=== PATIENT | female | born 1975 | race Caucasian/White ===

== ENCOUNTER 2023-02-13 09:32 | Outpatient (OUT) | payer BC, SELFPAY ==
--- NOTE | 2023-02-13 09:35 | MM_ITS ---
Patient: MARTHA INIGUEZ Exam Date: 02/13/2023 : 1975 Gender:F Ordering : DR DARCIE LOWRY Admission #: [id number] Family : Order #: [id number] CLICK HERE TO VIEW EXAM RADIOLOGY REPORT PROCEDURE: MM TOMOSYNTHESIS SCREENING BI COMPARISON: MG MAMM SCREEN 3D EOBNI CAD, 01/11/2022. MG MAMM SCREEN 3D EBONI CAD, 01/07/2021. MG MAMM SCREEN EBONI W CAD, 12/02/2019. MG MAMM SCREEN EBONI W CAD, 10/20/2016. INDICATIONS: Screening mammogram Z12.31 Calculator Name NCI Breast Cancer Risk Assessment Tool 5 Year Breast Cancer Risk 1.70% Lifetime Breast Cancer Risk 18.20% Personal Breast Cancer No Personal Ovarian Cancer No Treatments None Family Cancers Mother with breast cancer at age 68; Grandmother-maternal with uterine cancer at age ~30; Grandmother-maternal with pancreas cancer at age 80; Father with lung cancer at age 68. LOCATION: [facility] BREAST COMPOSITION: Heterogeneously dense,which may obscure small masses. FINDINGS: DIAGNOSTIC CATEGORY 2--BENIGN FINDING: RIGHT BREAST: No significant suspicious finding. Scattered benign-appearing lymph nodes are present. No significant change has occurred. LEFT BREAST: No significant suspicious finding. No significant change has occurred. RECOMMENDATIONS: ROUTINE MAMMOGRAM AND CLINICAL EVALUATION IN 12 MONTHS. PLEASE NOTE: A NORMAL MAMMOGRAM DOES NOT EXCLUDE THE POSSIBILITY OF BREAST CANCER. A CLINICALLY SUSPICIOUS PALPABLE LUMP SHOULD BE BIOPSIED. Dictated by: Sunil Forte M.D. on 02/13/2023 at 16:06 Approved by: Sunil Forte M.D. on 02/13/2023 at 16:12
== END 2023-02-13 09:33 | disposition home or self-care (01) ==
LOC: MAMMO 09:33
PROVIDERS: PCP Family Medicine; Visit Provider Family Medicine
DX: Z12.31 Encounter for screening mammogram for malignant neoplasm of breast (principal); Z80.3 Family history of malignant neoplasm of breast; Z80.1 Family history of malignant neoplasm of trachea, bronchus and lung; Z80.49 Family history of malignant neoplasm of other genital organs; Z80.8 Family history of malignant neoplasm of other organs or systems
CPT/HCPCS: 77063; 77067

== ENCOUNTER 2024-02-20 13:44 | Outpatient (OUT) | payer BC, SELFPAY ==
--- NOTE | 2024-02-20 13:51 | MM_ITS ---
Patient Name: MARTHA INIGUEZ MR#: [id number] : 1975 Exam Date: 02/20/2024 Ordering Doctor: DR DARCIE LOWRY RADIOLOGY REPORT PROCEDURE: MM TOMOSYNTHESIS SCREENING BI COMPARISON: MM TOMOSYNTHESIS SCREENING BI, 02/13/2023. MG MAMM SCREEN 3D EBONI CAD, 01/11/2022. MG MAMM SCREEN 3D EBONI CAD, 01/07/2021. MG MAMM SCREEN EBONI W CAD, 10/20/2016. INDICATIONS: Screening for malignant neoplasm Calculator Name NCI Breast Cancer Risk Assessment Tool 5 Year Breast Cancer Risk 1.80% Lifetime Breast Cancer Risk 18.00% Personal Breast Cancer No Personal Ovarian Cancer No Treatments None Family Cancers Mother with breast cancer at age 68; Grandmother-maternal with uterine cancer at age ~30; Grandmother-maternal with pancreas cancer at age 80; Father with lung cancer at age 68. LOCATION: [facility] BREAST COMPOSITION: The breasts are heterogeneously dense,which may obscure small masses. FINDINGS: DIAGNOSTIC CATEGORY 2--BENIGN FINDING: RIGHT BREAST: No significant suspicious finding. Scattered benign-appearing lymph nodes are present. No significant change has occurred. LEFT BREAST: No significant suspicious finding. No significant change has occurred. RECOMMENDATIONS: ROUTINE MAMMOGRAM AND CLINICAL EVALUATION IN 12 MONTHS. PLEASE NOTE: A NORMAL MAMMOGRAM DOES NOT EXCLUDE THE POSSIBILITY OF BREAST CANCER. A CLINICALLY SUSPICIOUS PALPABLE LUMP SHOULD BE BIOPSIED. Dictated by: Sunil Forte M.D. on 02/22/2024 at 13:46 Approved by: Sunil Forte M.D. on 02/22/2024 at 13:49
== END 2024-02-20 13:45 | disposition home or self-care (01) ==
LOC: MAMMO 13:46
PROVIDERS: PCP Family Medicine; Visit Provider Family Medicine
DX: Z12.31 Encounter for screening mammogram for malignant neoplasm of breast (principal); Z80.3 Family history of malignant neoplasm of breast; Z80.1 Family history of malignant neoplasm of trachea, bronchus and lung; Z80.8 Family history of malignant neoplasm of other organs or systems
CPT/HCPCS: 77063; 77067

== ENCOUNTER 2025-03-09 09:31 | Outpatient (OUT) | payer BC, SELFPAY ==
--- OUTSIDE RECORDS SUMMARY | 2018-08-21 04:30 | XMS_ITS | Continuity of Care Document ---
Author Organization [facility] Address [address] [place] [address] [place] [address] Phone Care Team Providers Care Mill House Supervisor Name Role Phone Unavailable Unavailable Unavailable Medications Medication Instructions Dosage Effective Dates (start - stop) Status Comments Macrobid 100 mg capsule take 1 capsule b y oral route every day - Active oxybutynin chloride ER 10 mg tablet,extended release 24 hr take 1-2 tablets by oral route every day - Active phenazopyridine 200 mg tablet take 1 tablet by oral route 3 times every day after meals 200 MG - Active Procedures Procedure Date PREV VISIT, EST, AGE 40-64 OBTAINING PAP SMEAR BUNDLED SERVICE VOID TICKET POSTOP FOLLOW-UP VISIT OFFICE/OUTPATIENT VISIT, EST CYSTOSCOPY INJECTION FOR BLADDER X-RAY POSTOP FOLLOW-UP VISIT OFFICE CONSULTATION TOTAL HYSTERECTOMY OFFICE CONSULTATION OFFICE/OUTPATIENT VISIT, EST OFFICE/OUTPATIENT VISIT, EST TRANSVAGINAL US, NON-OB PREV VISIT, NEW, AGE 40-64 URINALYSIS, AUTO, W/O SCOPE Advance Directives Directive Yes / No Effective Date File Name No Information Encounters Encounter Description Practice Location Reason(s) For Visit Diagnoses Date Provider Providers Copied on Encounter PREV VISIT, EST, AGE 40-64 [facility], [address], [place], [place], [id number] , [place] tel:[phone] [facility] No Information 9 No Information [facility], [address], [place], [place], [address] , [place] tel: [phone] [facility] No Information 7 No Information [facility], [address], [place], [place], [address] , [place] tel: [phone] [facility] No Information 7 No Information [facility], [address], [place], [place], [address] , [place] tel: [phone] [facility] No Information 7 Emery Clark. [address], [place], [place], [address], [place]. tel:[phone] OFFICE/OUTPAT IENT VISIT, [facility] [place] [employer] [facility], [address], [place], [place], [address] , [place] tel: [phone] [facility] Frequent urination (chief complaint) Urinary frequencyLacerati on of bladder, subsequent encounter 7 Tiffanie Guerra. [address], [place], [place], [address], [place]. tel:[phone] Referring Provider: Charlie Moreno MD, [address], [place], [address] . tel:[phone] [employer] [facility], [address], [place], [place], [address] , [place] [phone] [facility] No Information 7 Tiffanie Guerra. [address], [place], [place], [address], [place]. tel:[phone] Referring Provider: Charlie Moreno MD, [address], [place], [address] . tel:[phone] [facility], [address], [place], [place], [address] , [place] tel: [phone] [facility] No Information No Information OFFICE CONSULTATION [employer] [facility], [address], [place], [place], [address] , [place] tel: [phone] [facility] No Information Tiffanie Guerra. [address], [place], [place], [address], [place]. tel:[phone] Referring Provider: Charlie Moreno MD, [address], [place], [address] . tel:[phone] [facility], [address], [place], [place], [address] , [place] tel: [phone] [facility] IP No Information No Information OFFICE CONSULTATION [employer] [facility], [address] [place] [address] [address], [place], [place], [address] , [place] tel: [phone] [facility] No Information 7 Tiffanie Guerra. [address], [place], [place], [address], [place]. tel:[phone] Referring Provider: Charlie Moreno MD, [address], [place], [address] . tel:[phone] [facility], [address], [place], [place], [address] , [place] tel: [phone] [facility] No Information No Information OFFICE[facility]OUTPAT [facility]ENT VISIT, [facility], [address], [place], [place], [address] , [place] tel:[phone] [facility] No Information No Information [facility], [address], [place], [place], [address] , tel: [phone] [facility] No Information No Information PREV VISIT, NEW, AGE 40-64 [facility], [address], [place], [address] , tel: [phone] [facility] No Information No Information Family History Family Member Type Diagnosis Age At Onset No Information Payers Payer name Insurance type Covered green party ID Tsering kennedy(s) Robbie WINTER [id number] Social History Type Description Quantity Date Captured Comments Sex Female Smoking Status No Information Chief Complaint And Reason For Visit No Information Reason For Referral Reason For Referral No Information Plan Of Treatment Date Type Action Status Goal Depression screening. Due on due Goal URINALYSIS NONAUTO W/O SCOPE . Due on due Goal Glucose. Due on due Goal HPV, high+low-risk. Due on A due Goal Cytology report of Cervical and vaginal smear or scraping Cyto stain. Due on due Goal Pap/HPV testing. Due on due Goal Td vaccine. Due on 17 due Goal Influenza vaccine. Due on Au due Goal CHEMICAL ENGINEERING PROFESSOR/Breast exam. Due on due Goal Digital Mammogram Screening. Due on due Goal SCREENINGMAMMOGRAPHYDIGITAL. Due on due History Of Present Illness Encounter Date Complaint History Of Prese nt Illness Frequent urination (comments) Th is young lady just underwent a cystogram and cystoscopy following repair of a bladder tear. We identified during her VCUG that she has Grade 2 reflux which i explained to the patient. Frequent urination The onset was sudden. The patient reports pain in the back. It occurs constantly. The problem is unchanged. Past surgical treatment was Cystoscopy. Associated symptoms include incomplete emptying and urgency. Pertinent negatives include constipation, dysuria, fecal incontinence, fever, urinary frequency, hematuria, urinary hesitancy, leakage requiring pads, loss of vaginal sensation, nocturia, pain, pelvic pain, slow stream, strain to urinate and recurrent UTI. Additional information: Patient claims that she has frequency mildred 15 mins with incomplete emptying. Patient is s/p cystogram on 01/30/17. Functional Status Date Functional Assessmen t No Information Instructions Date Instruction Additional Infor mation No Information Assessments Type Assessment Date No Information Patient Care Teams Name Effective Dates (start - stop) Status Members No Information
--- OUTSIDE RECORDS SUMMARY | 2025-03-09 09:35 | XMS_ITS | Encounter Summary ---
Author Organization [facility] Address [address] [place] [address] Care Team Providers Care Logging Contractor Name Role Phone Brigette Snell MD Unavailable [phone] Yisel Armenta MD Primary Care Provider [phone] Nichole Dozier ACTIVITIES LEADER Unavailable [phone] Lisa Guallpa ACTIVITIES LEADER Unavailable [phone] Eladia Lazcano [facility] Unavailable Encounter Details Date Type Department Care Team (Late st Contact Info) Description 11/14/2022 Abstract [facility] [address] [place] [phone] Lisa Guallpa ACTIVITIES LEADER [address] [place] [address] [phone] Social History Tobacco Use Types Packs/Day Years Used Date Smoking Tobacco: Never Alcohol Use Standard Drinks/Week Comments Never 0 (1 standard drink = 0.6 oz pure alcohol) Caffeine intake 1-2 cups per day pop AUDIT-C Answer Date Recorded Q1: How often do you have a drink containing alc ohol? Never 11/15/2022 Q2: How many drinks containi ng alcohol do you have on a typical day when you are drinking? 1 or 2 11/15/2022 Q3: How often do you have six or more drinks on one occasion? 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 Never 11/15/2022 10:34 AM EDT Seema Berry LPN Q2: How many drinks containi ng alcohol do you have on a typical day when you are drinking? 1 or 2 11/15/2022 10:34 AM EDT Seema Berry LPN Q3: How often do you have si x or more drinks on one occasion? Never 11/15/2022 10:34 AM EDT Seema Cao LPN documented as of this encounter Plan of Treatment Upcoming Encounters Date Type Department Care Team (Late st Contact Info) Description 05/01/2025 9:00 AM EST Office Visit [facility] [address] [place] [address] [place] [address] Sincere Hinson MD [address] [facility] [address] [place] [address] documented as of this encounter Visit Diagnoses Not on filedocumented in this encounter Care Teams Logging Contractor Relationship Specialty Start Date End Date Brigette Snell MD [address] [place] [address] PCP - [place] [employer] [employer] 04/18/21 Yisel Armenta MD [address] [place] [address] PCP - General Family Medicine 11/15/22 Nichole Dozier NP [address] [place] [address] PCP - [employer] 01/16/2305/17 Lisa Guallpa ACTIVITIES LEADER [address] [facility] [address] [address] PCP - [place] [employer] 05/18/2306/17 Eladia Lazcano, [facility] [address] [facility] [address] [place] [address] Guitar Repair Technician Behavioral Health 07/01/24 documented as of this encounter
--- OUTSIDE RECORDS SUMMARY | 2025-03-09 09:35 | XMS_ITS | Encounter Summary ---
Author Organization [facility] Address [address] [place] [address] Care Team Providers Care Licensed Practical Vocational Nurse Name Role Phone Brigette Snell MD Unavailable [phone] Yisel Armenta MD Primary Care Provider [phone] Nichole Dozier BUSINESS APPLICATIONS DEVELOPER Unavailable [phone] Lisa Guallpa BUSINESS APPLICATIONS DEVELOPER Unavailable [phone] Eladia Lazcano [facility] Unavailable Reason for Visit * Reason Comments Med Refill Encounter Details Date Type Department Care Team (Late Contact Info) Description 11/06/2022 Refill [facility] [place] [facility] [address]SEPH [address] [place] [phone] Sincere Hinson MD [address] Joseph [address] [place] [address] [phone] Migraine without aura and without status migrainosus, not intractable (Primary Dx) Social History Tobacco Use Types Packs/Day Years Used Date Smoking Tobacco: Never Assessed Comments Unknown Sex and Gender Information Value Date Recorded Sex Assigned at Female 11/13/2022 10:45 PM EDT Legal Sex Female 7:06 PM EDT Gender Identity Female 08/30/2022 7:06 PM EDT Sexual Orientation Straight 11/13/2022 10 :45 PM EDT documented as of this encounter Plan of Treatment Upcoming Encounters Date Type Department Care Team (Late Contact Info) Description 05/01/2025 9:00 AM EST Office Visit [facility] [address] [facility] [address] [place] [address] Sincere Hinson MD [address] [facility] [address] [place] [address] [phone] documented as of this encounter Visit Diagnoses Diagnosis Migraine without aura and without status migrainosus, not intractable- Primary documented in this encounter Care Teams Licensed Practical Vocational Nurse Relationship Specialty Start Date End Date Brigette Snell MD [address] [place] [address] PCP - [place] [employer] 04/18/21 Yisel Armenta MD [address] [place] [address] PCP - General Family Medicine 11/15/22 Nichole Dozier NP [address] [place] [address] PCP - [place] [employer] 01/16/2305/17 Lisa Guallpa NP [address] [place] [phone] PCP - [place] [employer] 05/18/2306/17 Eladia Lazcano, [facility] [address] [facility] [address] [place] [address] Ladle Cleaner Behavioral Health 07/01/24 documented as of this encounter
--- OUTSIDE RECORDS SUMMARY | 2025-03-09 09:35 | XMS_ITS | Encounter Summary ---
Author Organization [facility] [facility] Address [id number] [address] [place] [address] Care Team Providers Care Water Rights Specialist Name Role Phone Yisel Armenta MD Primary Care Provider [phone] Encounter Details Date Type Department Care Team (Late st Contact Info) Description 09/01/2024 Telephone [facility] [address] [place] [phone] Giovani Caro PA [address] [facility], [address] [place] [address] Social History Tobacco Use Types Packs/Day Years Used Date Smoking Tobacco: Never Smokeless Tobacco: Never Alcohol Use Standard Drinks/Week Comments Not Currently 0 (1 standard drink = 0.6 oz pur e alcohol) Childcare Answer Date Recorded Childcare Unknown 11/27/2018 Employment Answer Date Recorded Employment Unknown 11/27/2018 Hunger Screening Answer Date Recorded Within the past 12 months we worried whether our food would run out before we got money to buy more. Never True 08/06/2024 Within the past 12 months th e food we bought just didn't last and we didn't have money to get more. Never True 08/06/2024 Purpose - Life Answer Date Recorded Purpose and direction in life Unknown Comments No Sex and Gender Information Value Date Recorded Sex Assigned at Not on file Legal Sex Female 12:04 PM EDT Gender Identity Not on file Sexual Orientation Not on file documented as of this encounter Miscellaneous Notes * Telephone Encounter - Trinity Rodriguez - 09/01/2024 12:24 PM EDT Called pt to see if she would like to move her procedure up to 09/12. Left VM documented in this encounter Plan of Treatment Not on file documented as of this encounter Visit Diagnoses Not on filedocumented in this encounter Care Teams Water Rights Specialist Relationship Specialty Start Date End Date Yisel Armenta MD [address] [place] [address] PCP - General Family Medicine 10/26/16 documented as of this encounter
--- OUTSIDE RECORDS SUMMARY | 2025-03-09 09:35 | XMS_ITS | Encounter Summary ---
Author Organization [facility] Address [address] [place] [address] Care Team Providers Care Paper Plate Machine Tender Name Role Phone Brigette Snell MD Unavailable [phone] Yisel Armenta MD Primary Care Provider [phone] Nichole Dozier BATCH OR CONTINUOUS STILL OPERATOR Unavailable [phone] Lisa Guallpa BATCH OR CONTINUOUS STILL OPERATOR Unavailable [phone] Eladia Lazcano [facility] Unavailable Encounter Details Date Type Department Care Team (Late st Contact Info) Description 11/28/2022 Abstract [facility] [address] [facility] [address] [place] [phone] Eladia Lazcano, [facility] [address] [facility] [address] [place] [address] Social History Tobacco Use Types Packs/Day Years Used Date Smoking Tobacco: Never Passive Smoke Exposure: Never Smokeless Tobacco: Never Alcohol Use Standard Drinks/Week Comments Yes 0 (1 standard drink = 0.6 oz [...] file Not on file Not on file COVID-19 Exposure Response Date Recorded In the last 10 days, have yo u been in contact with someone who was confirmed or suspected to have Coronavirus/COVID-19? No / Unsure 11/28/2022 9:03 AM EDT documented as of this encounter Plan of Treatment Upcoming Encounters Date Type Department Care Team (Late st Contact Info) Description 05/01/2025 9:00 AM EST Office Visit [facility] [address] [place] [address] [place] [address] Sincere Hinson MD [address] [facility] [address] [place] [phone] documented as of this encounter Visit Diagnoses Not on filedocumented in this encounter Care Teams Paper Plate Machine Tender Relationship Specialty Start Date End Date Brigette Snell MD [address] [place] [address] PCP - [place] [employer] 04/18/21 Yisel Armenta MD [address] [place] [address] PCP - General Family Medicine 11/15/22 Nichole Dozier NP [address] [facility] [place] [address] PCP - [place] [employer] 01/16/2305/17 Lisa Guallpa NP [address] [place] [address] PCP - [place] [employer] 05/18/2306/17 Eladia Lazcano, [facility] [address] [facility] [address] [place] [address] Operating Systems Programmer Behavioral Health 07/01/24 documented as of this encounter
--- OUTSIDE RECORDS SUMMARY | 2025-03-09 09:35 | XMS_ITS | Encounter Summary ---
Author Organization [facility] Healthcare Address [address] [place] [address] Care Team Providers Care Business Services Coordinator Name Role Phone Brigette Snell MD Unavailable Yisel Armenta MD Primary Care Provider [phone] Nichole Dozier PSYCHOLOGICAL AIDE Unavailable Lisa Guallpa PSYCHOLOGICAL AIDE Unavailable Eladia Lazcano [facility] Unavailable Encounter Details Date Type Department Care Team (Late st Contact Info) Description 11/08/2022 Abstract [facility] [address] [place] [phone] Marv Allen, PT [address] [place], [place] [phone] Social History Tobacco Use Types Packs/Day Years Used Date Smoking Tobacco: Never Tobacco Cessation:Counseling Given: Not Answered Alcohol Use Standard Drinks/Week Comments Never 0 (1 standard drink = 0.6 oz pure alcohol) Caffeine intake 1-2 cups per day pop Comments Unknown Sex and Gender Information Value [...] on file documented as of this encounter Plan of Treatment Upcoming Encounters Date Type Department Care Team (Late st Contact Info) Description 05/01/2025 9:00 AM EST Office Visit [facility] [address] [email or web address] [address] [place] [address] Sincere Hinson MD [address] [facility] [address] [facility] [place], [place] [phone] documented as of this encounter Visit Diagnoses Not on filedocumented in this encounter Care Teams Business Services Coordinator Relationship Specialty Start Date End Date Brigette Snell MD [address] [place] [address] PCP - [place] [employer] 04/18/21 Yisel Armenta MD [address] [place] [address] PCP - General Family Medicine 11/15/22 Nichole Dozier NP [address] [place] [address] PCP - [place] [employer] 01/16/2305/17 Lisa Guallpa NP [address] [place] [address] PCP - [place] [employer] 05/18/2306/17 Eladia Lazcano, [facility] [address] [facility] [[email or web address] [address] [place] [address] Gas Compressor Operator Behavioral Health 07/01/24 documented as of this encounter
--- OUTSIDE RECORDS SUMMARY | 2025-03-09 09:36 | XMS_ITS | Clinical Summary ---
Author Organization [employer] Address [id number] [address] [place] [address] Care Team Providers Care Heel Pricker Name Role Phone Yisel Armenta MD Primary Care Provider [phone] Allergies Active Allergy Reactions Criticality Noted Date Comments Sulfamethoxazole-Trimethoprim Rash Low 2016 Cephalosporins 06/29/2021 Other reaction(s): nausea/vomiting Penicillins Hives,Rash Low 02/28/2017 Medications DULoxetine (CYMBALTA) 60 mg capsule Take 90 mg by mouth nightly. Active topiramate 200 mg capsule,extende d release 24hr Take 200 mg by mouth nightly. Active atorvastatin (LIPITOR) 20 mg tablet Take 1 tablet (20 mg total) by mouth in the morning. Active nebivolol (BYSTOLIC) 10 mg tablet Take 1 tablet (10 mg total) by mouth in the morning and at bedtime. Active albuterol (PROVENTIL HFA;VENTOLIN HFA) 90 mcg/actuation inhaler Inhale 2 puffs every 6 (six) hours as needed. Active amphetamine-dex troamphetamine XR (ADDERALL XR) 20 mg 24 hr capsule 03/22/2021 Active erenumab-aooe 140 mg/mL auto-injectorIn dications:migra ine prevention Inject 140 mg under the skin every 28 days Indications: migraine prevention. Active gabapentin (NEURONTIN) 300 mg capsule Take 1 capsule (300 mg total) by mouth in the morning and at bedtime. Active traMADoL (ULTRAM) 50 mg tablet Take 1 tablet (50 mg total) by mouth every 6 (six) hours as needed for pain. Active cholecalciferol , vitamin D3, 5,000 units tablet Take 1 tablet (5,000 Units total) by mouth in the morning. Active lidocaine (LIDODERM) 5 % Place 1 patch on the skin daily. Remove & Discard patch within 12 hours or as directed by MD Active Active Problems Problem Noted Date Diagnosed Date Lumbar spondylosis 03/12/2024 Trochanteric bursitis of both hips 03/12/2024 Spinal stenosis of lumbar re gion with neurogenic claudication 03/12/2024 Disorder of sacrum 03/12/2024 Dehydration 08/23/2021 POTS (postural orthostatic tachycardia syndrome) 01/06/2021 Seasonal allergies 01/06/2021 NICOLE (obstructive sleep apnea) 01/06/2021 Dyslipidemia 01/06/2021 Depression 01/06/2021 H/O cardiomyopathy 01/06/2021 Dyspnea on exertion 01/06/2021 Chronic cough 01/06/2021 Mild persistent asthma without complication 12/17 Encounters Date Type Department Care Team Description 01/20/2025 Travel from Last 3 Months Family History Medical History Relation Name Comments Alcohol abuse Father Cancer Father Clotting disorder Father Heart disease Father Hypertension Father Lung cancer Father Lung disease Father Diabetes Maternal Aunt Hearing loss Maternal Aunt Diabetes Maternal Grandfather Heart disease Maternal Grandfather Hypertension Maternal Grandfather Cancer Maternal Grandmother Colon cancer Maternal Grandmother Ovarian cancer Maternal Grandmother Pancreatic cancer Maternal Grandmother Anxiety disorder Mother Arthritis Mother Breast cancer Mother Cancer Mother Hypertension Mother Mental illness Mother Miscarriages / Stillbirths Mother Cancer Niece Heart disease Paternal Grandfather Hypertension Paternal Grandfather Stroke Paternal Grandfather Relation Name Status Comments Father Maternal Aunt Maternal Grandfather Maternal Grandmother Mother Niece Other Paternal Grandfather Social History Tobacco Use Types Packs/Day Years Used Date Smoking Tobacco: Never Smokeless Tobacco: Never Tobacco Cessation:Counseling Given: Not Answered Alcohol Use Standard Drinks/Week Comments Not Currently 0 (1 standard drink = 0.6 oz pur e alcohol) Childcare Answer Date Recorded Childcare Unknown 11/27/2018 Employment Answer Date Recorded Employment Unknown 11/27/2018 Hunger Screening Answer Date Recorded Within the past 12 months we worried whether our food would run out before we got money to buy more. Never True 10/22/2024 Within the past 12 months th e food we bought just didn't last and we didn't have money to get more. Never True 10/22/2024 Purpose - Life Answer Date Recorded Purpose and direction in life Unknown Comments No Sex and Gender Information Value Date Recorded Sex Assigned at Not on file Legal Sex Female 12:04 PM EDT Gender Identity Not on file Sexual Orientation Not on file Last Filed Vital Signs Vital Sign Reading Time Taken Comments Blood Pressure 145/98 10/22/2024 8:26 AM EDT Pulse 80 10/22/2024 8:26 AM EDT Temperature 36.6 C (97.8 F) 09/19/2024 6:45 AM EDT Respiratory Rate 20 10/22/2024 8:26 AM EDT Oxygen Saturation 100% 09/19/2024 7:51 AM EDT Inhaled Oxygen Concentration - - Weight 79.4 kg (175 lb) 07/02/2024 8:22 AM EST Height 157.5 cm (5' 2 ) 07/02/2024 8:22 AM EST Body Mass Index 32.01 07/02/2024 8:22 AM EST Plan of Treatment Health Maintenance Due Date Last Done Comments Depression Screening 1988 Adult BMI Follow Up Plan 1994 DTaP,Tdap and Td Vaccines (2 - Td or Tdap) 11/16/2021 11/17/2011 COVID-19 Vaccine (4 - 2024-2 6 season) 2025 06/25/2021, 10/13/2020, 09/15/2020 Influenza Vaccine 02/16/2025 03/03/2024, , 03/27/2022, Additional history exists Adult BMI Screening 07/02/2025 07/02/2024 Tobacco Screening 10/22/2025 10/22/2024 Medical Devices Not on file Insurance ANTH Care Teams Heel Pricker Relationship Specialty Start Date End Date Yisel Armenta MD [address] [place] [address] PCP - General Family Medicine 10/26/16
--- OUTSIDE RECORDS SUMMARY | 2025-03-09 09:36 | XMS_ITS | Patient Health Record ---
Author Organization [facility] in [place] Address [address] [place] [address] Support Name Relationship Address Phone JosephPaddy hartley Emergency Contact Unknown Unavailabl e Elida Ruiz Guarantor Unknown [phone] Allergies Allergen (clinical drug ingredient) Drug/Non Drug Allergy documented on EMR Reaction Allergy Type Onset Date Status sulfamethoxazole / trimethoprim bactrim (uncoded) Unknown Allergy Active A-Cillin (penicillin) Unknown Drug Allergy Active Reason For Referral No Information Medications Medication SIG (Take, Route, Frequency, Duration) Notes Start Date End Date Status Midodrine HCl 10 MG 1 tablet Orally Thre e times a day Active Cymbalta 30 MG 1 capsule Orally Twice a day 3 daily Active Trokendi XR 200 MG 1 capsule Orally Onc e a day 300 mg daily Active Bystolic 5 MG 1 tablet Orally Once a day Active Ferrous Sulfate 325 (65 Fe) MG 1 tablet Orally Once a day 2 daily Active Atorvastatin Calcium 20 MG 1 tablet Orally Once a day Active Vitamin D (Ergocalciferol) 71046 UNIT 1 capsule Orally weekly Active Social History Tobacco Use: Social History Observation Description Date Details (start date - stop date) Never Smoker NA - NA Tobacco Use/Smoking Question Answer Notes Patient is a nonsmoker Problems Problem Type SNOMED Code ICD Code Onset Dates Problem Status W/U Status Risk Notes Problem Lumbosacral spondylosis with radiculopathy (083965321) Lumbosacral spondylosis with radiculopathy (M47.27) Active confirmed Problem Lumbosacral spondylosis without myelopathy (38194850) Lumbosacral spondylosis without myelopathy (M47.817) Active confirmed Plan Of Treatment No Information Insurance Providers Payer Name Payer Address Payer Phone Subscriber Number Group Number Insured Name Patient Relationship to Insured Coverage Start Date Coverage End Date AN[employer]M ACCESS PPO PLUS LOCAL PLAN [address] [place] [phone] [id number] Elida Ruiz Self - patient is the insured 8 Medical (General) History Medical History History ICD Code cholesterol mcrae syundrome eds hypertension migraines Surgical History Surgery Date(Month/Year) implanted loop recorder b knee scope gallbladder c section sinus x 2 hysterectomy
--- OUTSIDE RECORDS SUMMARY | 2025-03-09 09:36 | XMS_ITS | Encounter Summary ---
Author Organization [employer] Address [id number] [address] [place] [address] Care Team Providers Care Gunner Mate Name Role Phone Yisel Armenta MD Primary Care Provider [phone] Reason for Visit * Reason Comments Med Refill Encounter Details Date Type Department Care Team (Late st Contact Info) Description 04/19/2022 Refill [facility] [address] [place] [address] Joana Oh, DO [address] [phone] Mild persistent asthma without complication Social History Tobacco Use Types Packs/Day Years Used Date Smoking Tobacco: Never Smokeless Tobacco: Never Childcare Answer Date Recorded Childcare Unknown 11/27/2018 Employment Answer Date Recorded Employment Unknown 11/27/2018 Purpose - Life Answer Date Recorded Purpose and direction in life Unknown Comments No Sex and Gender Information Value Date Recorded Sex Assigned at Not on file Legal Sex Female 12:04 PM EDT Gender Identity Not on file Sexual Orientation Not on file COVID-19 Exposure Response Date Recorded In the last month, have you been in contact with someone who was confirmed or suspected to have Coronavirus / COVID-19? No / Unsure 03/31/2022 1:09 PM EDT documented as of this encounter Plan of Treatment Not on file documented as of this encounter Visit Diagnoses Diagnosis Mild persistent asthma without complication documented in this encounter Care Teams Gunner Mate Relationship Specialty Start Date End Date Wonderly, Yisel Forte MD [address] [place] [address] PCP - General Family Medicine 10/26/16 documented as of this encounter
--- OUTSIDE RECORDS SUMMARY | 2025-03-09 09:36 | XMS_ITS | Encounter Summary ---
Author Organization [facility] Address [address] [place] [address] Care Team Providers Care Professor Of Practice Name Role Phone Brigette Snell MD Unavailable [phone] Yisel Armenta MD Primary Care Provider Nichole Dozier ACTIVITIES LEADER Unavailable [phone] Lisa Guallpa ACTIVITIES LEADER Unavailable Eladia Lazcano [facility] Unavailable Encounter Details Date Type Department Care Team (Late st Contact Info) Description 12/15/2022 Abstract [facility] [address] [place] [phone] Sincere Hinson MD [address] [place] [address] [phone] Social History Tobacco Use Types Packs/Day Years [...] [facility] [address] [place] [phone] Sincere Hinson MD [address] [place] [address] documented as of this encounter Visit Diagnoses Not on filedocumented in this encounter Care Teams Professor Of Practice Relationship Specialty Start Date End Date Brigette Snell MD [address] [place] [address] PCP - [employer] 04/18/21 Yisel Armenta MD [address] [place] [address] PCP - General Family Medicine 11/15/22 Nichole Dozier NP [address] [place] [address] PCP - [employer] 01/16/2305/17 Lisa Guallpa NP [address] [place] [id number] PCP - [employer] 05/18/2306/17 Eladia Lazcano, [facility] [address] [place] [address] [facility] 07/01/24 documented as of this encounter
--- OUTSIDE RECORDS SUMMARY | 2025-03-09 09:36 | XMS_ITS | Clinical Summary ---
Author Organization [facility], [facility] Address [address] [place] [address] Care Team Providers Care Admitting Interviewer Name Role Phone Unavailable Primary Care Provider Unavailabl e Social History Tobacco Use Types Packs/Day Years Used Date Smoking Tobacco: Never Assessed Comments Unknown Sex and Gender Information Value Date Recorded Sex Assigned at Not on file Legal Sex Female 8:03 AM EDT Gender Identity Not on file Sexual Orientation Not on file Plan of Treatment Health Maintenance Due Date Last Done Comments Cologuard (average risk only) 1976 Colonoscopy 1976 Colorectal Cancer Screening 1976 FIT (average risk only) 1976 Hepatitis C Screening 1976 Alternating Mammogram/MRI 1988 DTaP,Tdap,and Td Vaccines (1 - Tdap) 1995 Hepatitis B Vaccine ages 19 years and older (1 of 3 - 19+ 3-dose series) 1995 Breast Cancer Screening 1996 Mammogram 1996 Cervical Cancer Screening: Cytology 1997 COVID-19 Vaccine (2023-2 5 season) 2025 Influenza Vaccine (#1) 2025 Respiratory Syncytial Virus (RSV) or ages 60 years and older (1 - 1-dose 75+ series) 2051 Pneumococcal Combined Aged Out No deisi damián eligible based on patient's age to complete this topic Respiratory Syncytial Virus (RSV) ages 0 thru 19 months Aged Out No longer eligible based on patient's age to complete this topic
--- OUTSIDE RECORDS SUMMARY | 2025-03-09 09:36 | XMS_ITS | Encounter Summary ---
Author Organization [employer] Address [id number] [address] [place] [address] Care Team Providers Care Scoop Operator Name Role Phone Yisel Armenta MD Primary Care Provider [phone] Encounter Details Date Type Department Care Team (Late st Contact Info) Description 08/23/2021 Abstract [facility] - Medical Oncology [address] [place] [address] Babita Jeffries Social History Tobacco Use Types Packs/Day Years [...] suspected to have Coronavirus/COVID-19? No / Unsure 08/25/2021 8:18 AM EST documented as of this encounter Plan of Treatment Not on file documented as of this encounter Visit Diagnoses Not on filedocumented in this encounter Care Teams Scoop Operator Relationship Specialty Start Date End Date Yisel Armenta MD [address], [place] [phone] PCP - General Family Medicine 10/26/16 documented as of this encounter
--- OUTSIDE RECORDS SUMMARY | 2025-03-09 09:36 | XMS_ITS | Encounter Summary ---
Author Organization [facility] Address [address] [place] [address] Phone Care Team Providers Care Laboratory Coordinator Name Role Phone Unavailable Primary Care Provider Unavailabl e Encounter Details Date Type Department Care Team (Late st Contact Info) Description 09/10/[address] [facility] [address] [place] [address] Conversion, Onbase Social History Tobacco Use Types Packs/Day Years Used Date Smoking Tobacco: Never Assessed Comments Unknown Sex and Gender Information Value Date Recorded Sex Assigned at Not on file Legal Sex Female 1:08 PM EST Gender Identity Not on file Sexual Orientation Not on file documented as of this encounter Plan of Treatment Scheduled Orders Name Type Priority Associated Diagnoses Orde r Schedule MISCELLANEOUS GENETICS TEST Lab Ordered: 09/10/2017 documented as of this encounter Visit Diagnoses Not on filedocumented in this encounter
--- OUTSIDE RECORDS SUMMARY | 2025-03-09 09:36 | XMS_ITS | Encounter Summary ---
Author Organization [facility] Address [address] [facility] [place] [place] [address] Care Team Providers Care Radio Installer Automobile Name Role Phone Yisel Armenta MD Primary Care Provider Nichole Dozier SENIOR LEAD SOFTWARE ENGINEER Unavailable [phone] Lisa Guallpa SENIOR LEAD SOFTWARE ENGINEER Unavailable Eladia Lazcano [facility] Unavailable Encounter Details Date Type Department Care Team (Late st Contact Info) Description 04/01/2023 Abstract [facility] [address] [facility] [address] [place] [phone] Eladia Lazcano, [facility] [address] [facility] [address] [place] [address] Social History Tobacco Use Types Packs/Day Years [...] suspected to have Coronavirus/COVID-19? No / Unsure 03/27/2023 11:45 PM EDT documented as of this encounter Plan of Treatment Upcoming Encounters Date Type Department Care Team (Late st Contact Info) Description 05/01/2025 9:00 AM EST Office Visit [facility] [address] [place] [address] Sincere Hinson MD [address] [place] [address] documented as of this encounter Visit Diagnoses Not on filedocumented in this encounter Care Teams Radio Installer Automobile Relationship Specialty Start Date End Date Yisel Armenta MD PCP - General Family Medicine 11/15/22 Nichole Dozier NP [address] [place] [address] PCP - [employer] 01/16/2305/17 Lisa Guallpa NP [address] [place] [address] PCP - [employer] 05/18/2306/17 Eladia Lazcano [facility] [address] [place] [address] [facility] 07/01/24 documented as of this encounter
--- OUTSIDE RECORDS SUMMARY | 2025-03-09 09:36 | XMS_ITS | Clinical Summary ---
Author Organization [facility] Healthcare Address [address] [place] [address] Care Team Providers Care Career Guidance Counselor Name Role Phone Yisel Lowry MD Primary Care Provider [phone] Eladia Lazcano [facility] Unavailable [phone] Allergies Active Allergy Reactions Criticality Noted Date Comments Cephalosporins 06/23/2021 Other Reaction(s): nausea/vomiting Other reaction(s): nausea/vomiting Penicillins Hives,Rash Low 09/25/2006 Other Reaction(s): Other vomiting and rash Other Reaction(s): other Sulfamethoxazole-Trimethoprim Rash Low 2013 Other Reaction(s): Other Medications nebivolol (Bystolic) 20 MG tabletIndications :Hypertension Take 20 mg by mouth Daily Active cholecalciferol (Vitamin D-3) 125 MCG (5000 UT) capsuleIndication s:Vitamin D Deficiency Take 20,000 Units by mouth Daily Pt is taking 20,000 IU qd Active naproxen (Naprosyn) 250 MG tablet 500 mg in the morning and 500 mg in the evening. Take with meals. Active erenumab (Aimovig) 140 MG/ML injection Inject 140 mg under the skin every 28 (twenty-eigh t) days. 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 90 tablet 3 5 04/29/20 25 Active gabapentin (Neurontin) 300 MG capsuleIndication s:POTS (postural orthostatic tachycardia syndrome),Lumbar radiculopathy,Sma ll fiber neuropathy Take 1 capsule (300 mg) by mouth in the morning and 1 capsule (300 mg) in the evening and 1 capsule (300 mg) before bedtime. 270 capsule 5 04/29/20 25 Active amphetamine-dextr oamphetamine XR (Adderall XR) 20 MG 24 hr capsuleIndication s:ADHD, predominantly inattentive type Take 1 capsule (20 mg) by mouth in the morning. Do not crush or chew. 30 capsule 5 03/20/20 25 Active amphetamine-dextr oamphetamine XR (Adderall XR) 20 MG 24 hr capsuleIndication s:ADHD, predominantly inattentive type Take 1 capsule (20 mg) by mouth in the morning. Do not crush or chew. 90 capsule 5 02/12/20 25 Discontin ued(Reord er) amphetamine-dextr oamphetamine XR (Adderall XR) 20 MG 24 hr capsuleIndication s:ADHD, predominantly inattentive type Take 1 capsule (20 mg) by mouth in the morning. Do not crush or chew. 90 capsule 5 02/18/20 25 Discontin ued(Reord er) amphetamine-dextr oamphetamine XR (Adderall XR) 20 MG 24 hr capsuleIndication s:ADHD, predominantly inattentive type Take 1 capsule (20 mg) by mouth in the morning. Do not crush or chew. 90 capsule 5 02/19/20 25 Discontin ued(Reord er) Active Problems Problem Noted Date Diagnosed Date Disorder of sacrum 03/12/2024 Trochanteric bursitis of both hips 03/12/2024 Narrowing of intervertebral disc space Paresthesias 04/02/2023 Occipital neuralgia of left side 03/29/2023 Foraminal stenosis of lumbar region 03/14/2023 Lumbar radiculopathy 01/02/2023 Acquired absence of both cervix and uterus 11/15 Decreased hearing of left ear 11/15/2022 Disturbance of skin sensation 11/15/2022 Extrapyramidal disease 11/15/2022 Falls 11/15/2022 History of abdominal hysterectomy 11/15/2022 Lumbago with sciatica, left side 11/15/2022 Facet arthritis of lumbar region 11/15/2022 Other headache syndrome 11/15/2022 Primary osteoarthritis 05/02/2021 Memory loss 02/24/2021 Small fiber neuropathy 02/24/2021 Mild persistent asthma without complication 12/17 POTS (postural orthostatic tachycardia syndrome) 01/06/2021 Seasonal allergies 01/06/2021 H/O cardiomyopathy 01/06/2021 ADHD, predominantly inattentive type 01/04/2021 Dyspnea on exertion 10/26/2020 Generalized anxiety disorder 08/24/2020 Maltracking of right patella 09/24/2019 Chondromalacia of patella, right 06/05/2019 Neuropathy 11/10/2018 Cervical spondylosis without myelopathy 09/18/19 Lumbosacral spondylosis without myelopathy 09/18 Sensitivity to sunlight 09/11/2017 Inflammation of sacroiliac joint 04/24/2017 Patellofemoral syndrome of right knee 10/09/2016 Chronic pain 10/27/2015 Chronic rhinitis 04/20/2015 Cyst of thyroid 04/20/2015 Depressive disorder 04/20/2015 Dyslipidemia 04/20/2015 Extrapyramidal movements present 04/20/2015 History of pre-eclampsia 04/20/2015 Iron deficiency anemia 04/20/2015 Obstructive sleep apnea of adult 04/20/2015 Obesity (BMI 30.0-34.9) 04/20/2015 Pure hyperglyceridemia 04/20/2015 Restless legs 04/20/2015 Vitamin D deficiency 04/20/2015 Chronic fatigue syndrome 04/06/2015 Essential hypertension 05/05/2014 Cutaneous sensory hypersensitivity 04/30/2014 Nausea 01/27/2014 Gastro-esophageal reflux disease with esophagiti s 01/30/2013 Syncope and collapse 05/01/2011 Overview (03/14/2023): POTS Irritable bowel syndrome 07/18/2010 Diarrhea 07/18/2010 Vomiting 07/18/2010 Migraine 07/18/2010 Hyperkinetic heart disease 07/10/2007 Chronic sinusitis 05/31/2007 Disturbance in sleep behavior 05/31/2007 Polyuria 05/31/2007 Resolved Problems Problem Noted Date Diagnosed Date Resolved Date Acute meniscal tear, medial 11/15/2022 05/05/2024 Pain in left knee 11/15/2022 05/05/2024 Dehydration 08/23/2021 10/24/2023 Sequelae of other specified infectious and parasitic diseases 06/21/2021 05/05/2024 Acute pansinusitis 01/20/2021 Otitis media 01/20/2021 10/24/2023 Chronic cough 01/06/2021 05/05/2024 Insomnia 08/11/2020 05/05/2024 History of severe acute resp iratory syndrome coronavirus 2 (SARS-CoV-2) disease 07/24/202010/23 Internal derangement of right knee 07/18/2019 05/05/2024 Muscle strain 09/13/2018 05/05/2024 Pain in right knee 04/05/2016 History of irritable bowel syndrome 04/20/2015 05/05/2024 Epigastric pain 04/25/2012 05/05/2024 Abdominal pain 07/18/2010 05/05/2024 Dizziness and giddiness 05/31/200704/18 Encounters Date Type Department Care Team Description 02/17/2025 Telephone [facility] [address] [place] [address] Sincere Hinson MD 02/11/2025 Refill [facility] [address] [place] [address] Sincere Hinson MD ADHD, predominantly inattentive type 01/29/2025 11:00 AM EDT Office Visit [facility] [address] [place] [address] Sincere Hinson MD POTS (postural orthostatic tachycardia syndrome); ADHD, predominantly inattentive type ; Lumbar radiculopathy; Small fiber neuropathy 01/29/2025 Bamboo flowsheet [facility] [address] [place] [id number] Sincere Hinson MD 01/29/2025 Travel 01/12/2025 12:00 PM EDT Telemedicine [facility] [address] [place] [address] Eladia Lazcano, [facility] Generalized anxiety disorder (CMS/FORMER[facility]) [F41.1]; Depressive disorder 01/12/2025 Bamboo flowsheet [facility] [address] [place] [address] Eladia Lazcano, [facility] 01/12/2025 Travel 01/08/2025 Refill [facility] [address] [place] [address] Yisel Lowry MD Dyslipidemia from Last 3 Months Immunizations Immunization Administration Dates Next Due Influenza Whole 03/19/2012 Influenza, Unspecified 03/18/2018,05/03/2016,06/2013 Influenza, injectable, MDCK, preservative free, quadrivalent 05/20/2021 Influenza, injectable, quadrivalent 03/18/2019 Influenza, injectable, quadr ivalent, preservative free 04/18/2023,03/27/2022,04/12/2020,2018,03/06/2018,03/28/2017,03/28/2016 Influenza, injectable, quadr ivalent, preservative free, pediatric 04/05/2021 Influenza, live, intranasal 03/19/2015 Influenza, seasonal, injecta ble, preservative free 03/03/2024 Tdap 11/17/2011 Family History Medical History Relation Name Comments Alcohol abuse Father Demetrius Cancer Father Demetrius Heart disease Father Demetrius Hypertension Father Demetrius Lung cancer Father Demetrius Cancer Maternal Grandmother Mateo Anxiety disorder Mother Una Arthritis Mother Una Breast cancer Mother Una metastatic Cancer Mother Una Hypertension Mother Una Mental illness Mother Una Miscarriages / Stillbirths Mother Una Diabetes Mother's Sister Jyoti Hearing loss Mother's Sister Jyoti Cervical cancer Niece Stroke Paternal Grandfather Judd Psoriasis Neg Hx Relation Name Status Comments Brother 2 brothers Daughter 2 daughters(twi ns), healthy Father Demetrius (Age 68) Maternal Grandmother Mateo Mother Una Mother's Sister Jyoti Niece Paternal Grandfather Judd Sister 2 sisters Social History Tobacco Use Types Packs/Day Years Used Date Smoking Tobacco: Never Passive Smoke Exposure: Never Smokeless Tobacco: Never Comments:Parents were heavy smokers growing up Alcohol Use Standard Drinks/Week Comments Not Currently 0 (1 standard drink = 0.6 oz pure alcohol) Caffeine intake 1-2 cups per day pop Humiliation, Afraid, Rape, and Kick questionnair e Answer Date Recorded Within the last year, have y ou been afraid of your partner or ex-partner? No 04/18/2023 Within the last year, have y ou been humiliated or emotionally abused in other ways by your partner or ex-partner? No Within the last year, have y ou been kicked, hit, slapped, or otherwise physically hurt by your partner or ex-partner? No 04/18/2023 Within the last year, have y ou been raped or forced to have any kind of sexual activity by your partner or ex-partner? No 04/18/2023 Social Connection and Isolat ion Panel [NHANES] Answer Date Recorded In a typical week, how many times do you talk on the phone with family, friends, or neighbors? Three times a week 04/18/2023 How often do you get togethe r with friends or relatives? Once a week 04/18/2023 How often do you attend chur ch or confucianism services? More than 4 times per year 04/18/2023 Do you belong to any clubs o r organizations such as yazdanism groups, unions, fraternal or athletic groups, or school groups? Yes 04/18/2023 How often do you attend meet ings of the clubs or organizations you belong to? 1 to 4 times per year 04/18/2023 Are you , , di vorced, , never , or living with a partner? 04/18/2023 AUDIT-C Answer Date Recorded Q1: How often do you have a drink containing alcohol? Never 04/18/2023 Q2: How many drinks containi ng alcohol do you have on a typical day when you are drinking? Patient does not drink Q3: How often do you have si x or more drinks on one occasion? Never 04/18/2023 Overall Financial Resource Strain (CARDIA) Answe r Date Recorded How hard is it for you to pa y for the very basics like food, housing, medical care, and heating? Not hard at all 04/18/2023 [facility] - Occupational Stress Questionnaire Answer Date Recorded Do you feel stress - tense, restless, nervous, or anxious, or unable to sleep at night because your mind is troubled all the time - these days? Patient declined 04/18/2023 Exercise Vital Sign Answer Date Recorde d On average, how many days pe r week do you engage in moderate to strenuous exercise (like a brisk walk)? Patient declined On average, how many minutes do you engage in exercise at this level? Patient declined 04/18/2023 Hunger Vital Sign Answer Date Recorded Within the past 12 months, y ou worried that your food would run out before you got the money to buy more. Never true 04/18/20 23 Within the past 12 months, t he food you bought just didn't last and you didn't have money to get more. Never true 04/18/2023 PRAPARE - Transportation Answer Date Re corded In the past 12 months, has l ack of transportation kept you from medical appointments or from getting medications? No 06/2022 In the past 12 months, has l ack of transportation kept you from meetings, work, or from getting things needed for daily living? No 04/18/2023 Housing Stability Vital Sign Answer Munir e Recorded In the last 12 months, was t here a time when you were not able to pay the mortgage or rent on time? No 04/18/2023 In the last 12 months, how many places have you lived? 1 04/18/2023 In the last 12 months, was t here a time when you did not have a steady place to sleep or slept in a long term (including now)? 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 Not on file Not on file Not on file Last Filed Vital Signs Vital Sign Reading Time Taken Comments Blood Pressure 142/86 01/29/2025 11:03 AM EDT Pulse 72 05/05/2024 9:05 AM EST Temperature - - Respiratory Rate - - Oxygen Saturation - - Inhaled Oxygen Concentration - - Weight 79.8 kg (176 lb) 01/29/2025 11:03 AM EDT Height 158.8 cm (5' 2.5 ) 01/29/2025 11:03 AM ED T Body Mass Index 31.68 01/29/2025 11:03 AM EDT Plan of Treatment Upcoming Encounters Date Type Department Care Team (Late st Contact Info) Description 05/01/2025 9:00 AM EST Office Visit [facility] [address] [place] [address] Sincere Hinson MD [address] Joseph [address] [place] [address] Health Maintenance Due Date Last Done Comments CT Colonography 1975 Colonoscopy 1976 FIT 1975 FOBT 1975 Pap Smear 09/25/2002 09/26/1999, 10/27/1998 Sigmoidoscopy 09/26/2011 09/25/2006 Cervical Cancer Screening 08/22/2023 HPV/Cotest 08/22/2023 08/21/2018 Influenza Vaccine (#1) 2025 , 04/18/2023, 03/27/2022, Additional history exists Mammogram 02/21/2025 02/22/2024, 07/12/2021, 01/07/2021, Additional history exists Colorectal Cancer Screening 03/08/2026 FIT-DNA 03/08/2026 03/08/2023 Procedures Procedure Name Priority Date/Time Associated Diagnosis Comments MM TOMOSYNTHESIS SCREENING BI 02/22/2024 1:49 PM EDT LAB COLOGUARD COLON CANCER SCREEN Routine 03/08/2023 8:13 AM EDT Screen for colon cancer Q - THINPREP(R) TIS W/RFL HPV MRNA E6/E7 Routine 08/21/2018 12:00 PM EST from Last 3 Months or Most Recently Relevant to Health Maintenance Results * MM TOMOSYNTHESIS SCREENING BI (02/22/2024 1:49 PM EDT) Anatomical Region Laterality Modality Other 02/22/2024 1:49 PM EDT Narrative 02/22/2024 1:50 [place] [address] Mammography Report Signed Patient: MARTHA RUIZ MR#: [id number] : 1975 Acct:[id number] Age/Sex: 48 / F ADM Date: 02/20/24 Loc: MAMMO Attending Dr: YISEL LOWRY Ordering Physician: YISEL LOWRY Results: Date of Service: 02/20/24 Follow Up: Procedure(s): MM tomosynthesis screening BI Accession Number(s): [id number] cc: YISEL LOWRY Patient Name: MARTHA RUIZ MR#: [id number] : 1975 Exam Date: 02/20/2024 Ordering Doctor: DR YISEL LOWRY RADIOLOGY REPORT PROCEDURE: MM TOMOSYNTHESIS SCREENING BI COMPARISON: MM TOMOSYNTHESIS SCREENING BI, 02/13/2023. MG MAMM SCREEN 3D EBOIN CAD, 01/11/2022. MG MAMM SCREEN 3D EBONI CAD, 01/07/2021. MG MAMM SCREEN EBONI W CAD, 10/20/2016. INDICATIONS: Screening for malignant neoplasm Calculator Name NCI Breast Cancer Risk Assessment Tool 5 Year Breast Cancer Risk 1.80% Lifetime Breast Cancer Risk 18.00% Personal Breast Cancer No Personal Ovarian Cancer No Treatments None Family Cancers Mother with breast cancer at age 68; Grandmother-maternal with uterine cancer at age 30; Grandmother-maternal with pancreas cancer at age 80; Father with lung cancer at age 68. LOCATION: [facility] BREAST COMPOSITION: The breasts are heterogeneously dense,which may obscure small masses. FINDINGS: DIAGNOSTIC CATEGORY 2--BENIGN FINDING: RIGHT BREAST: No significant suspicious finding. Scattered benign-appearing lymph nodes are present. No significant change has occurred. LEFT BREAST: No significant suspicious finding. No significant change has occurred. RECOMMENDATIONS: ROUTINE MAMMOGRAM AND CLINICAL EVALUATION IN 12 MONTHS. PLEASE NOTE: A NORMAL MAMMOGRAM DOES NOT EXCLUDE THE POSSIBILITY OF BREAST CANCER. A CLINICALLY SUSPICIOUS PALPABLE LUMP SHOULD BE BIOPSIED. Dictated by: Sunil Forte M.D. on 02/22/2024 at 13:46 Approved by: Sunil Forte M.D. on 02/22/2024 at 13:49 Dictated By: Sunil Forte M.D. Signed By: 02/22/24 1350 DD/ 1349 TD/TT: Bobbin Washer: Procedure Note Radiology, Radiologist, MD - 02/22/2024 [place] [address] Mammography Report Signed Patient: MARTHA RUIZ [facility]#: [id number] : 1975Acct:[id number] Age/Sex: 48 / FADM Date: 02/20/24 Loc: MAMMO Attending Dr: YISEL LOWRY Ordering Physician: YISEL LOWRY: Date of Service: 02/20/24Follow Up: Procedure(s): MM tomosynthesis screening BI Accession Number(s): [id number] cc: YISEL LOWRY Patient Name: MARTHA RUIZ MR#: [id number] : 1975 Exam Date: 02/20/2024 Ordering Doctor: DR YISEL LOWRY RADIOLOGY REPORT PROCEDURE: MM TOMOSYNTHESIS SCREENING BI COMPARISON: MM TOMOSYNTHESIS SCREENING BI, 02/13/2023. MG MAMM [id number] EBONI CAD, 01/11/2022. MG MAMM SCREEN 3D EBONI CAD, 01/07/2021. MG MAMM SCREENBIL W CAD, 10/20/2016. INDICATIONS: Screening for malignant neoplasm Calculator Name NCI Breast Cancer Risk Assessment Tool 5 Year Breast Cancer Risk 1.80% Lifetime Breast Cancer Risk 18.00% Personal Breast Cancer No Personal Ovarian Cancer No Treatments None Family Cancers Mother with breast cancer at age 68;Grandmother-maternal with uterine cancer at age 30; Grandmother-maternal with pancreas cancerat age 80; Father with lung cancer at age 68. LOCATION: [facility] BREAST COMPOSITION: The breasts are heterogeneously dense,which may obscure small masses. FINDINGS: DIAGNOSTIC CATEGORY 2--BENIGN FINDING: RIGHT BREAST: No significant suspicious finding. Scatteredbenign-appearing lymph nodes are present. No significant change has occurred. LEFT BREAST: No significant suspicious finding. No significant changehas occurred. RECOMMENDATIONS: ROUTINE MAMMOGRAM AND CLINICAL EVALUATION IN 12 MONTHS. PLEASE NOTE: A NORMAL MAMMOGRAM DOES NOT EXCLUDE THE POSSIBILITY OFBREAST CANCER. A CLINICALLY SUSPICIOUS PALPABLE LUMP SHOULD BE BIOPSIED. Dictated by: Sunil Forte M.D. on 02/22/2024 at 13:46 Approved by: Sunil Forte M.D. on 02/22/2024 at 13:49 Dictated By: Sunil Forte M.D. Signed By:02/22/24 1350 DD/ 1349 TD/TT: Bobbin Washer: Yisel Lowry MD [facility] Final Resul t * Cologuard?? colon cancer screening (03/08/2023 8:13 AM EDT) NONINV COLON CA DNA+OCC BLD SCRN STL-IMP Negative Negative 03/13/2023 5:59 PM EDT [facility] (CLIA #:[id number]) Comment: NEGATIVE TEST RESULT. A negative Cologuard result indicates a low likelihood that a colorectal cancer (CRC) or advanced adenoma (adenomatous polyps with more advanced pre-malignant features) is present. The chance that a person with a negative Cologuard test has a colorectal cancer is less than 1 in 1500 (negative predictive value >99.9%) or has an advanced adenoma is less than 5.3% (negative predictive value 94.7%). These data are based on a prospective cross-sectional study of 10,000 individuals at average risk for colorectal cancer who were screened with both Cologuard and colonoscopy. (Eloisa Mitchell. et al, N Engl J Med 2014;370(14):4365-3271) The normal value (reference range) for this assay is negative. COLOGUARD RE-SCREENING RECOMMENDATION: Periodic colorectal cancer screening is an important part of preventive healthcare for asymptomatic individuals at average risk for colorectal cancer. Following a negative Cologuard result, the [place] [employer] Society and U.S. Multi-Society Task Force screening guidelines recommend a Cologuard re-screening interval of 3 years. References: [place] [employer] Guideline for Colorectal Cancer Screening: https://www.cancer.org/cancer/ywejs-obprvs-tlpxpq/enyldgyxs-ucgvuldcm-vwhuubq/ac s-rec ommendations.html.; Alec WANG, Ezekiel HENRY, Jyoti BeckK, Colorectal Cancer Screening: Recommendations for Physicians and Patients from the U.S. Multi-Society Task Force on Colorectal Cancer Screening , Am J Gastroenterology 2017; 112:0322-1031. TEST DESCRIPTION: Composite algorithmic analysis of stool DNA-biomarkers with hemoglobin immunoassay. Quantitative values of individual biomarkers are not reportable and are not associated with individual biomarker result reference ranges. Cologuard is intended for colorectal cancer screening of adults of either sex, 45 years or older, who are at average-risk for colorectal cancer (CRC). Cologuard has been approved for use by the U.S. FDA. The performance of Cologuard was established in a cross sectional study of average-risk adults aged 50-84. Cologuard performance in patients ages 45 to 49 years was estimated by sub-group analysis of near-age groups. Colonoscopies performed for a positive result may find as the most clinically significant lesion: colorectal cancer [4.0%], advanced adenoma (including sessile serrated polyps greater than or equal to 1cm diameter) [20%] or non- advanced adenoma [31%]; or no colorectal neoplasia [45%]. These estimates are derived from a prospective cross-sectional screening study of 10,000 individuals at average risk for colorectal cancer who were screened with both Cologuard and colonoscopy. (Eloisa Mckeon et al, N Engl J Med 2014;370(14):9375-0331.) Cologuard may produce a false negative or false positive result (no colorectal cancer or precancerous polyp present at colonoscopy follow up). A negative Cologuard test result does not guarantee the absence of CRC or advanced adenoma (pre-cancer). The current Cologuard screening interval is every 3 years. ([place] [employer] and U.S. Multi-Society Task Force). Cologuard performance data in a 10,000 patient pivotal study using colonoscopy as the reference method can be accessed at the following location: www.MyOtherDrive/results. Additional description of the Cologuard test process, warnings and precautions can be found at www.[employer].ioogConnectbrightrd.com. Stool specimen (specimen) 03/08/2023 8:13 AM EDT 03/09/2023 3:27 PM EDT Nichole Dozier NP LAB MOLECULAR DIAGNOSTICS ORDERABLES Final Result [employer] [facility] (CLIA #:[id number]) [address] [address], [facility] (CLIA #:[id number]) [address] [address] * Q - THINPREP(R) TIS W/RFL HPV MRNA E6/E7 (08/21/2018 12:00 PM EST) CLINICAL INFORMATION negative [facility] 08/21/2018 12:0 0 PM EST Yisel Lowry MD [facility] Final Result [facility] from Last 3 Months or Most Recently Relevant to Health Maintenance Insurance [employer] Care Teams Career Guidance Counselor Relationship Specialty Start Date End Date Yisel Lowry MD PCP - General Family Medicine 11/15/22 Eladia Lazcano, [facility] [address] [place] [address] [employer] [facility] 07/01/24
--- OUTSIDE RECORDS SUMMARY | 2025-03-09 09:36 | XMS_ITS | Clinical Summary ---
Author Organization [facility] Address [address] [place] [address] Care Team Providers Care Pot Fireman Name Role Phone Yisel Armenta MD Primary Care Provider [phone] Lisa Guallpa RN Unavailable [phone] Allergies Active Allergy Reactions Criticality Noted Date Comments Penicillins 09/25/2006 vomiting and rash Medications ondansetron (ZOFRAN) 4 mg ORAL Tab Take one(1) tablet daily as needed for nausea. 0 05/07/2007 Active DULoxetine (CYMBALTA) 60 mg capsule Take 60 mg by mouth once daily. Active Almotriptan Malate (AXERT) 12.5 mg tablet Take 12.5 mg by mouth as needed. may repeat in 2 hours if needed Active atorvastatin (LIPITOR) 20 mg tablet Take 20 mg by mouth once daily. Active labetalol (TRANDATE) 100 mg tablet Take 100 mg by mouth twice daily. Active ergocalciferol, vitamin D2, (VITAMIN D) 50,000 unit capsule Take 50,000 Units by mouth once each week. Active HYDROcodone-Acet aminophen (NORCO) 10-325 mg per tablet Take 1 tablet by mouth every 6 hours as needed. Active topiramate (TROKENDI XR) 200 mg cp24 Take by mouth once daily. 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 Dizziness and giddiness 05/31/2007 Esophageal reflux 05/31/2007 Sleep disturbance, unspecified 05/31/2007 Unspecified sinusitis (chronic) 05/31/2007 Polyuria 05/31/2007 Resolved Problems Problem Noted Date Diagnosed Date Resolved Date Syncope and collapse 05/31/2007 016 Family History Medical History Relation Comments Coronary Artery Disease Father [place] age 4 5 Hypertension Father Diabetes Maternal Grandfather Hypertension Mother Relation Status Comments Father Maternal Grandfather Mother Social History Tobacco Use Types Packs/Day Years Used Date Smoking Tobacco: Never Alcohol Use Standard Drinks/Week Comments Yes 0 (1 standard drink = 0.6 oz pur e alcohol) 1-2 drinks/week Comments No Sex and Gender Information Value Date Recorded Sex Assigned at Not on file Legal Sex Female 8:06 AM EST Gender Identity Not on file Sexual Orientation Not on file Last Filed Vital Signs Vital Sign Reading Time Taken Comments Blood Pressure 141/101 04/29/2014 1:10 PM EST Pulse 82 04/29/2014 1:10 PM EST Temperature 37 C (98.6 F) 03/31/2014 2:08 PM EDT Respiratory Rate 16 04/29/2014 1:10 PM EST Oxygen Saturation 99% 04/29/2014 1:10 PM EST Inhaled Oxygen Concentration - - Weight 73.6 kg (162 lb 4.8 oz) 04/29/2014 1:10 P M EST Height 160 cm (5' 3 ) 04/29/2014 1:10 PM EST Body Mass Index 28.75 04/29/2014 1:10 PM EST Plan of Treatment Health Maintenance Due Date Last Done Comments Anxiety Screening 1994 Depression Screening 1994 HIV Screening 1994 DTaP,Tdap,Td Vaccine (1 - Tdap) 1995 Hepatitis B Vaccine (1 of 3 - 19+ 3-dose series) 1995 Cervical Cancer Screening [address] Colonography 2021 Cologuard (FIT-DNA) 2021 Colonoscopy 2021 Colorectal Cancer Screening 2021 Diabetes Screening 2021 03/31/2014, 09/25/2006 Fecal Occult Blood 2021 Sigmoidoscopy 2021 09/25/2006 Influenza Vaccine (#1) 2025 Lipid Screening 04/18/2028 04/18/2023 Hepatitis C Screening Completed 03/31/2014 Procedures Procedure Name Priority Date/Time Associated Diagnosis Comments HEP REMOTE PANEL BL Routine 03/31/2014 3 :41 PM EDT Limb pain HEMOGLOBIN A1C Routine 03/31/2014 3:41 PM EDT Limb pain SIGMOIDOSCOPY FLX DX W/COLLJ SPEC BR/WA IF PFRMD Routine 09/25/2006 9:58 AM EDT Noninfec Gastroenterit Nec Esophageal Reflux from Last 3 Months or Most Recently Relevant to Health Maintenance Results * HGB A1C (03/31/2014 3:41 PM EDT) Hemoglobin A1C 5.2 4.0 - 6.0 % [facility] Comment: [place] [employer] guidelines indicate that patients with HgbA1c in the range 5.7-6.4% are at increased risk for development of diabetes, and intervention by lifestyle modification may be beneficial. HgbA1c greater or equal to 6.5% is considered diagnostic of diabetes. Estimated Average Glucose 103 mg/dL [facility] Comment: eAG: (Estimated average glucose) is a calculated value from HgbA1c and is sales and marketing representative of the average blood glucose level in the last 2-3 month period. Blood specimen (specimen) BLOOD SPECIMEN / Unknown 03/31/2014 3:41 PM EDT 03/31/2014 3:43 PM EDT us Giovani Ribeiro MD LABORATORY Final Resul t [facility] [address] [place] [address] * (ABNORMAL) HEP REMOTE PANEL BL (03/31/2014 3:41 PM EDT) Hep B Core Ab, Total Negative NEGAT [facility] Hep C Antibody IA Negative NEGAT [facility] HBsAg Negative NEGAT [facility] Hep B Surface Ab, Qual Positive(A) NEGAT [facility] Comment: These results are consistent with previous exposure and/or immunity to the hepatitis B virus antigen. Blood specimen (specimen) BLOOD SPECIMEN / Unknown 03/31/2014 3:41 PM EDT 03/31/2014 3:43 PM EDT us Giovani Ribeiro MD LABORATORY Final Resul t [facility] [address] [place] [address] from Last 3 Months or Most Recently Relevant to Health Maintenance Insurance [employer] ACC[employer] PPO Care Teams Pot Fireman Relationship Specialty Start Date End Date Yisel Armenta MD PCP - General 10/01/09 Lisa Guallpa RN [address] [facility] [place] [address] Referring Family Medicine 04/02/23
--- OUTSIDE RECORDS SUMMARY | 2025-03-09 09:36 | XMS_ITS | Encounter Summary ---
Author Organization [facility] Address [address] [place] [address] Care Team Providers Care Mold Shifter Name Role Phone Yisel Armenta MD Primary Care Provider Nichole Dozier FANCY STITCHER Unavailable Lisa Guallpa FANCY STITCHER Unavailable Eladia Lazcano [facility] Unavailable Encounter Details Date Type Department Care Team (Late st Contact Info) Description 01/31/2023 Abstract [facility] [place] [facility] [address] [facility] [address] [place] [address] Surinder Ledbetter MD [address] [facility] [address] [place] [address] Social History Tobacco Use Types Packs/Day Years [...] suspected to have Coronavirus/COVID-19? No / Unsure 01/30/2023 10:19 PM EDT documented as of this encounter Plan of Treatment Upcoming Encounters Date Type Department Care Team (Late st Contact Info) Description 05/01/2025 9:00 AM EST Office Visit [facility] [address] [place] [id number] Sincere Hinson MD [address] [facility] [address] [place] [address] [phone] documented as of this encounter Visit Diagnoses Not on filedocumented in this encounter Care Teams Mold Shifter Relationship Specialty Start Date End Date Yisel Armenta MD PCP - General Family Medicine 11/15/22 Nichole Dozier NP [address] [place] [address] PCP - [place] [employer] 01/16/2305/17 Lisa Guallpa NP [address] [place] [address] PCP - [place] [employer] 05/18/2306/17 Eladia Lazcano [facility] [address] [place] [address] [employer] Music Therapist Behavioral Health 07/01/24 documented as of this encounter
--- OUTSIDE RECORDS SUMMARY | 2025-03-09 09:36 | XMS_ITS | Clinical Summary ---
Author Organization [facility] Address [address] [id number] Phone Care Team Providers Care Vice President Of Recruiting Name Role Phone Unavailable Primary Care Provider Unavailabl e Social History Tobacco Use Types Packs/Day Years Used Date Smoking Tobacco: Never Assessed Comments Unknown Sex and Gender Information Value Date Recorded Sex Assigned at Not on file Legal Sex Female 1:08 PM EST Gender Identity Not on file Sexual Orientation Not on file Plan of Treatment Not on file
--- OUTSIDE RECORDS SUMMARY | 2025-03-09 09:36 | XMS_ITS | Encounter Summary ---
Author Organization [facility] Address [address] [place] [address] Care Team Providers Care Hospitality Coordinator Name Role Phone Darcie Lowry MD Primary Care Provider [phone] Lisa Guallpa MUSIC VIDEO DIRECTOR Unavailable [phone] Eladia Lazcano [facility] Unavailable [phone] Encounter Details Date Type Department Care Team (Late st Contact Info) Description 02/22/2024 Clinisync Result Encounter [facility] External Department Unsolicited Darcie Lowry MD Social History Tobacco Use Types Packs/Day Years [...] often do you attend chur ch or yazidi services? More than 4 times per year 04/18/2023 Do you belong to any clubs o r organizations such as advent groups, unions, fraternal or athletic groups, or [...] and heating? Not hard at all 04/18/2023 [facility] - Occupational Stress Questionnaire Answer Date Recorded [...] place to sleep or slept in a [place] facility (including now)? No 04/18/2023 Comments Unknown Sex [...] [facility] [address] [facility] [address] [place] [address] Sincere Hinson MD [address] [facility] [address] [place] [address] [phone] documented as of this encounter Procedures Procedure Name Priority Date/Time Associated Diagnosis Comments MM TOMOSYNTHESIS SCREENING BI 02/22/2024 1:49 PM EDT documented in this encounter Results * MM TOMOSYNTHESIS SCREENING BI (02/22/2024 1:49 PM EDT) Anatomical Region Laterality Modality Other 02/22/2024 1:49 PM EDT Narrative 02/22/2024 1:50 [place] [address] Mammography Report Signed Patient: ELIDA RUIZ MR#: [id number] : 1975 Acct:[id number] Age/Sex: 48 / F ADM Date: 02/20/24 Loc: MAMMO Attending Dr: DARCIE LOWRY Ordering Physician: DARCIE LOWRY Results: Date of Service: 02/20/24 Follow Up: Procedure(s): MM tomosynthesis screening BI Accession Number(s): [id number] cc: DARCIE LOWRY Patient Name: ELIDA RUIZ MR#: [id number] : 1975 Exam Date: 02/20/2024 Ordering Doctor: DR DARCIE Forte. [facility] REPORT PROCEDURE: MM TOMOSYNTHESIS SCREENING BI COMPARISON: MM TOMOSYNTHESIS SCREENING BI, 02/13/2023. MG MAMM SCREEN 3D EBONI CAD, 01/11/2022. MG MAMM SCREEN 3D [...] lung cancer at age 69. LOCATION: [facility] BREAST COMPOSITION: The breasts are heterogeneously dense,which [...] By: Sunil Forte M.D. Signed By: 02/22/24 1357 DD/ 1349 TD/TT: Kitchen Aide: Procedure Note Radiology, Radiologist, MD - 02/22/2024 [place] [address] Mammography Report Signed Patient: ELIDA RUIZ DMR#: [id number] : 1975Acct:[id number] Age/Sex: 48 / FADM Date: 02/20/24 Loc: MAMMO Attending Dr: DARCIE LOWRY Ordering Physician: DARCIE LOWRY: Date of Service: 02/20/24Follow Up: Procedure(s): MM tomosynthesis screening BI Accession Number(s): [id number] cc: DARCIE LOWRY Patient Name: ELIDA RUIZ MR#: [id number] : 1975 Exam Date: 02/20/2024 Ordering Doctor: DR DARCIE LOWRY RADIOLOGY REPORT PROCEDURE: MM TOMOSYNTHESIS SCREENING BI COMPARISON: MM TOMOSYNTHESIS SCREENING BI, 02/13/2023. MG MAMM [id number] EBONI CAD, 01/11/2022. MG MAMM SCREEN 3D [...] lung cancer at age 69. LOCATION: [facility] BREAST COMPOSITION: The breasts are heterogeneously dense,which [...] M.D. Signed By:02/22/24 1350 DD/ 1349 TD/TT: Kitchen Aide: Darcie Lowry MD [facility] Final Resul t documented in this encounter Visit Diagnoses Not on filedocumented in this encounter Care Teams Hospitality Coordinator Relationship Specialty Start Date End Date Darcie Lowry MD PCP - General Family Medicine 11/15/22 Lisa Guallpa MUSIC VIDEO DIRECTOR [address] [address] PCP - [place] [employer] 05/18/2306/17 Eladia Lazcano, [facility] [address] [facility] [address] [place] [address] Oncology Admin Behavioral Health 07/01/24 documented as of this encounter
--- NOTE | 2025-03-09 09:38 | MM_ITS ---
Patient Name: MARTHA INIGUEZ MR#: [id number] : 1975 Exam Date: 03/09/2025 Ordering Doctor: AFSHIN ZEPEDA RADIOLOGY REPORT PROCEDURE: MM TOMOSYNTHESIS SCREENING BI COMPARISON: MM TOMOSYNTHESIS SCREENING BI, 02/20/2024. MM TOMOSYNTHESIS SCREENING BI, 02/13/2023. MG MAMM SCREEN 3D EBONI CAD, 01/11/2022. MG MAMM SCREEN EBONI W CAD, 10/20/2016. INDICATIONS: Screening Calculator Name NCI Breast Cancer Risk Assessment Tool 5 Year Breast Cancer Risk 1.80% Lifetime Breast Cancer Risk 17.80% Personal Breast Cancer No Personal Ovarian Cancer No Treatments None Family Cancers Mother with breast cancer at age 68; Grandmother-maternal with uterine cancer at age ~30; Grandmother-maternal with pancreas cancer at age 80; Father with lung cancer at age 68. LOCATION: [facility] BREAST COMPOSITION: There are scattered areas of fibroglandular density. FINDINGS: DIAGNOSTIC CATEGORY 1--NEGATIVE. RIGHT BREAST: No significant suspicious finding. LEFT BREAST: No significant suspicious finding. RECOMMENDATIONS: ROUTINE MAMMOGRAM AND CLINICAL EVALUATION IN 12 MONTHS. Dictated by: Kevin Rebollar DO on 03/10/2025 at 15:18 Approved by: Kevin Rebollar DO on 03/10/2025 at 15:19
--- OUTSIDE RECORDS SUMMARY | 2025-03-09 09:38 | XMS_ITS | CCD ---
Author Organization [facility] Care Team Providers Care Scratch Polisher Name Role Phone ZayLnea Nidia Unavailable UnavailJocelyne Deng Unavailable Unavailable UNKNOWN, PCP Unavailable Unavailable Yisel Lowry Primary Care Provider Jovani Berry Primary Care Provider Jovani Mulligan Unavailable JEREL CHI Attending Unavailable JEREL CHI Admitting Unavailable YISEL LOWRY Referring Unavailable YISEL LOWRY Primary Care Unavailable Kris Membreno Unavailable Maddy Rome Unavailable DR YISEL LOWRY Primary Care Unavailable BEN, DR TERRI Saini Consulting Unavailable KRISTEN MDARIGAL Attending Unavailable KRISTEN MADRIGAL Admitting Unavailable DR YISEL LOWRY Consulting Unavailable Yisel Lowry Primary Care Unavailable Maryse Hinson Attending Unavailable Maryse Hinson Admitting Unavailable Kris Membreno Attending Unavailable Kris Membreno Admitting Unavailable Yisel Lowry Primary Care Unavailable Sydni Roberto Unavailable Brice Brito Unavailable Yisel Lowry MD Primary Care Provider Lisa Guallpa NP Unavailable YISEL LOWRY Referring Unavailable YISEL LOWRY Primary Care Unavailable ESVIN VILLALPANDO Attending Unavailable YISEL LOWRY Referring Unavailable YISEL LOWRY Primary Care Unavailable Lisa Guallpa NP Unavailable Yisel Lowry MD Primary Care Provider Yisel Lowry MD Primary Care Provider Neno [facility], Yanna L Unavailable WonderYisel tamez MD Primary Care Provider JOCELYNE PALAFOX Referring Unavailable JEREL CHI Attending Unavailable JOCELYNE PALAFOX Attending Unavailable VERHOFF, MAURICIO N Attending Unavailable WONDERLY, YISEL B Referring Unavailable WONDERLY, YISEL B Primary Care Unavailable CABRALES, PJ E Attending Unavailable CABRALES, PJ E Referring Unavailable WONDERLY, YISEL B Primary Care Unavailable VERHOFF, MAURICIO N Attending Unavailable WONDERLY, YISEL B Referring Unavailable WONDERLY, YISEL B Primary Care Unavailable CABRALES, PJ E Attending Unavailable CABRALES, PJ E Referring Unavailable WONDERLY, YISEL B Primary Care Unavailable CABRALES, PJ E Admitting Unavailable CABRALES, PJ E Attending Unavailable WONDERLY, YISEL B Referring Unavailable WONDERLY, YISEL B Primary Care Unavailable CABRALES, PJ E Admitting Unavailable CABRALES, PJ E Attending Unavailable WONDERLY, YISEL B Referring Unavailable WONDERLY, YISEL B Primary Care Unavailable VERHOFF, MAURICIO N Attending Unavailable WONDERLY, YISEL B Referring Unavailable WONDERLY, YISEL B Primary Care Unavailable CABRALES, PJ E Admitting Unavailable CABRALES, PJ E Attending Unavailable WONDERLY, YISEL B Referring Unavailable WONDERLY, YISEL B Primary Care Unavailable CABRALES, PJ E Attending Unavailable CABRALES, PJ E Referring Unavailable WONDERLY, YISEL B Primary Care Unavailable VERHOFF, MAURICIO N Attending Unavailable WONDERLY, YISEL B Referring Unavailable WONDERLY, YISEL B Primary Care Unavailable CABRALES, PJ E Admitting Unavailable CABRALES, PJ E Attending Unavailable WONDERLY, YISEL B Referring Unavailable WONDERLY, YISEL B Primary Care Unavailable VERHOFF, MAURICIO N Referring Unavailable WONDERLY, YISEL B Primary Care Unavailable CABRALES, PJ E Admitting Unavailable CABRALES, PJ E Attending Unavailable WONDERLY, YISEL B Referring Unavailable WONDERLY, YISEL B Primary Care Unavailable CABRALES, PJ E Attending Unavailable CABRALES, PJ E Referring Unavailable WONDERLY, YIESL B Primary Care Unavailable VERHOFF, MAURICIO N Referring Unavailable WONDERLY, YISEL B Primary Care Unavailable VERHOFF, MAURICIO N Attending Unavailable WONDERLY, YISEL B Referring Unavailable WONDERLY, YISEL B Primary Care Unavailable CABRALES, PJ E Attending Unavailable CABRALES, PJ E Referring Unavailable WONDERLY, YISEL B Primary Care Unavailable WonderYisel tamez MD Primary Care Provider HINSON, MARYSE W Attending Unavailable LAZCANO, YANNA L Attending Unavailable LAZCANO, YANNA L Attending Unavailable LAZCANO, YANNA L Attending Unavailable HINSON, MARYSE W Attending Unavailable LAZCANO, YANNA L Attending Unavailable LAZCANO, YANNA L Attending Unavailable HINSON, MARYSE W Attending Unavailable LAZCANO, YANNA L Attending Unavailable HINSON, MARYSE W Attending Unavailable WONDERLY, YISEL B Attending Unavailable WONDERLY, YISEL B Referring Unavailable RUSHER, THAD S Attending Unavailable WONDERLY, YISEL B Referring Unavailable RUSHER, THAD S Referring Unavailable LAZCANO, YANNA L Attending Unavailable PUMP, MARIBEL Attending Unavailable RUSHER, THAD S Attending Unavailable LAZCANO, YANNA L Attending Unavailable LAZCANO, YANNA L Attending Unavailable Allergies Allergy Classification Reported Allergen(s) Allergy Type Date of Onset Reaction(s) Facility (20 sources) Penicillins; Translations: [PENICILLINS] Propensity to adverse reactions 09-26-19 07 Hives, Rash, Nausea And Vomiting [facility] (2 sources) Sulfamethoxazole / Trimethoprim Drug Allergy 07-16-19 13 [facility] (4 sources) Penicillin V Drug Allergy vomiting [employer] [facility] [employer] Other (20 sources) Sulfamethoxazole / Trimethoprim Drug Allergy 06-05-20 14 Rash, Nausea And Vomiting [facility] Other (6 sources) Penicillin Drug Allergy vomiting [facility] [employer] Other (20 sources) Cephalosporins (Antibiotic); Translations: [CEPHALOSPORINS] Drug Allergy 06-23-19 [facility] (3 sources) Sulfamethoxazole / Trimethoprim; Translations: [SULFAMETHOXAZOLE-T RIMETHOPRIM] Drug Allergy 06-05-20 14 [facility] (5 sources) Cephalosporins (Antibiotic) Propensity to adverse reactions to drug 06-29-19 22 [facility] Medications Current Medications Medication Drug Class(es) Dates Sig (Normalized) Sig (Original) acetaminophen 500 mg oral tablet (10 sources) take 2 tablets by mouth every six hours Acetaminophen 500 MG 2 tablets as needed Orally every 6 hrs Active Aimovig 140 MG/ML (4 sources) Aimovig 140 MG/M L as directed Subcutaneous Active [id number] 200 actuat albuterol 0.09 mg/actuat metered dose inhaler (20 sources) beta2-Adrenergic Agonist Start: 05-28-2024 take 2 puff(s) by inhalation every four hours for wheezing albuterol HFA 90 mcg/act inhaler Indications: Other cough , Chest tightness Inhale 2 puffs every 4 (four) hours if needed for wheezing for up to 10 days 18 g 11/13/2023 Active take 2 puff(s) by in halation every six hours as needed albuterol (PROVENTIL HFA;VENTOLIN HFA) 9 0 mcg/actuation inhaler Inhale 2 puffs every 6 (six) hours as needed. Active Albuterol Sulfate 108 (90 Base) MCG/ACT (10 sources) take 1 puff(s) by inhalation every four hours as needed Albuterol Sulfate 108 (90 Base) MCG/ACT 1 puff as needed Inhalation every 4 hrs Active 24 hr amphetamine aspartate 5 mg / amphetamine sulfate 5 mg / dextroamphetamine saccharate 5 mg / dextroamphetamine sulfate 5 mg extended release oral capsule (20 sources) Central Nervous System Stimulant Start: End: take 1 capsule by mouth every twenty-four hours in the morning amphetamine-dextroam phetamine XR (Adderall XR) 10 MG 24 hr capsule Indications: POTS (postural orthostatic tachycardia syndrome) , ADHD, predominantly inattentive type Take 1 capsule (10 mg) by mouth in the morning. Do not crush or chew. 90 capsule 10/13/2024 01/29/2025 Discontinued (Therapy completed) Start: 01-27-2024 End: 04-26-2024 take 1 capsule by mouth every twenty-four hours in the morning amphetamine-dextroamphetamine XR (Addera ll XR) 10 MG 24 hr capsule Indications: POTS (postural orthostatic tachycardia syndrome) , ADHD, predominantly inattentive type (CMS/HCC) Take 1 capsule (10 mg) by mouth in the morning. Do not crush or chew.. 90 capsule 01/27/2024 Active Start: 04-23-2023 take 1 capsule by mo uth every twenty-four hours in the morning amphetamine-dextroamphetamine XR (Addera ll XR) 10 MG 24 hr capsule Indications: POTS (postural orthostatic tachycardia syndrome) , ADHD, predominantly inattentive type (CMS/HCC) Take 1 capsule (10 mg) by mouth in the morning. Do not crush or chew.. 90 capsule 0 04/23/2023 Active Start: 03-22-2021 End: 03-13-2025 take 1 capsule by mouth every twenty-four hours in the morning amphetamine-dextroamphetamine XR (Addera ll XR) 20 MG 24 hr capsule Indications: ADHD, predominantly inattentive type Take 1 capsule (20 mg) by mouth in the morning. Do not crush or chew. 90 capsule 02/11/2025 03/13/2025 Active take 1 tablet by cortez th every twelve hours Adderall 20 MG 1 tablet Orally Twice a d ay Active atorvastatin 20 mg oral tablet (20 sources) HMG-CoA Reductase Inhibitor Start: 01-08-2025 take 1 tablet by mouth at bedtime atorvastatin (Lipitor) 20 MG tablet Indications: Dyslipidemia Take 1 tablet (20 mg) by mouth at bedtime 90 tablet 1 01/08/2025 Active Start: 01-05-2023 atorvastatin ( Lipitor) 20 MG tablet Indications: Dyslipidemia (CMS/HCC) TAKE 1 TABLET AT BEDTIME 90 tablet 3 12/31/2023 Active 24 hr buPROPion hydrochloride 150 mg extended release oral tablet (20 sources) Aminoketone Start: 01-29-2025 End: 04-29-2025 take 1 tablet by mouth once daily buPROPion XL (Wellbutrin XL) 150 MG 24 hr tablet Indications: POTS (postural orthostatic tachycardia syndrome) Take 1 tablet (150 mg) by mouth Daily Do not crush, chew, or split. 90 tablet 3 01/29/2025 04/29/2025 Active Start: 10-26-2024 End: 01-29-2025 take 1 tablet by mouth once daily buPROPion (Wellbutrin) 75 MG tablet Indications: POTS (postural orthostatic tachycardia syndrome) Take 1 tablet (75 mg) by mouth Daily 30 tablet 10/26/2024 01/29/2025 Discontinued (Therapy completed) Start: 07-28-2024 End: 10-22-2024 take 1 tablet by mouth every twenty-four hours in the morning buPROPion XL (Wellbutrin XL) 300 MG 24 hr tablet Indications: ADHD, predominantly inattentive type (CMS/HCC) , POTS (postural orthostatic tachycardia syndrome) Take 1 tablet (300 mg) by mouth in the morning. Do not crush, chew, or split.. 30 tablet 11 08/07/2024 10/22/2024 Discontinued cholecalciferol 0.125 mg oral capsule (20 sources) Vitamin D take 1 capsule by mouth once daily, then take 1 capsule by mouth once daily cholecalciferol (Vitamin D-3) 125 MCG (5000 UT) capsule Indications: Vitamin D Deficiency Take 20,000 Units by mouth Daily Pt is taking 20,000 IU qd Active take 1 tablet by mouth in the mo rning cholecalciferol, vitamin D3, 5,000 units tablet Take 1 tablet (5,000 Units total) by mouth in the morning. Active take 2 tablets by mo uth once in the morning cholecalciferol (Vitamin D-3) 50 MCG (20 00 UT) tablet Indications: Vitamin D Deficiency Take 2,000 Units by mouth in the morning. Taking 2 tabs . Active take 2 capsules by m outh every twenty-four hours Vitamin D3 50 MCG (2000 UT) 2 capsules O rally Once a day Active DULoxetine 30 mg delayed release oral capsule (20 sources) Serotonin and Norepinephrine Reuptake Inhibitor Start: 04-25-2023 End: 03-31-2024 DULoxetine (Cymbalta) [address] capsule Indications: Anxiety , Other chronic pain , POTS (postural orthostatic tachycardia syndrome) TAKE 3 CAPSULES DAILY 270 capsule 3 03/31/2024 Active DULoxetine (CYMB CORRINE) 60 mg capsule Take 90 mg by mouth nightly. Active 1 ml erenumab-aooe 140 mg/ml auto-injector (20 sources) erenumab (Aimovi g) 140 MG/ML injection Inject 140 mg under the skin every 28 (twenty-eight) days. Active erenumab-aooe 14 0 mg/mL auto-injector Indications: migraine prevention Inject 140 mg under the skin every 28 days Indications: migraine prevention. Active 30 actuat fluticasone furoate 0.2 mg/actuat / vilanterol 0.025 mg/actuat dry powder inhaler (14 sources) Corticosteroid, beta2-Adrenergic Agonist Start: 04-19-2022 take 1 dose by inhalation once daily BREO ELLIPTA 200-25 mcg/dose blister with device Indications: Mild persistent asthma without complication USE 1 INHALATION DAILY 240 each 3 04/19/2022 Active take 1 puff(s) by inhalation onc e daily BREO ELLIPTA 200/25 mcg 1 puff Inhalation daily Active gabapentin 300 mg oral capsule (20 sources) Anti-epileptic Agent Start: 01-27-2024 End: 04-29-2025 take 1 capsule by mouth in the morning, then take 1 capsule by mouth in the evening, then take 1 capsule by mouth at bedtime gabapentin (Neurontin) 300 MG capsule Indications: POTS (postural orthostatic tachycardia syndrome) , Lumbar radiculopathy , Small fiber neuropathy Take 1 capsule (300 mg) by mouth in the morning and 1 capsule (300 mg) in the evening and 1 capsule (300 mg) before bedtime. 270 capsule 01/29/2025 04/29/2025 Active take 1 tablet by cortez th every twenty-four hours Gralise 600 MG 1 tablet Orally Once a day Active glycopyrrolate 1 mg oral tablet (10 sources) take 1 tablet by mouth every twenty-four hours Glycopyrrolate 1 MG 1 tablet Orally Once a day Active hydrocortisone 10 mg/ml / neomycin 3.5 mg/ml / polymyxin [id number] unt/ml otic suspension (10 sources) Aminoglycoside Antibacterial, Polymyxin-class Antibacterial, Corticosteroid [id number] C [id number] 4 drops into affected ear Otic Three times a day Active meclizine hydrochloride 25 mg chewable tablet (10 sources) Antiemetic take 1 tablet by mouth every twenty-four hours Meclizine HCl 25 MG 1 tablet as needed Orally Once a day Active meloxicam 15 mg oral tablet (12 sources) Nonsteroidal Anti-inflammatory Drug Start: 2023 End: 2023 take 1 tablet by mouth in the morning meloxicam (MOBIC) 15 mg tablet Take 1 tablet (15 mg total) by mouth in the morning. 30 tablet 1 03/12/2024 04/30/2024 Discontinued take 1 tablet by cortez th every twenty-four hours Meloxicam 15 MG 1 tablet Orally Once a d ay Not-Taking/PRN Multivitamin preparation (10 sources) take 1 tablet by mouth once daily Multivitamin - 1 tablet Orally Once a day Active Naltrexone (3 sources) Opioid Antagonist End: take 1.5 mg by mouth in the morning naltrexone HCl (NALTREXONE ORAL) Take 1.5 mg by mouth in the morning. 04/30/2024 Discontinued take 1.5 mg by mouth in the morn ing naltrexone HCl (NALTREXONE ORAL) Take 1.5 mg by mouth in the morning. Active take 1.5 mg by mouth in the morn ing naltrexone HCl (NALTREXONE ORAL) Take 1.5 mg by mouth in the morning. 0 Active naproxen 250 mg oral tablet (20 sources) Nonsteroidal Anti-inflammatory Drug naproxen (Naprosyn) 250 MG tablet 500 mg in the morning and 500 mg in the evening. Take with meals. Active End: 03-12-2024 take 2 tablets by mouth at bedtime naproxen sodium (ALEVE ORAL) Take 2 tablets by mouth in the morning and at bedtime. 03/12/2024 Discontinued take 2 tablets by mo ut at bedtime naproxen sodium (ALEVE ORAL) Take 2 tablets by mouth in the morning and at bedtime. 0 Active take 1 tablet by cortez th every twelve hours Naproxen 250 MG 1 tablet with food or milk Orally Twice a day Active nebivolol 20 mg oral tablet (20 sources) take 1 tablet by cortez th once daily nebivolol (Bystolic) 20 MG tablet Indications: Hypertension Take 20 mg by mouth Daily Active take 1 tablet by mouth at bedtim e nebivolol (BYSTOLIC) 10 mg tablet Take 1 tablet (10 mg total) by mouth in the morning and at bedtime. Active Normal saline (10 sources) Saline 0.9 % as directed intravenously Weekly Active omeprazole 40 mg delayed release oral capsule (10 sources) Proton Pump Inhibitor take 1 capsule by mouth once daily Omeprazole 40 MG 1 capsule 30 minutes before morning meal Orally Once a day Active ondansetron 4 mg oral tablet (10 sources) Serotonin-3 Receptor Antagonist take 1 tablet by mouth every eight hours as needed Zofran 4 MG 1 tablet as needed Orally every 8 hours Active ramelteon 8 mg oral tablet (12 sources) Melatonin Receptor Agonist Start: 10-27-19 End: 10-27-19 26 take 1 tablet by mouth at bedtime ramelteon (Rozerem) 8 MG tablet Indications: Primary insomnia Take 1 tablet (8 mg) by mouth at bedtime 30 tablet 11 10/26/2024 10/26/2025 Active rimegepant 75 mg disintegrating oral tablet (10 sources) Nurtec 75 MG 1 t ablet on the tongue and allow to dissolve Orally Active tiZANidine 2 mg oral tablet (10 sources) Central alpha-2 Adrenergic Agonist take 0.5-1 tablets by mouth three times daily as needed tiZANidine HCl 2 MG 1/2-1 tablet as needed Orally Three times a day Active 24 hr topiramate 200 mg extended release oral capsule (20 sources) Start: 06-30-19 Trokendi XR 200 MG capsule sustained-release 24 hr Indications: Migraine without aura and without status migrainosus, not intractable TAKE 1 CAPSULE AT BEDTIME 90 capsule 3 06/30/2024 Active Start: 07-04-2023 Trokendi XR 20 0 MG capsule sustained-release 24 hr Indications: Migraine without aura and without status migrainosus, not intractable (CMS/HCC) TAKE 1 CAPSULE AT BEDTIME 90 capsule 3 07/04/2023 Active take 1 capsule by nj ut once daily topiramate 200 mg capsule,extended release 24hr Take 200 mg by mouth nightly. Active traMADol hydrochloride 50 mg oral tablet (12 sources) Opioid Agonist Start: 02-29-2024 End: 03-14-2024 take 1 tablet by mouth every six hours for pain traMADol (Ultram) 50 MG tablet Indications: Lumbar radiculopathy , Foraminal stenosis of lumbar region , Lumbosacral spondylosis without myelopathy , Acute left-sided low back pain with left-sided sciatica Take 1 tablet (50 mg) by mouth every 6 (six) hours if needed for severe pain for up to 10 days 40 tablet 03/04/2024 03/14/2024 Active Completed/Discontinued Medications Medication Drug Class(es) Dates Sig (Normalized) Sig (Original) doxycycline hyclate 100 mg oral capsule (10 sources) Tetracycline-clas s Drug take 1 capsule by mouth every twelve hours Doxycycline Hyclate 100 MG 1 capsule Orally Twice a day Not-Taking/PRN lidocaine 0.05 mg/mg medicated patch (20 sources) Antiarrhythmic, Amide Local Anesthetic Start: 04-12-2023 End: 05-05-2024 lidocaine (Lidoderm) 5 % patch 04/12/2023 05/05/2024 Discontinued (Therapy completed) Start: 04-12-2023 Lidocaine 5 % 1 patch remove after 12 hours Externally Once a day for Mar, Active methylPREDNISolone (8 sources) Corticosteroid Start: 03-25-2024 End: 05-05-2024 methylPREDNISolone (Medrol Dospak) 4 MG tablets Indications: Left foot pain Take as directed on package. 21 tablet 03/25/2024 05/05/2024 Discontinued (Therapy completed) Start: 03-25-2024 methylPREDNISo lone (Medrol Dospak) 4 MG tablets Indications: Left foot pain Take as directed on package. 21 tablet 03/25/2024 Active nabumetone 750 mg oral tablet (10 sources) Nonsteroidal Anti-inflammatory Drug take 1 tablet by mouth every twelve hours Nabumetone 750 MG 1 tablet Orally Twice a day Not-Taking/PRN Problems Active Problems Problem Classification Problem Date Documented Da te Episodic/Chronic Anxiety disorders (20 sources) Anxiety; Translations: [Anxiety disorder, unspecified] Onset: 5 11-15-2022 Chronic Asthma (20 sources) Uncomplicated mild persistent asthma; Translations: [Mild persistent asthma, uncomplicated] Onset: 1 11-15-2022 Chronic Cardiac dysrhythmias (20 sources) Postural orthostatic tachycardia syndrome ; Translations: [POTS (postural orthostatic tachycardia syndrome)] Onset: 1 11-15-2022 Chronic Deficiency and other anemia (2 sources) Iron deficiency anemia secondary to inadequate dietary iron intake; Translations: [Other iron deficiency anemias] 05-05-2024 Episodic Disorders of lipid metabolism (20 sources) Dyslipidemia; Translations: [Hyperlipidemia, unspecified] Onset: 5 11-15-2022 Chronic Disorders usually diagnosed in infancy, childhood, or adolescence (20 sources) Attention deficit hyperactivity disorder, predominantly inattentive type; Translations: [Other specified behavioral and emotional disorders with onset usually occurring in childhood and adolescence] Onset: 1 11-15-2022 Chronic Esophageal disorders (20 sources) Gastroesophageal reflux disease; Translations: [Gastro-esophageal reflux disease with esophagitis] Onset: 7 05-31-2007 Chronic Essential hypertension (20 sources) Essential hypertension; Translations: [Essential (primary) hypertension] Onset: 4 11-15-2022 Chronic Fracture of lower limb (4 sources) Stress fracture of left foot; Translations: [Stress fracture, left foot, initial encounter for fracture] 03-25-2024 Episodic Genitourinary symptoms and ill-defined conditions (2 sources) Incontinence; Translations: [Unspecified urinary incontinence] 03-03-2024 Chronic Headache; including migraine (20 sources) Migraine with aura; Translations: [Migraine] Onset: 1 04-29-2014 Chronic Immunizations and screening for infectious disease (2 sources) Vaccination needed; Translations: [Encounter for immunization] 03-03-2024 Episodic Joint disorders and dislocations; trauma-related (20 sources) Chondromalacia of right patella; Translations: [Chondromalacia patellae, right knee] Onset: 7 Resolved: 4 11-15-2022 Chronic Malaise and fatigue (20 sources) Chronic fatigue syndrome; Translations: [Chronic fatigue syndrome] Onset: 5 11-15-2022 Chronic Malaise and fatigue (2 sources) Fatigue; Translations: [Other fatigue] 03-03-2024 Episodic Miscellaneous mental health disorders (2 sources) Primary insomnia; Translations: [Primary insomnia] 10-22-2024 Chronic Mood disorders (20 sources) Depressive disorder; Translations: [Depressive disorder] Onset: 5 11-15-2022 Chronic Nutritional deficiencies (20 sources) Vitamin D deficiency; Translations: [Vitamin D deficiency, unspecified] Onset: 5 11-15-2022 Chronic Osteoarthritis (20 sources) Osteoarthritis of knee; Translations: [Unilateral primary osteoarthritis, right knee] Onset: 1 Resolved: 2 Chronic Other acquired deformities (4 sources) Equinus contracture of the ankle; Translations: [Contracture, left ankle] 03-25-2024 Chronic Other and ill-defined heart disease (20 sources) Hyperkinetic heart disease; Translations: [Other ill-defined heart diseases] Onset: 8 07-10-2007 Chronic Other connective tissue disease (6 sources) Pain in left foot; Translations: [Pain in left foot] 03-25-2024 Episodic Other ear and sense organ disorders (20 sources) Hearing loss of left ear; Translations: [Unspecified hearing loss, left ear] Onset: 3 11-15-2022 Chronic Other gastrointestinal disorders (20 sources) Irritable bowel syndrome; Translations: [Irritable bowel syndrome without diarrhea] Onset: 1 11-15-2022 Chronic Other gastrointestinal disorders (2 sources) Irritable bowel syndrome with diarrhea; Translations: [Irritable bowel syndrome with diarrhea] 05-05-2024 Chronic Other hereditary and degenerative nervous system conditions (20 sources) Extrapyramidal disease; Translations: [Extrapyramidal and movement disorder, unspecified] Onset: 3 11-15-2022 Chronic Other hereditary and degenerative nervous system conditions (20 sources) Extrapyramidal movements; Translations: [Extrapyramidal and movement disorder, unspecified] Onset: 5 11-15-2022 Chronic Other hereditary and degenerative nervous system conditions (20 sources) Restless legs; Translations: [Restless legs syndrome] Onset: 5 11-15-2022 Chronic Other nervous system disorders (20 sources) Chronic pain; Translations: [Other chronic pain] Onset: 6 11-15-2022 Chronic Other nervous system disorders (4 sources) Other chronic pain; Translations: [Chronic pain] Onset: 2 Resolved: 2 Chronic Other nervous system disorders (20 sources) Neuropathy; Translations: [Polyneuropathy, unspecified] Onset: 9 11-15-2022 Chronic Other nervous system disorders (5 sources) Polyneuropathy; Translations: [Polyneuropathy, unspecified] Onset: 1 01-02-2023 Chronic Other nervous system disorders (20 sources) Small fiber neuropathy; Translations: [Polyneuropathy, unspecified] Onset: 1 02-29-2024 Chronic Other nervous system disorders (2 sources) Difficulty walking; Translations: [Difficulty in walking, not elsewhere classified] 03-25-2024 Chronic Other nervous system disorders (2 sources) Chronic pain syndrome; Translations: [Chronic pain syndrome] 05-05-2024 Chronic Other non-traumatic joint disorders (2 sources) Instability of joint of left ankle; Translations: [Other instability, left ankle] 03-25-2024 Episodic Other nutritional; endocrine; and metabolic disorders (6 sources) Body mass index 30+ - obesity; Translations: [Obesity, unspecified] Chronic Other nutritional; endocrine; and metabolic disorders (1 source) Obesity, unspecified Chronic Other nutritional; endocrine; and metabolic disorders (20 sources) Obese class I; Translations: [Obesity (BMI 30.0-34.9)] Onset: 5 05-05-2024 Chronic Other nutritional; endocrine; and metabolic disorders (2 sources) Weight gain; Translations: [Abnormal weight gain] 03-03-2024 Episodic Other screening for suspected conditions (not mental disorders or infectious disease) (4 sources) Encounter for screening mammogram for malignant neoplasm of breast; Translations: [ENC SCR MAMMO MALIG NEOPLASM BREAST] Onset: 2 Episodic Other upper respiratory disease (20 sources) Chronic rhinitis; Translations: [Chronic rhinitis] Onset: 5 11-15-2022 Chronic Other upper respiratory disease (20 sources) Seasonal allergy; Translations: [Other seasonal allergic rhinitis] Onset: 1 11-15-2022 Chronic Other upper respiratory infections (20 sources) Chronic sinusitis; Translations: [Chronic sinusitis, unspecified] Onset: 7 05-31-2007 Chronic Shari-; endo-; and myocarditis; cardiomyopathy (except that caused by tuberculosis or sexually transmitted disease) (1 source) Cardiomyopathy; Translations: [Cardiomyopathy, unspecified] Onset: 3 11-15-2022 Chronic Residual codes; unclassified (20 sources) Obstructive sleep apnea of adult; Translations: [Obstructive sleep apnea (adult) (pediatric)] Onset: 5 11-15-2022 Chronic Residual codes; unclassified (6 sources) Obstructive sleep apnea syndrome; Translations: [Obstructive sleep apnea (adult) (pediatric)] Onset: 1 01-06-2021 Chronic Residual codes; unclassified (1 source) Family history of malignant neoplasm of breast; Translations: [FAMILY HX MALIG NEOPLASM OF BREAST] Onset: 2 Episodic Residual codes; unclassified (1 source) Family history of malignant neoplasm of trachea, bronchus and lung; Translations: [FAM HX MALIG NEOPLSM TRACH BRON LNG] Onset: 2 Episodic Residual codes; unclassified (1 source) Family history of malignant neoplasm of other organs or systems; Translations: [FAM HX MALIG NEOPLASM OTH ORGN/SYS] Onset: 2 Episodic Residual codes; unclassified (1 source) Family history of malignant neoplasm of digestive organs; Translations: [FAM HX MALIG NEOPLASM DIGESTIV ORGN] Onset: 2 Episodic Residual codes; unclassified (1 source) Pain, unspecified; Translations: [Pain, unspecified] Onset: 4 Episodic Spondylosis; intervertebral disc disorders; other back problems (20 sources) Lumbar spondylosis; Translations: [Spondylosis without myelopathy or radiculopathy, lumbar region] Onset: 7 Resolved: 2 Chronic Thyroid disorders (20 sources) Cyst of thyroid; Translations: [Nontoxic single thyroid nodule] Onset: 5 11-15-2022 Chronic Unclassified (1 source) M54.50 - Low back pain, unspecified; Translations: [M54.50 - Low back pain, unspecified] Onset: 2 Unclassified (1 source) Consult Onset: 4 Past or Other Problems Problem Classification Problem Date Documented Da te Episodic/Chronic Abdominal pain (20 sources) Abdominal pain; Translations: [Unspecified abdominal pain] Onset: 07-18-2010 Resolved: 05-05-2024 03-14-2023 Episodic Allergic reactions (20 sources) Cutaneous hypersensitivity; Translations: [Other specified disorders of the skin and subcutaneous tissue] Onset: 04-30-2014 04-30-2014 Episodic Cardiac dysrhythmias (2 sources) Palpitations; Translations: [Palpitations] Onset: 10-05-2023 Episodic Conditions associated with dizziness or vertigo (20 sources) Dizziness and giddiness; Translations: [Dizziness and giddiness] Onset: 05-31-2007 Resolved: 05-05-2024 05-31-2007 Episodic Deficiency and other anemia (20 sources) Iron deficiency anemia; Translations: [Iron deficiency anemia, unspecified] Onset: 04-20-2015 11-15-2022 Episodic E Codes: Fall (10 sources) Fall; Translations: [Unspecified fall, initial encounter] Onset: 11-15-2022 11-15-2022 Episodic Fluid and electrolyte disorders (20 sources) Dehydration; Translations: [Dehydration] Onset: 08-23-2021 Resolved: 10-24-2023 11-15-2022 Episodic Genitourinary symptoms and ill-defined conditions (20 sources) Polyuria; Translations: [Polyuria] Onset: 05-31-2007 05-31-2007 Episodic Headache; including migraine (20 sources) Headache disorder; Translations: [Other headache syndrome] Onset: 11-15-2022 11-15-2022 Episodic Joint disorders and dislocations; trauma-related (20 sources) Acute meniscal tear, medial; Translations: [Other tear of medial meniscus, current injury, unspecified knee, initial encounter] Onset: 11-15-2022 Resolved: 05-05-2024 11-15-2022 Episodic Nausea and vomiting (20 sources) Nausea; Translations: [Nausea] Onset: 07-18-2010 03-14-2023 Episodic Other circulatory disease (1 source) Orthostatic hypotension; Translations: [Orthostatic hypotension] Onset: 07-10-2007 07-10-2007 Episodic Other circulatory disease (5 sources) Elevated blood-pressure reading without diagnosis of hypertension; Translations: [Elevated blood-pressure reading, without diagnosis of hypertension] Onset: 03-14-2012 03-14-2023 Episodic Other circulatory disease (20 sources) History of cardiomyopathy; Translations: [Personal history of other diseases of the circulatory system] Onset: 01-06-2021 03-14-2023 Episodic Other circulatory disease (2 sources) Personal history of other diseases of the circulatory system; Translations: [Personal history of other diseases of the circulatory system] Onset: 06-24-2023 Episodic Other circulatory disease (2 sources) Postural orthostatic tachycardia syndrome ; Translations: [Postural orthostatic tachycardia syndrome (POTS)] Onset: 08-21-2023 Episodic Other connective tissue disease (2 sources) Trochanteric bursitis, right hip; Translations: [Trochanteric bursitis, right hip] Onset: 03-12-2024 Episodic Other connective tissue disease (2 sources) Trochanteric bursitis, left hip; Translations: [Trochanteric bursitis, left hip] Onset: 03-12-2024 Episodic Other connective tissue disease (20 sources) Recurrent falls ; Translations: [Repeated falls] Onset: 07-30-2017 11-15-2022 Episodic Other connective tissue disease (20 sources) Bilateral trochanteric bursitis; Translations: [Trochanteric bursitis, right hip] Onset: 03-12-2024 05-02-2024 Episodic Other connective tissue disease (1 source) Paraparesis; Translations: [Other symptoms and signs involving the musculoskeletal system] 08-05-2023 Episodic Other connective tissue disease (2 sources) Hypermobility syndrome; Translations: [Hypermobility syndrome] Onset: 06-24-2023 Episodic Other gastrointestinal disorders (20 sources) History of irritable bowel syndrome; Translations: [Personal history of other diseases of the digestive system] Onset: 04-20-2015 Resolved: 05-05-2024 11-15-2022 Episodic Other gastrointestinal disorders (20 sources) Diarrhea; Translations: [Diarrhea, unspecified] Onset: 07-18-2010 03-14-2023 Episodic Other infections; including parasitic (20 sources) Sequelae of infectious disease; Translations: [Sequelae of other specified infectious and parasitic diseases] Onset: 06-21-2021 Resolved: 05-05-2024 03-14-2023 Chronic Other infections; including parasitic (20 sources) Personal history of other infectious and parasitic diseases; Translations: [History of severe acute respiratory syndrome coronavirus 2 (SARS-CoV-2) disease] Onset: 07-24-2020 Resolved: 10-24-2023 11-15-2022 Episodic Other injuries and conditions due to external causes (20 sources) Muscle strain; Translations: [Other injury of unspecified body region, initial encounter] Onset: 09-13-2018 Resolved: 05-05-2024 11-15-2022 Episodic Other lower respiratory disease (20 sources) Chronic cough; Translations: [Chronic cough] Onset: 01-06-2021 Resolved: 05-05-2024 11-15-2022 Episodic Other lower respiratory disease (20 sources) Dyspnea on exertion; Translations: [Other forms of dyspnea] Onset: 10-26-2020 11-15-2022 Episodic Other nervous system disorders (20 sources) Skin sensation disturbance; Translations: [Unspecified disturbances of skin sensation] Onset: 11-15-2022 11-15-2022 Episodic Other nervous system disorders (20 sources) Paresthesia; Translations: [Paresthesia of skin] Onset: 04-02-2023 04-02-2023 Episodic Other non-traumatic joint disorders (20 sources) Pain in right knee; Translations: [Right knee pain] Onset: 04-05-2016 Resolved: 05-05-2024 Episodic Other non-traumatic joint disorders (20 sources) Pain in left knee; Translations: [Pain in joint, lower leg] Onset: 11-15-2022 Resolved: 05-05-2024 11-15-2022 Episodic Other nutritional; endocrine; and metabolic disorders (17 sources) Overweight; Translations: [Overweight] Onset: 04-20-2015 11-15-2022 Episodic Other upper respiratory infections (20 sources) Acute pansinusitis; Translations: [Acute pansinusitis, unspecified] Onset: 01-20-2021 Resolved: 10-24-2023 11-15-2022 Episodic Otitis media and related conditions (20 sources) Otitis media; Translations: [Otitis media, unspecified, unspecified ear] Onset: 01-20-2021 Resolved: 10-24-2023 11-15-2022 Episodic Residual codes; unclassified (20 sources) Disturbance in sleep behavior; Translations: [Sleep disorder, unspecified] Onset: 05-31-2007 05-31-2007 Episodic Residual codes; unclassified (20 sources) Acquired absence of cervix and uterus; Translations: [Acquired absence of both cervix and uterus] Onset: 11-15-2022 11-15-2022 Episodic Residual codes; unclassified (20 sources) History of pre-eclampsia; Translations: [Personal history of other complications of , childbirth and the puerperium] Onset: 04-20-2015 11-15-2022 Episodic Residual codes; unclassified (20 sources) History of abdominal hysterectomy; Translations: [Acquired absence of both cervix and uterus] Onset: 11-15-2022 11-15-2022 Episodic Residual codes; unclassified (20 sources) Insomnia; Translations: [Insomnia, unspecified] Onset: 08-11-2020 Resolved: 05-05-2024 11-15-2022 Episodic Residual codes; unclassified (20 sources) Amnesia; Translations: [Other amnesia] Onset: 02-24-2021 11-15-2022 Episodic Spondylosis; intervertebral disc disorders; other back problems (20 sources) Spinal stenosis, lumbar region with neurogenic claudication; Translations: [Lumbar radiculopathy] Onset: 11-15-2022 Episodic Syncope (20 sources) Syncope; Translations: [Syncope and collapse] Onset: 05-01-2011 03-14-2023 Episodic Tuberculosis (2 sources) Pott's curvature; Translations: [Tuberculosis of spine] Onset: 12-29-2015 11-15-2022 Episodic Unclassified (1 source) Low back pain at multiple sites M54.50 Onset: 09-19-2021 Resolved: 09-19-2021 Results Test Name Value Interpretation Reference Range Facil ity Office Visiton 07-30-2024 Follow-up visit [id number] Mandeep Ruiz 1975 F Date Provider Department Center 07/30/2024 287-JEREL [facility] Family History Problem Relation Age of Onset Anemia Mother Cancer Mother Hypertension Mother Thyroid disease Mother Angina Father Cancer Father Heart attack Father 50 Hypertension Father Hypertension Brother Diabetes type II Mother's Sister Cancer Maternal Grandmother Heart attack Maternal Grandfather 50 Heart disease Paternal Grandmother Family Status - Relation Status Age at Mother Father Brother Mother's Sister Maternal Grandmother Maternal Grandfather Paternal Grandmother Level of Service:72364 [place] OFFICE/OUTPATIENT ESTABLISHED MOD MDM 30 MIN Normal [facility] XR Foot - left 3 [facility] Result: AP, medial oblique, lateral views are weight-bearing. No acute fractures or dislocations. Joints appear well-maintained. First ray elevation. Slight increase in the IM 1-2 degrees angle, lateral deviation of the hallux. Slight lateral subluxation of the sesamoids. [facility] [employer] [facility] [employer] [facility] Study observation (narrative) [facility] [employer] XR FOOT 3+ VIEWS LEFTon 09- XR FOOT 3+ VIEWS LEFT Exam: XR - LT FOOT COMPLETE MIN 3 VIEWS Clinical History: Left medial and dorsal foot pain Reference Exam: No comparison FINDINGS: Minor soft tissue swelling of the dorsum of the distal left foot. No acute fracture or other bony lesion. Tarsal bone alignment is anatomic; no intertarsal diastases. Facets of the subtalar joint align appropriately. No radiodense foreign body. IMPRESSION: Minor swelling in the absence of acute underlying osseous/articular pathology. Dictated on: 03/03/2024 3:12 PM This report has been electronically signed and approved by the interpreting Radiologist. Electronically Signed Ra Hdz M.D. 2024-03-03 15:12:55 Normal Not Available Office Visiton 08-21-2023 Follow-up visit [id number] Mandeep Ruiz D 1975 F Date Provider Department Center 08/21/2023 JOCELYNE [facility] Family History Problem Relation Age of Onset Anemia Mother Cancer Mother Hypertension Mother Thyroid disease Mother Angina Father Cancer Father Heart attack Father 50 Hypertension Father Hypertension Brother Diabetes type II Mother's Sister Cancer Maternal Grandmother Heart attack Maternal Grandfather 50 Heart disease Paternal Grandmother Family Status - Relation Status Age at Mother Father Brother Mother's Sister Maternal Grandmother Maternal Grandfather Paternal Grandmother Level of Service:83289 [place] OFFICE/OUTPATIENT ESTABLISHED LOW MDM 20 MIN Normal [facility] XR lumbar spine 6V w bending on 07-07-2022 XR lumbar spine 6V w bending [facility] [place] [address] [place] [address] XRay Report Signed Patient: Elida Ruiz MR#: [id number] : 1975 Acct:[id number] Age/Sex: 47 / F ADM Date: 07/07/22 Loc: ICXD Room: Type: [facility] Attending Dr: Maryse Hinson MD Copies to: Maryse Hinson MD Ordering Provider: Maryse Hinson MD Date of Service: 07/07/22 XR/XR lumbar spine 6V w bending: M47.816 OSTEOARTHRITIS OF LUMBAR SPINE XR lumbar spine 6V w bending 07/07/2022 10:04 AM SIGNS AND SYMPTOMS: Low back pain with right lower extremity radiculopathy PROTOCOLS: Frontal, lateral, oblique, and flexion-extension views of the lumbar spine COMPARISON: 09/19/2021 FINDINGS: The alignment, development and bony structures are normal. There is no fracture or destructive lesion. No pathologic movement on flexion or extension. There is moderate disc height loss at L5-S1 similar to the prior exam. The sacrum and sacroiliac joints are normal. There is evidence of prior cholecystectomy. XR/XR lumbar spine 6V w bending IMPRESSION: There is moderate disc height loss at L5-S1 similar to the prior exam. This is unchanged. No pathologic movement is noted on flexion or extension. Impression dictated by: Ra Chavez M.D.07/07/2022 2:08 PM Dictation Location: [place] [address] Transcribed By: RAMO 07/07/22 1408 Dictated By: Ra Chavez II, MD 07/07/22 1405 Signed By: 07/07/22 1408 [facility] MG MAMM SCREEN 3D EBONI CADon 01-11-2022 MG MAMM SCREEN 3D EBONI CAD Patient: ELIDA RUIZ Exam Date: 01/11/2022 : 1975 Gender:F Ordering : DR YISEL LOWRY Admission #: [id number] Family : KRISTEN MADRIGAL Order #: [id number] CLICK HERE TO VIEW EXAM RADIOLOGY REPORT PROCEDURE: MAMMOGRAM SCREENING 3D BILATERAL CAD COMPARISON: MG MAMM SCREEN 3D EBONI CAD, 01/07/2021. MG MAMM SCREEN EBONI W CAD, 12/02/2019. INDICATIONS: Screening for malignant neoplasm of breast Calculator Name NCI Breast Cancer Risk Assessment Tool 5 Year Breast Cancer Risk 1.70% Lifetime Breast Cancer Risk 18.50% Personal Breast Cancer No Personal Ovarian Cancer No Treatments None Family Cancers Mother with breast cancer at age 68; Grandmother-maternal with uterine cancer at age 30; Grandmother-maternal with pancreas cancer at age 80; Father with lung cancer at age 68. LOCATION: [facility] BREAST COMPOSITION: Heterogeneously dense,which may obscure small masses. FINDINGS: DIAGNOSTIC [...] PALPABLE LUMP SHOULD BE BIOPSIED. Dictated by: Terri Forte M.D. on 01/11/2022 at 12:45 Approved by: Terri Forte M.D. on 01/11/2022 at 13:01 Normal [facility] Basic Metabolic Panelon 05-0 Anion gap [Moles/Vol] 14 mmol/L Normal 12-20 [facility] [employer] Inspector Comment on above: Result Comment: Effe ctive 06/23/2019 reference range changed. Performed By: #### C BC, BMP #### [facility] [address] [place], [place] [id number] Calcium [Mass/Vol] 8.7 mg/dL Normal 8.6-10.2 [facility] [employer] Comment on above: Performed By: #### C BC, BMP #### [facility] [address] [place], [place] [id number] Chloride [Moles/Vol] 108 mmol/L High 98-107 [facility] Specialist Comment on above: Performed By: #### C BC, BMP #### [facility] [address] [place], [place] [id number] CO2 [Moles/Vol] 23 mmol/L Normal 20-31 [facility] [employer]iness Inspector Comment on above: Performed By: #### C BC, BMP #### [facility] [address] [place], [place] [id number] Creatinine [Mass/Vol] 1.0 mg/dL Normal 0.6-1.4 [facility] [employer]iness Inspector Comment on above: Performed By: #### C BC, BMP #### [facility] [address] [place], [place] [id number] eGFRAA 74 mL/min/1.73m2 Normal >60 [facility] [employer]worthiness Inspector Comment on above: Performed By: #### C BC, BMP #### [facility] [address] [place], [place] [id number] eGFRNAA 61 mL/min/1.73m2 Normal >60 [facility] [employer]worthiness Inspector Comment on above: Performed By: #### C BC, BMP #### [facility] [address] [place], [place] [id number] Glucose [Mass/Vol] 89 mg/dL Normal 65-99 [facility] [employer]iness Inspector Comment on above: Result Comment: For FASTING Glucose --- ADA reference ranges: Normal 65-99 mg/dl Prediabetes 100-125 Diabetes >/= 126 Performed By: #### C BC, BMP #### [facility] [address] [place], [place] [id number] Potassium [Moles/Vol] 3.7 mmol/L Normal 3.5-5.5 [facility] [employer]iness Inspector Comment on above: Performed By: #### C BC, BMP #### [facility] [address] [place], [place] [id number] Sodium [Moles/Vol] 141 mmol/L Normal 135-146 [facility] Comment on above: Performed By: #### C MONA, BMP #### [facility] [address] [place], [place] [id number] Urea nitrogen [Mass/Vol] 9 mg/dL Normal 7-25 [facility] Specialist Comment on above: Performed By: #### C MONA, BMP #### [facility] [address] [place], [place] [id number] Complete Blood Counton 10-17 Erythrocyte distribution width (RBC) [Ratio] 12.3 % Normal 11.0-15.0 [facility] Comment on above: Performed By: #### C MONA, BMP #### [facility] [address] [place], [place] [id number] Hematocrit (Bld) [Volume fraction] 42.7 % Normal 35.0-47.0 [facility] Comment on above: Performed By: #### C MONA, BMP #### [facility] [address] [place], [place] [id number] Hemoglobin (Bld) [Mass/Vol] 14.0 g/dL Normal 11.6-15.5 [facility] Specialist Comment on above: Performed By: #### C MONA, BMP #### [facility] [address] [place], [place] [id number] MCH (RBC) [Entitic mass] 30.3 pg Normal 27.0-33.0 [facility] Comment on above: Performed By: #### C MONA, BMP #### [facility] [address] [place], [place] [id number] MCHC (RBC) [Mass/Vol] 32.8 g/dL Normal 32.0-36.0 [facility] Specialist Comment on above: Performed By: #### C MONA, BMP #### [facility] [address] [place], [place] [id number] MCV (RBC) [Entitic vol] 92 fL Normal 80-100 [facility] Specialist Comment on above: Performed By: #### C MONA, BMP #### [facility] [address] [place], [place] [id number] Platelet mean volume (Bld) [Entitic vol] 11.00 fL Normal 7.50-12.50 [facility] Specialist Comment on above: Performed By: #### Marleny DUNN, BMP #### [facility] [address] [place], [place] [id number] Platelets (Bld) [#/Vol] 204 10*3/uL Normal 140-400 [facility] Special[facility] Comment on above: Performed By: #### Marleny DUNN, BMP #### [facility] [address] [place], [place] [id number] RBC (Bld) [#/Vol] 4.62 10*6/uL Normal 3.90-5.20 [facility] Comment on above: Performed By: #### Marleny DUNN, BMP #### [facility] [address] [place], [place] [id number] RDW-SD 41.9 fL Normal 37.0-50.0 [facility] Specialist Comment on above: Performed By: #### Marleny DUNN, BMP #### [facility] [address] [place], [place] [id number] WBC (Bld) [#/Vol] 5.6 10*3/uL Normal 3.8-11.0 [facility] Comment on above: Performed By: #### Marleny DUNN, BMP #### [facility] [address] [place], [place] [id number] XR lumbar spine AP/LAT/FLX/E XTon 09-19-2021 XR lumbar spine AP/LAT/FLX/EXT [facility] [place] [address] XRay Report Signed Patient: Elida Ruiz MR#: [id number] : 1975 Acct:[id number] Age/Sex: 46 / F ADM Date: 09/19/21 Loc: XD Room: Type: [facility] Attending Dr: Kris Membreno MD Ordering Provider: Kris Membreno MD Date of Service: 09/19/21 XR/XR lumbar spine AP/LAT/FLX/EXT: Low back pain at multiple sites,M54.50 Copies to: Kris Membreno MD AP with lateral neutral, flexion extension views of the lumbar spine HISTORY: Back spasms for a few years. COMPARISON:None Lumbar lordosis is adequate. No acute lumbar spine fracture is identified. No lumbar listhesis identified. Advanced L5-S1 spondylosis identified. No hypermobility identified with flexion and extension views. Cholecystectomy clips. No paraspinal abnormality seen. SI joints are maintained. XR/XR lumbar spine AP/LAT/FLX/EXT IMPRESSION: Advanced L5-S1 spondylosis. No hypermobility. Impression dictated by: Dimitris Mancuso M.D.09/19/2021 1:41 PM Dictation Location: [place] [address] Transcribed By: [facility] 09/19/21 1341 Dictated By: Dimitris Mancuso DO 09/19/21 1336 Signed By: 09/19/21 1341 Normal [facility] Comprehensive Metabolic Pane deisi 08-19-2021 Albumin [Mass/Vol] 4.0 g/dL Normal 3.6-5.1 [facility] [employer]worthiness Inspector Comment on above: Performed By: #### L IPD, VITD, CMP, FERR #### [facility] [address] [place], [place] [id number] Albumin/Globulin [Mass ratio] 1.9 {ratio} Normal 1.0-2.5 [facility] [employer]iness Inspector Comment on above: Performed By: #### L IPD, VITD, CMP, FERR #### [facility] [address] [place], [place] [id number] ALP [Catalytic activity/Vol] 83 U/L Normal 35-119 [facility] Specialist Comment on above: Performed By: #### L IPD, VITD, CMP, FERR #### [facility] [address] [place], [place] [id number] ALT [Catalytic activity/Vol] 13 U/L Normal 6-33 [facility] [employer]worthiness Inspector Comment on above: Result Comment: 05/18 Female reference range changed. Performed By: #### L IPD, VITD, CMP, FERR #### [facility] [address] [place], [place] [id number] Anion gap [Moles/Vol] 14 mmol/L Normal 12-20 [facility] [employer]iness Inspector Comment on above: Result Comment: Effe ctive 06/23/2019 reference range changed. Performed By: #### L IPD, VITD, CMP, FERR #### [facility] [address] [place], [place] [id number] AST [Catalytic activity/Vol] 12 U/L Normal 9-34 [facility] Comment on above: Performed By: #### L IPD, VITD, CMP, FERR #### [facility] [address] [place], [place] [id number] BUN/CREA 12 Ratio Normal 6-22 [facility] Comment on above: Performed By: #### L IPD, VITD, CMP, FERR #### [facility] [address] [place], [place] [id number] Calcium [Mass/Vol] 8.8 mg/dL Normal 8.6-10.2 [facility] Comment on above: Performed By: #### L IPD, VITD, CMP, FERR #### [facility] [address] [place], [place] [id number] Chloride [Moles/Vol] 110 mmol/L High 98-107 [facility] Comment on above: Performed By: #### L IPD, VITD, CMP, FERR #### [facility] [address] [place], [place] [id number] CO2 [Moles/Vol] 21 mmol/L Normal 20-31 [facility] Comment on above: Performed By: #### L IPD, VITD, CMP, FERR #### [facility] [address] [place], [place] [id number] Creatinine [Mass/Vol] 1.0 mg/dL Normal 0.6-1.4 [facility] Comment on above: Performed By: #### L IPD, VITD, CMP, FERR #### [facility] [address] [place], [place] [id number] eGFRAA 77 mL/min/1.73m2 Normal >60 [facility] Comment on above: Performed By: #### L IPD, VITD, CMP, FERR #### [facility] [address] [place], [place] [id number] eGFRNAA 64 mL/min/1.73m2 Normal >60 [facility] Specialist Comment on above: Performed By: #### L IPD, VITD, CMP, FERR #### [facility] [address] [facility] [place] [id number] Globulin (S) [Mass/Vol] 2.1 g/dL Normal 1.9-3.7 [facility] [employer] Inspector Comment on above: Performed By: #### L IPD, VITD, CMP, FERR #### [facility] [address] [facility] [place] [id number] Glucose [Mass/Vol] 101 mg/dL High 65-99 Armando alicea [place] Airworthiness Inspector Comment on above: Result Comment: For FASTING Glucose --- ADA reference ranges: Normal 65-99 mg/dl Prediabetes 100-125 Diabetes >/= 126 Performed By: #### L IPD, VITD, CMP, FERR #### [facility] [address] [place], [place] [id number] Potassium [Moles/Vol] 4.3 mmol/L Normal 3.5-5.5 [facility] Airworthiness Inspector Comment on above: Performed By: #### L IPD, VITD, CMP, FERR #### [facility] [address] [place], [place] [id number] Protein [Mass/Vol] 6.1 g/dL Normal 6.1-8.1 Armando rn [place] [employer]worthiness Inspector Comment on above: Performed By: #### L IPD, VITD, CMP, FERR #### [facility] [address] [place], [place] [id number] Sodium [Moles/Vol] 141 mmol/L Normal 135-146 Armando rn [place] [employer]worthiness Inspector Comment on above: Performed By: #### L IPD, VITD, CMP, FERR #### [facility] [address] [place], [place] [id number] TBIL <0.3 Normal [facility] Airworthiness Inspector Comment on above: Performed By: #### L IPD, VITD, CMP, FERR #### [facility] [address] [facility] [facility] [id number] Urea nitrogen [Mass/Vol] 12 mg/dL Normal 7-25 [facility] Airworthiness Inspector Comment on above: Performed By: #### L IPD, VITD, CMP, FERR #### [facility] [address] [facility] [place] [id number] Ferritinon 03-04-2022 FERR 44.4 ng/mL Normal 15.0-150.0 [facility] Specialist Comment on above: Performed By: #### L IPD, VITD, CMP, FERR #### [facility] [address] [facility] [place] [id number] Lipid Panelon 08-19-2021 Cholesterol [Mass/Vol] 156 mg/dL Normal 125-200 [facility] Specialist Comment on above: Result Comment: Low risk < 200mg/dL Borderline risk 201-239 mg/dl High risk > or equal to 240 Performed By: #### L IPD, VITD, CMP, FERR #### [facility] [address] [facility] [place] [id number] Cholesterol in HDL [Mass/Vol] 44 mg/dL Normal >40 [facility] Specialist Comment on above: Result Comment: High Cardiovascular Risk HDL <40 mg/dL Low Cardiovascular Risk HDL > or equal to 60 mg/dl Performed By: #### L IPD, VITD, CMP, FERR #### [facility] [address] [facility] [place] [id number] Cholesterol in LDL [Mass/Vol] 88 mg/dL Normal [facility] Specialist Comment on above: Result Comment: LDL ATP III CLASSIFICATION LDL less than 100 mg/dl Optimal LDL 100-129 mg/dl Near or above optimal LDL 130-159 Borderline high LDL 160-189 High LDL greater than 189 mg/dl Very High Performed By: #### L IPD, VITD, CMP, FERR #### [facility] [address] [place] [id number] Cholesterol in VLDL [Mass/Vol] 24 mg/dL Normal [facility] Specialist Comment on above: Performed By: #### L IPD, VITD, CMP, FERR #### [facility] [address] [place], [place] [id number] Cholesterol.total/C holesterol in HDL [Mass ratio] 4 {ratio} Normal [facility] Specialist Comment on above: Performed By: #### L IPD, VITD, CMP, FERR #### [facility] [address] [place], [place] [id number] Triglyceride [Mass/Vol] 121 mg/dL Normal 30-150 [facility] Specialist Comment on above: Result Comment: TRIG ATPIII CLASSIFICATIONS TRIG less than 150 mg/dl Normal TRIG 150-199 mg/dl Borderline High TRIG 200-500 mg/dl High TRIG greather than 500 mg/dl Very High Performed By: #### L IPD, VITD, CMP, FERR #### [facility] [address] [place], [place] [id number] Q - UR CULT REFLEXon 022 REFLEXIVE URINE CULTURE SEE NOTE Normal [facility] Airworthiness Inspector Comment on above: Order Comment: [facility] performed at: [facility] [employer], [address] [facility], [address] [place] [address], [address] [place] [address], Roof Shingler: Piero Doss MD [facility] Date/Time: [facility] Results Received Date/Time: [facility] Reported Date/Time: Result Comment: NO C ULTURE INDICATED Performed By: #### 3 020X, %SBNOCULI #### [facility] [address] [place] [address] Q - URINALYSIS,COMPLETE,WITH REFLEX TO CULTUREon 08-19-2021 Appearance (U) CLOUDY Abnormal CLEAR [facility] Airworthiness Inspector Comment on above: Order Comment: [facility] performed at: [facility], [address] [facility], [address] [place] [address], [address] [place] [address], Roof Shingler: Piero Doss MD [facility] Date/Time: [facility] Results Received Date/Time: [facility] Reported Date/Time: Performed By: #### 3 020X, %SBNOCULI #### [facility] [address] [place] [address] BACTERIA FEW Abnormal NONE SEEN [facility] Airworthiness Inspector Comment on above: Order Comment: [facility] performed at: [facility], [address] [facility], [address] [place] [address], [address] [place] [address], Roof Shingler: Piero Doss MD [facility] Date/Time: [facility] Results Received Date/Time: [facility] Reported Date/Time: Performed By: #### 3 020X, %SBNOCULI #### [facility] [address] [place] [address] Bilirubin Ql (U) Negative Normal NEGATIVE [facility] Specialist Comment on above: Order Comment: [facility] performed at: [facility] [employer] [facility], [address] [facility], [address] [place] [address], [address] [place] [address], Roof Shingler: Piero Doss MD [facility] Date/Time: [facility] Results Received Date/Time: [facility] Reported Date/Time: Performed By: #### 3 020X, %SBNOCULI #### [facility] [address] [place] [address] CALCIUM OXALATE CRYSTALS MANY Abnormal NONE OR FEW [facility] Airworthiness Inspector Comment on above: Order Comment: [facility] performed at: [facility], [address] [place] [address], [address] [place] [address], [address] [place] [address], Roof Shingler: Piero Doss MD [facility] Date/Time: [facility] Results Received Date/Time: [facility] Reported Date/Time: Performed By: #### 3 020X, %SBNOCULI #### [facility] [address] [place] [address] Color (U) YELLOW Normal YELLOW [facility] Airworthiness Inspector Comment on above: Order Comment: [facility] performed at: [facility], [address] [facility], [address] [place] [address], [address] [place] [address], Roof Shingler: Piero Doss MD [facility] Date/Time: [facility] Results Received Date/Time: [facility] Reported Date/Time: Performed By: #### 3 020X, %SBNOCULI #### [facility] [address] [place] [address] Glucose Ql (U) Negative Normal NEGATIVE [facility] Airworthiness Inspector Comment on above: Order Comment: [facility] performed at: [facility] [employer] [facility], [address] [place] , [address] [place] [address], [address] [place] [address], Roof Shingler: Piero Doss MD [facility] Date/Time: [facility] Results Received Date/Time: [facility] Reported Date/Time: Performed By: #### 3 020X, %SBNOCULI #### [facility] [address] [place] [address] HYALINE CAST NONE SEEN Normal NONE SEEN [facility] Airworthiness Inspector Comment on above: Order Comment: [facility] performed at: [facility] [employer] [facility], [address] [facility], [address] [place] [address], [address] [place] [address], Roof Shingler: Piero Doss MD [facility] Date/Time: [facility] Results Received Date/Time: [facility] Reported Date/Time: Performed By: #### 3 020X, %SBNOCULI #### [facility] [address] [place] [address] Ketones Ql (U) Negative Normal NEGATIVE [facility] Airworthiness Inspector Comment on above: Order Comment: [facility] performed at: [facility] [employer] [facility], [address] [facility], [address] [place] [address], [address] [place] [address], Roof Shingler: Piero Doss MD [facility] Date/Time: [facility] Results Received Date/Time: [facility] Reported Date/Time: Performed By: #### 3 020X, %SBNOCULI #### [facility] [address] [place] [address] Leukocyte esterase Test strip Ql (U) Negative Normal NEGATIVE [facility] Airworthiness Inspector Comment on above: Order Comment: [facility] performed at: [facility] [employer] [facility], [address] [place] , [address] [place] [address], [address] [place] [address], Roof Shingler: Piero Doss MD [facility] Date/Time: [facility] Results Received Date/Time: [facility] Reported Date/Time: Performed By: #### 3 020X, %SBNOCULI #### [facility] [address] [place] [address] Nitrite Ql (U) Negative Normal NEGATIVE [facility] Airworthiness Inspector Comment on above: Order Comment: [facility] performed at: [facility] [employer] [facility], [address] [place] , [address] [place] [address], [address] [place] [address], Roof Shingler: Piero Doss MD [facility] Date/Time: [facility] Results Received Date/Time: [facility] Reported Date/Time: Performed By: #### 3 020X, %SBNOCULI #### [facility] [address] [place] [address] OCCULT BLOOD Negative Normal NEGATIVE [facility] Airworthiness Inspector Comment on above: Order Comment: [facility] performed at: [facility] [employer] [facility], [address] [place] , [address] [place] [address], [address] [place] [address], Roof Shingler: Piero Doss MD [facility] Date/Time: [facility] Results Received Date/Time: [facility] Reported Date/Time: Performed By: #### 3 020X, %SBNOCULI #### [facility] [address] [place] [address] pH (U) 6.0 [pH] Normal 5.0-8.0 [facility] Airworthiness Inspector Comment on above: Order Comment: [facility] performed at: [facility] [employer] [facility], [address] [place] , [address] [place] [address], [id number], Roof Shingler: Piero Doss MD [facility] Date/Time: [facility] Results Received Date/Time: [facility] Reported Date/Time: Performed By: #### 3 020X, %SBNOCULI #### [facility] [address] [place] [address] Protein Ql (U) Negative Normal NEGATIVE [facility] Airworthiness Inspector Comment on above: Order Comment: [facility] performed at: [facility] [employer] [facility], [address] [place] , [address] [place] [address], [address] [place] [address], Roof Shingler: Piero Doss MD [facility] Date/Time: [facility] Results Received Date/Time: [facility] Reported Date/Time: Performed By: #### 3 020X, %SBNOCULI #### [facility] [address] [place] [address] RBC NONE SEEN Normal < OR = 2 [facility] Airworthiness Inspector Comment on above: Order Comment: [facility] performed at: [employer] [employer] [facility], [address] [place] , [address] [place] [address], [address] [place] [address], Roof Shingler: Piero Doss MD [facility] Date/Time: [facility] Results Received Date/Time: [facility] Reported Date/Time: Performed By: #### 3 020X, %SBNOCULI #### [facility] Default [address] [place] [address] Specific gravity (U) [Rel density] 1.020 Normal 1.001-1.035 [facility] Airworthiness Inspector Comment on above: Order Comment: [facility] performed at: [employer], [employer] [facility], [address] [place] , [address] [place] [address], [address] [place] [address], Roof Shingler: Piero Doss MD [facility] Date/Time: [facility] Results Received Date/Time: [facility] Reported Date/Time: Performed By: #### 3 020X, %SBNOCULI #### [facility] [address] [place] [address] SQUAMOUS EPITHELIAL CELLS 0-5 Normal < OR = 5 [facility] Airworthiness Inspector Comment on above: Order Comment: [facility] performed at: [employer], [employer] [facility], [address] [place] , [address] [place] [address], [address] [place] [address], Roof Shingler: Piero Doss MD [facility] Date/Time: [facility] Results Received Date/Time: [facility] Reported Date/Time: Performed By: #### 3 020X, %SBNOCULI #### [facility] [address] [place] [address] WBC NONE SEEN Normal < OR = 5 [facility] Airworthiness Inspector Comment on above: Order Comment: [facility] performed at: [facility], [employer] [facility], [address] [facility], [address] [place], [address], Roof Shingler: Piero Doss MD [facility] Date/Time: [facility] Results Received Date/Time: [facility] Reported Date/Time: Performed By: #### 3 020X, %SBNOCULI #### [facility] Default [address] [place] [address] Vitamin D 25-OHon 08-19-2021 VIT D 25 OH 26 ng/ml Low >29 [facility] Airworthiness Inspector Comment on above: Result Comment: Sri min D Status Deficiency <20 ng/mL Insufficiency 20-29 ng/mL Optimal 30-100 ng/mL Possible Toxicity >=150 ng/mL Performed By: #### L IPD, VITD, CMP, FERR #### [facility] [address] [place], [place] [id number] MRI Knee w/o Righton 022 MRI Knee w/o Right HISTORY: Chronic anterior knee pain with difficulty with flexion. History of prior surgeries with lateral release and arthroscopy TECHNIQUE: Routine non-contrast MRI of the right knee COMPARISON: MRI 06/21/2020, 07/22/2019. RESULT: MENISCI: Medial Meniscus: Intact Lateral Meniscus: Intact LIGAMENTS: ACL, PCL, MCL, LCL Complex: Intact CARTILAGE: Small area of full-thickness fissuring involving the trochlea. Other areas of low grade partial thickness chondral loss. TENDONS: Distal quadriceps intact. Patellar tendon intact. Popliteus tendon intact. BONES AND MARROW: No evidence of fracture or bone marrow replacing process. MUSCLES: Muscle bulk and signal intensity are normal. JOINT FLUID AND SYNOVIUM: Trace joint effusion. No synovitis small Andres's cyst. OTHER: Patella corrine. Small amount of edema signal in the superior/lateral infrapatellar fat pad. Shallow trochlear morphology. TT???TG distance measures 1.5 cm. IMPRESSION: Intact menisci and ligaments. Osteoarthritis, especially involving the trochlea. Findings predisposing to patellar instability/maltracki ng/impingement. Report reported and signed by Silvio Lynn on 06/30/2021 1346 Normal [facility] Airworthiness Inspector Otheron 11-05-1998 CONVERTED ELECTRONIC SIGNATURE KENNY NAVA([facility]) (Electronic signature on file) Final Signed Out: 11/05/1998 13:03 [facility] CONVERTED FINAL DIAGNOSIS SPECIMEN ADEQUACY SATISFACTORY FOR CYTOLOGIC EVALUATION BUT LIMITED BY: NO ENDOCERVICAL COMPONENTS. GENERAL CATEGORIZATION WITHIN NORMAL LIMITS HORMONAL EVALUATION HORMONAL PATTERN COMPATIBLE WITH AGE AND HISTORY [facility] CONVERTED ORDERING PROVIDER Ordering Provider: KEO JUAN [facility] CONVERTED PAP DISCLAIMER The Pap test serves as a screening tool for early detection of cervical cancer. The Pap test does not represent a final diagnostic test for cervical cancer. Furthermore, the Pap test was not designed to screen for other malignancies (endometrial, ovarian cancer, etc....). False negatives and false positives have occurred. If clinically indicated, further patient evaluation is recommended. [facility] Vital Signs Date Time Vital Sign Value Performing Clinician Facility 01-29-2025 11:03-0400 Body height 158.8 cm Maryse Hinson MD Work Phone: [facility] 01-29-2025 11:03-0400 Body mass index (BMI) [Ratio] 31.68 kg/m2 Maryse Hinson MD Work Phone: [facility] 01-29-2025 11:03-0400 Body weight 79.83 kg Maryse Hinson MD Work Phone: [facility] 01-29-2025 11:03-0400 Diastolic blood pressure 86 mm[Hg] Maryse Hinson MD Work Phone: [facility] 01-29-2025 11:03-0400 Systolic blood pressure 142 mm[Hg] Maryse Hinson MD Work Phone: [facility] 10-22-2024 11:35-0400 Diastolic blood pressure 80 mm[Hg] Maryse Hinson MD Work Phone: [facility] 10-22-2024 11:35-0400 Systolic blood pressure 136 mm[Hg] Maryse Hinson MD Work Phone: [facility] 10-22-2024 08:26-0400 Diastolic blood pressure 98 mm[Hg] Mauricio Verhoff PA-C Work Phone: [facility] 10-22-2024 08:26-0400 Heart rate 80 /min Mauricio Verhoff PA-C Work Phone: [facility] 10-22-2024 08:26-0400 Respiratory rate 20 /min Mauricio Verhoff PA-C Work Phone: [facility] 10-22-2024 08:26-0400 Systolic blood pressure 145 mm[Hg] Mauricio Verhoff PA-C Work Phone: [facility] 08-06-2024 08:34-0500 Diastolic blood pressure 104 mm[Hg] Mauricio Verhoff PA-C Work Phone: [facility] 08-06-2024 08:34-0500 Heart rate 85 /min Mauricio Verhoff PA-C Work Phone: [facility] 08-06-2024 08:34-0500 Respiratory rate 18 /min Mauricio Verhoff PA-C Work Phone: [facility] 08-06-2024 08:34-0500 SaO2% (BldA) [Mass fraction] 98 % Mauricio Verhoff PA-C Work Phone: [facility] 08-06-2024 08:34-0500 Systolic blood pressure 162 mm[Hg] Mauricio Verhoff PA-C Work Phone: [facility] 07-21-2024 11:26-0500 Body height 158.8 cm Maryse Hinson MD Work Phone: [facility] 07-21-2024 11:26-0500 Body mass index (BMI) [Ratio] 31.68 kg/m2 Maryse Hinson MD Work Phone: [facility] 07-21-2024 11:26-0500 Body weight 79.83 kg Maryse Hinson MD Work Phone: [facility] 07-21-2024 11:26-0500 Diastolic blood pressure 100 mm[Hg] Maryse Hinson MD Work Phone: [facility] 07-21-2024 11:26-0500 Systolic blood pressure 144 mm[Hg] Maryse Hinson MD Work Phone: [facility] 07-02-2024 08:22-0500 Body height 157.5 cm Mauricio Verhoff PA-C Work Phone: [facility] 07-02-2024 08:22-0500 Body mass index (BMI) [Ratio] 32.01 kg/m2 Mauricio Verhoff PA-C Work Phone: [facility] [employer] [facility] 07-02-2024 08:22-0500 Body weight 79.38 kg Mauricio Verhoff PA-C Work Phone: [facility] 07-02-2024 08:22-0500 Diastolic blood pressure 95 mm[Hg] Mauricio Verhoff PA-C Work Phone: [facility] 07-02-2024 08:22-0500 Heart rate 72 /min Mauricio Verhoff PA-C Work Phone: [facility] [employer] [facility] 07-02-2024 08:22-0500 Respiratory rate 14 /min Mauricio Verhoff PA-C Work Phone: [facility] 07-02-2024 08:22-0500 SaO2% (BldA) [Mass fraction] 100 % Mauricio Verhoff PA-C Work Phone: [facility] 07-02-2024 08:22-0500 Systolic blood pressure 140 mm[Hg] Mauricio Verhoff PA-C Work Phone: [facility] 05-07-2024 09:37-0500 Body height 158.8 cm Thad Capps DPM Work Phone: [facility] 05-07-2024 09:37-0500 Body mass index (BMI) [Ratio] 31.86 kg/m2 Thad Capps DPM Work Phone: [facility] 05-07-2024 09:37-0500 Body weight 80.29 kg Thad Capps DPM Work Phone: [facility] 05-05-2024 09:41-0500 Diastolic blood pressure 82 mm[Hg] Maribel Pump [employer] Work Phone: [facility] 05-05-2024 09:41-0500 Systolic blood pressure 138 mm[Hg] Maribel Pump [employer] Work Phone: [facility] 05-05-2024 09:05-0500 Body mass index (BMI) [Ratio] 32.48 kg/m2 Maribel Pump [employer] Work Phone: [facility] 05-05-2024 09:05-0500 Body weight 80.56 kg Maribel Pump [employer] Work Phone: [facility] 05-05-2024 09:05-0500 Heart rate 72 /min Maribel Pump [employer] Work Phone: [facility] 04-30-2024 08:27-0500 Body mass index (BMI) [Ratio] 32.56 kg/m2 Mauricio Verhoff PA-C Work Phone: [facility] 04-30-2024 08:27-0500 Body weight 80.74 kg Mauricio Verhoff PA-C Work Phone: [facility] 04-30-2024 08:27-0500 Diastolic blood pressure 101 mm[Hg] Mauricio Verhoff PA-C Work Phone: [facility] 04-30-2024 08:27-0500 Heart rate 63 /min Mauricio Verhoff PA-C Work Phone: [facility] 04-30-2024 08:27-0500 Respiratory rate 16 /min Mauricio Verhoff PA-C Work Phone: [facility] 04-30-2024 08:27-0500 SaO2% (BldA) [Mass fraction] 100 % Mauricio Verhoff PA-C Work Phone: [facility] 04-30-2024 08:27-0500 Systolic blood pressure 147 mm[Hg] Mauricio Verhoff PA-C Work Phone: [facility] 03-25-2024 13:32-0400 Body height 157.5 cm Thad Capps DPM Work Phone: [facility] 03-25-2024 13:32-0400 Body mass index (BMI) [Ratio] 32.92 kg/m2 Thad Capps DPM Work Phone: [facility] 03-25-2024 13:32-0400 Body weight 81.65 kg Thad Capps DPM Work Phone: [facility] 03-12-2024 11:37-0400 Body height 157.5 cm Mauricio Verhoff PA-C Work Phone: [facility] 03-12-2024 11:37-0400 Body mass index (BMI) [Ratio] 32.56 kg/m2 Mauricio Verhoff PA-C Work Phone: [facility] 03-12-2024 11:37-0400 Body weight 80.74 kg Mauricio Verhoff PA-C Work Phone: [facility] 03-12-2024 11:37-0400 Diastolic blood pressure 105 mm[Hg] Mauricio Verhoff PA-C Work Phone: [facility] 03-12-2024 11:37-0400 Heart rate 67 /min Mauricio Verhoff PA-C Work Phone: [facility] 03-12-2024 11:37-0400 SaO2% (BldA) [Mass fraction] 100 % Mauricio Wenjuan PA-C Work Phone: [facility] 03-12-2024 11:37-0400 Systolic blood pressure 144 mm[Hg] Mauricio Wenjeffyff PA-C Work Phone: [facility] 03-03-2024 10:28-0400 Body mass index (BMI) [Ratio] 32.92 kg/m2 Yisel Lowry MD Work Phone: [facility] 03-03-2024 10:28-0400 Body weight 81.65 kg Yisel Lowry MD Work Phone: [facility] 03-03-2024 10:28-0400 Diastolic blood pressure 78 mm[Hg] Yisel Lowry MD Work Phone: [facility] 03-03-2024 10:28-0400 Heart rate 72 /min Yisel Lowry MD Work Phone: [facility] 03-03-2024 10:28-0400 Systolic blood pressure 110 mm[Hg] Yisel Lowry MD Work Phone: [facility] 02-29-2024 08:55-0400 Body height 157.5 cm Maryse Hinson MD Work Phone: [facility] 02-29-2024 08:55-0400 Body mass index (BMI) [Ratio] 32.92 kg/m2 Maryse Hinson MD Work Phone: [facility] 02-29-2024 08:55-0400 Body weight 81.65 kg Maryse Hinson MD Work Phone: [facility] 08-03-2023 09:12-0500 Body height 157.5 cm Esvin Villalpando MD Work Phone: [facility] 08-03-2023 09:12-0500 Body mass index (BMI) [Ratio] 30.54 kg/m2 Esvin Villalpando MD Work Phone: [facility] 08-03-2023 09:12-0500 Body weight 75.75 kg Esvin Villalpando MD Work Phone: [employer] 08-03-2023 09:12-0500 Diastolic blood pressure 82 mm[Hg] Esvin Villalpando MD Work Phone: [employer] [facility] 08-03-2023 09:12-0500 Heart rate 76 /min Esvin Villalpando MD Work Phone: [employer] 08-03-2023 09:12-0500 Systolic blood pressure 130 mm[Hg] Esvin Villalpando MD Work Phone: [employer] 05-22-2023 11:30-0500 Body height 157.48 cm Kris Membreno Other [employer] Other 05-22-2023 11:30-0500 Diastolic blood pressure 70 mm[Hg] Kris Membreno Other [employer] Other 05-22-2023 11:30-0500 SaO2% (BldA) [Mass fraction] 99 % Kris Membreno Other [employer] Other 05-22-2023 11:30-0500 Systolic blood pressure 110 mm[Hg] Kris Membreno Other [employer] Other 05-01-2023 13:00-0500 Body height 157.48 cm rBice Brito Other [employer] Other 05-01-2023 13:00-0500 Body mass index (BMI) [Ratio] 30.18 kg/m2 Brice Brito Other [employer] Other 05-01-2023 13:00-0500 Body weight 74.84 kg Brice Brito Other [employer] Other 04-12-2023 09:40-0400 Body height 157.48 cm Sydni Roberto Other [employer] Other 04-12-2023 09:40-0400 Body mass index (BMI) [Ratio] 30.18 kg/m2 Sydni Roberto Other [employer] Other 04-12-2023 09:40-0400 Body weight 74.84 kg Sydni Roberto Other [employer] Other 11-30-2021 12:00-0400 Body height 157.48 cm Maddy Rome Other [employer] Other 11-30-2021 12:00-0400 Body mass index (BMI) [Ratio] 29.66 kg/m2 Maddy Rome Other [employer] Other 11-30-2021 12:00-0400 Body weight 73.57 kg Maddy Rome Other [employer] Other 11-30-2021 12:00-0400 Diastolic blood pressure 87 mm[Hg] Maddy Rome Other [employer] Other 11-30-2021 12:00-0400 Respiratory rate 18 /min Maddy Rome Other [employer] Other 11-30-2021 12:00-0400 SaO2% (BldA) [Mass fraction] 92 % Maddy Rome Other [employer] Other 11-30-2021 12:00-0400 Systolic blood pressure 144 mm[Hg] Maddy Rome Other [employer] Other 09-19-2021 11:30-0400 Body weight 75.84 kg Kris Membreno Other [employer] Other 09-19-2021 11:30-0400 Diastolic blood pressure 88 mm[Hg] Kris Membreno Other [employer] Other 09-19-2021 11:30-0400 SaO2% (BldA) [Mass fraction] 99 % Kris Membreno Other [employer] Other 09-19-2021 11:30-0400 Systolic blood pressure 138 mm[Hg] Kris Membreno Other [employer] Other Encounters Encounter Date Encounter Type Care Provider Facility Start: 02-17-2025 End: 02-17-2025 Telephone encounter Maryse Hinson MD Work Phone: [facility] Start: 02-11-2025 End: 02-11-2025 Refill Maryse Hinson MD Work Phone: [facility] Comment on above: ADHD, predominantly inattentive type Start: 01-29-2025 End: 01-29-2025 Niralio Xtreme Powershaina Hinson MD Work Phone: [facility] Start: 01-29-2025 End: 01-29-2025 Niralio [employer] Powershaina Hinson MD Work Phone: [facility] Start: 01-29-2025 End: 01-29-2025 Office outpatient visit 25 minutes Maryse Hinson MD Work Phone: [facility] Comment on above: POTS (postural ortho static tachycardia syndrome); ADHD, predominantly inattentive type ; Lumbar radiculopathy; Small fiber neuropathy Start: 01-29-2025 End: 01-29-2025 ambulatory MARYSE HINSON Not Available Start: 01-12-2025 End: 01-12-2025 Bamboo flowsheet Yanna Lazcano [facility] Work Phone: [facility] Start: 01-12-2025 End: 01-12-2025 Bamboo flowsheet Yanna Lazcano [facility] Work Phone: [facility] [place] [facility] Start: 01-12-2025 End: 01-12-2025 Telemedicine consultation with patient Yanna Lazcano [facility] Work Phone: [facility] Comment on above: Generalized anxiety disorder (CMS/HCC) [F41.1]; Depressive disorder Start: 01-12-2025 End: 01-12-2025 ambulatory YANNA LAZCANO Not Available Start: 11-04-2024 End: 11-04-2024 Bamboo flowsheet Yanna Lazcano [facility] Work Phone: [facility] Start: 11-04-2024 End: 11-04-2024 Bamboo flowsheet Yanna Lazcano [facility] Work Phone: [facility] Start: 11-04-2024 End: 11-04-2024 Social Work Yanna Lazcano [facility] Work Phone: [facility] Comment on above: Generalized anxiety disorder (CMS/HCC) [F41.1]; Depressive disorder (CMS/HCC) Start: 10-22-2024 End: 10-22-2024 Bamboo flowsheet Maryse Hinson MD Work Phone: [facility] Start: 10-22-2024 End: 10-22-2024 Bamboo flowsheet Maryse Hinson MD Work Phone: [facility] Start: 10-22-2024 End: 10-22-2024 Office outpatient visit 25 minutes Maryse Hinson MD Work Phone: [facility] Comment on above: Primary insomnia (Pr imary Dx); Migraine without aura and without status migrainosus, not intractable (CMS/HCC); POTS (postural orthostatic tachycardia syndrome); ADHD, predominantly inattentive type (CMS/HCC) Start: 10-22-2024 End: 10-22-2024 ambulatory MARYSE HINSON Not Available Start: 10-22-2024 End: 10-22-2024 Office outpatient visit 15 minutes Mauricio Kori Yudi PEREZ Work Phone: [facility] Comment on above: Lumbar spondylosis ( Primary Dx); Disorder of sacrum Start: 10-22-2024 End: 10-22-[address] [facility] Start: 10-02-2024 End: 10-02-2024 Bamboo flowsheet Yanna Lazcano [facility] Work Phone: [facility] Start: 10-02-2024 End: 10-02-2024 Bamboo flowsheet Yanna L Lazcano [facility] Work Phone: [facility] Start: 10-02-2024 End: 10-02-2024 Telemedicine consultation with patient Yanna Lazcano [facility] Work Phone: [facility] Comment on above: Generalized anxiety disorder (CMS/HCC) [F41.1]; Depressive disorder (CMS/HCC) Start: 10-02-2024 End: 10-02-2024 ambulatory YANNA L LAZCANO Not Available Start: 09-19-2024 End: 09-19-2024 ambulatory [facility] Start: 09-08-2024 End: 09-08-2024 ambulatory YANNA L LAZCANO Not Available Start: 08-29-2024 End: 08-29-2024 ambulatory [facility] Start: 08-11-2024 End: 08-11-2024 Bamboo flowsheet Yanna L Lazcano LPCC Work Phone: [facility] Start: 08-11-2024 End: 08-11-2024 Bamboo flowsheet Yanna L Lazcano LPCC Work Phone: [facility] Start: 08-11-2024 End: 08-11-2024 ambulatory YANNA LAZCANO Not Available Start: 08-11-2024 End: 08-11-2024 Telemedicine consultation with patient Yanna Lazcano [facility] Work Phone: [facility] Comment on above: Generalized anxiety disorder (CMS/HCC) [F41.1]; Depressive disorder (CMS/HCC) Start: 08-06-2024 End: 08-06-2024 Office outpatient visit 25 minutes Mauricio CINTRON-C Work Phone: [facility] Comment on above: Lumbar spondylosis ( Primary Dx); Disorder of sacrum Start: 08-06-2024 End: 08-06-2024 ambulatory [facility] Start: 07-30-2024 [facility] Start: 07-25-2024 End: 07-25-2024 ambulatory PJ Mohan [facility] Start: 07-21-2024 End: 07-21-2024 Bamboo flowsheet Maryse Hinson MD Work Phone: [facility] Start: 07-21-2024 End: 07-21-2024 [facility] MD Work Phone: [facility] Start: 07-21-2024 End: 07-21-2024 Office outpatient visit 25 minutes Maryse Hinson MD Work Phone: [facility] Comment on above: ADHD, predominantly inattentive type (CMS/HCC); POTS (postural orthostatic tachycardia syndrome); Migraine without aura and without status migrainosus, not intractable (CMS/HCC); Lumbar radiculopathy; Small fiber neuropathy Start: 07-21-2024 End: 07-21-2024 ambulatory MARYSE HINSON Not Available Start: 07-02-2024 End: 07-02-2024 Office outpatient visit 25 minutes Mauricio Bagley PA-C Work Phone: [facility] Comment on above: Lumbar spondylosis ( Primary Dx) Start: 07-02-2024 End: 07-02-2024 [facility] Start: 06-30-2024 End: 06-30-2024 Telemedicine consultation with patient Yanna Lazcano [facility] Work Phone: [facility] Comment on above: Generalized anxiety disorder (CMS/HCC) [F41.1]; Depressive disorder (CMS/HCC) Start: 06-30-2024 End: 06-30-2024 ambulatory YANNA LAZCANO Not Available Start: 05-30-2024 End: 05-30-2024 ambulatory PJ Mohan CABRALES [facility] Start: 05-20-2024 End: 05-20-2024 Bamboo flowsheet Yanna Lazcano [facility] Work Phone: [facility] Start: 05-20-2024 End: 05-20-2024 Bamboo flowsheet Yanna Lazcano [facility] Work Phone: [facility] Start: 05-20-2024 End: 05-20-2024 Telemedicine consultation with patient Yanna Lazcano [facility] Work Phone: [facility] Comment on above: Generalized anxiety disorder (CMS/HCC) [F41.1]; Depressive disorder (CMS/HCC) Start: 05-20-2024 End: 05-20-2024 ambulatory YANNA LAZCANO Not Available Start: 05-07-2024 End: 05-07-2024 Bamboo flowsheet Thad Capps DPM Work Phone: [facility] Start: 05-07-2024 End: 05-07-2024 Bamboo flowsheet Thad Capps DPM Work Phone: [facility] Start: 05-07-2024 End: 05-07-2024 Office outpatient visit 15 minutes Thad Capps DPM Work Phone: [facility] Comment on above: Left foot pain (Prim celina Dx); Stress fracture of left foot, initial encounter; Equinus contracture of left ankle Start: 05-07-2024 End: 05-07-2024 ambulatory THAD CAPPS Not Available Start: 05-05-2024 End: 05-05-2024 Bamboo flowsheet Maribel Pump [employer] Work Phone: [facility] Start: 05-05-2024 End: 05-05-2024 Bamboo flowsheet Maribel Pump [employer] Work Phone: [facility] Start: 05-05-2024 End: 05-05-2024 Patient encounter status Maribel Pump [employer] Work Phone: [facility] Work Phone: Start: 05-05-2024 End: 05-05-2024 Periodic preventive med est patient 40-64yrs Maribel Pump [employer] Work Phone: [facility] Comment on above: Wellness examination (Primary Dx); Chronic pain syndrome; Disturbance in sleep behavior; Hyperkinetic heart disease; Essential hypertension (CMS/HCC); POTS (postural orthostatic tachycardia syndrome); Disturbance of skin sensation; Extrapyramidal disease; Chronic fatigue syndrome; Neuropathy; Obstructive sleep apnea of adult; Other headache syndrome; Restless legs; Small fiber neuropathy; Lumbar radiculopathy; Paresthesias; Occipital neuralgia of left side; Foraminal stenosis of lumbar region; Mild persistent asthma without complication (CMS/HCC); Dyspnea on exertion; Gastroesophageal reflux disease with esophagitis without hemorrhage; Irritable bowel syndrome with diarrhea; Nausea; Vomiting, unspecified vomiting type, unspecified whether nausea present; Acquired absence of both cervix and uterus; Polyuria; Cervical spondylosis without myelopathy; Chondromalacia of patella, right; Inflammation of sacroiliac joint (CMS/HCC); Lumbosacral spondylosis without myelopathy; Maltracking of right patella; Facet arthritis of lumbar region; Patellofemoral syndrome of right knee; Primary osteoarthritis, unspecified site; Narrowing of intervertebral disc space; Trochanteric bursitis of both hips; Cyst of thyroid (CMS/HCC); Obesity (BMI 30.0-34.9); Vitamin D deficiency; Iron deficiency anemia secondary to inadequate dietary iron intake; Chronic sinusitis, unspecified location; Chronic rhinitis; ADHD, predominantly inattentive type (CMS/HCC); Cutaneous sensory hypersensitivity; Decreased hearing of left ear; Depressive disorder (CMS/HCC); Dyslipidemia (CMS/HCC); Falls; Generalized anxiety disorder (CMS/HCC); Chronic bilateral low back pain with left-sided sciatica; Memory loss; Pure hyperglyceridemia (CMS/HCC); Seasonal allergies; Migraine without status migrainosus, not intractable, unspecified migraine type (CMS/HCC); Syncope and collapse; Sensitivity to sunlight; H/O cardiomyopathy; Disorder of sacrum Start: 05-05-2024 End: 05-05-2024 ambulatory MARIBEL PUMP Not Available Start: 04-30-2024 End: 04-30-2024 Office outpatient visit 25 minutes Mauricio Bagley PA-C Work Phone: [facility] Comment on above: Lumbar spondylosis ( Primary Dx); Trochanteric bursitis of both hips Start: 04-30-2024 End: 04-30-2024 ambulatory [facility] Start: 04-18-2024 ambulatory MAURICIO N [facility] Start: 04-04-2024 End: 04-04-2024 ambulatory [facility] Start: 04-04-2024 End: 04-04-2024 ambulatory [facility] Start: 03-31-2024 End: 03-31-2024 Aisha Madrigal NP Work Phone: [facility] Comment on above: Anxiety; Other chronic pain; POTS (postural orthostatic tachycardia syndrome) Start: 03-31-2024 End: 03-31-2024 Telemedicine consultation with patient Yanna Lazcano [facility] Work Phone: [facility] Comment on above: Generalized anxiety disorder (CMS/HCC) [F41.1]; Depressive disorder (CMS/HCC) Start: 03-31-2024 End: 03-31-2024 ambulatory YANNA LAZCANO Not Available Start: 03-25-2024 End: 03-25-2024 Bamboo flowsheet Thad Capps DPM Work Phone: [facility] Start: 03-25-2024 End: 03-25-2024 Bamboo flowsheet Thad Capps DPM Work Phone: [facility] Start: 03-25-2024 End: 03-25-2024 Office outpatient new 45 minutes Thad Capps DPM Work Phone: [facility] Comment on above: Stress fracture of l eft foot, initial encounter (Primary Dx); Left foot pain; Equinus contracture of left ankle; Difficulty walking; Instability of left ankle joint Start: 03-25-2024 End: 03-25-2024 ambulatory THAD CAPPS Not Available Start: 03-24-2024 ambulatory MAURICIO N [facility] Start: 03-12-2024 End: 03-12-2024 Office outpatient visit 25 minutes Mauricio Bagley PA-C Work Phone: [facility] Comment on above: Disorder of sacrum ( Primary Dx); Trochanteric bursitis of both hips; Lumbar spondylosis; Spinal stenosis of lumbar region with neurogenic claudication Start: 03-12-2024 End: 03-12-2024 ambulatory [facility] Start: 03-04-2024 End: 03-04-2024 Telephone encounter Maryse Hinson MD Work Phone: [facility] Start: 03-03-2024 End: 03-03-2024 Bamboo flowsheet Yisel Lowry MD Work Phone: [facility] Start: 03-03-2024 End: 03-03-2024 Bamboo flowsheet Yisel Lowry MD Work Phone: [facility] Start: 03-03-2024 End: 03-03-2024 ambulatory YISEL LOWRY Not Available Start: 03-03-2024 End: 03-03-2024 Office outpatient visit 25 minutes Yisel Lowry MD Work Phone: [facility] Comment on above: Left foot pain (Prim celina Dx); Small fiber neuropathy; Occipital neuralgia of left side; Foraminal stenosis of lumbar region; Chronic fatigue syndrome; Mild persistent asthma without complication (CMS/HCC); POTS (postural orthostatic tachycardia syndrome); Essential hypertension (CMS/HCC); Inflammation of sacroiliac joint (CMS/HCC); Weight gain; Other fatigue; Vitamin D deficiency; Need for vaccination; Female incontinence Start: 03-03-2024 End: 03-03-2024 ambulatory YISEL LOWRY Not Available Start: 02-29-2024 End: 02-29-2024 Bamboo flowsheet Maryse Hinson MD Work Phone: [facility] Start: 02-29-2024 End: 02-29-2024 Bamboo flowsheet Maryse Hinson MD Work Phone: [facility] Start: 02-29-2024 End: 02-29-2024 Office outpatient visit 25 minutes Maryse iHnson MD Work Phone: [facility] Comment on above: Lumbar radiculopathy (Primary Dx); Foraminal stenosis of lumbar region; Lumbosacral spondylosis without myelopathy; Acute left-sided low back pain with left-sided sciatica; Migraine without aura and without status migrainosus, not intractable (CMS/HCC); Small fiber neuropathy; POTS (postural orthostatic tachycardia syndrome); ADHD, predominantly inattentive type (CMS/HCC) Start: 02-29-2024 End: 02-29-2024 ambulatory MARYSE HINSON Not Available Start: 02-12-2024 End: 02-12-2024 Bamboo flowsheet Yanna Lazcano [facility] Work Phone: [facility] Start: 02-12-2024 End: 02-12-2024 Bamboo flowsheet Yanna Lazcano [facility] Work Phone: [facility] Start: 02-12-2024 End: 02-12-2024 Telemedicine consultation with patient Yanna Lazcano [facility] Work Phone: [facility] Comment on above: Generalized anxiety disorder (CMS/HCC) [F41.1]; Depressive disorder (CMS/[facility]) Start: 02-12-2024 End: 02-12-2024 ambulatory YANNA LAZCANO Not Available Start: 10-05-2023 End: 10-05-2023 ambulatory JOCELYNE MARIAPRERNA [facility] Start: 08-21-2023 ambulatory JOCELYNE PIPERKori [facility] Start: 08-03-2023 End: 08-03-2023 ambulatory ESVIN VILLALPANDO [facility] Start: 08-03-2023 End: 08-03-2023 Office outpatient new 30 minutes Esvin Villalpando MD Work Phone: [facility] Comment on above: Lumbar spondylosis ( Primary Dx); Chronic midline low back pain without sciatica; Leg weakness, bilateral Start: 08-01-2023 Telephone encounter Yisel gonzales MD Work Phone: [facility] Start: 07-30-2023 End: 07-30-2023 ambulatory Kris Haseeb Other [employer] Other Start: 07-30-2023 Encounter by computer link Kris martinez [facility] Start: 07-25-2023 ambulatory YISEL LOWRY [facility] Start: 06-05-2023 End: 06-05-2023 ambulatory Kris Haseeb Other [employer] Other Start: 06-05-2023 Encounter by computer link Kris Deyanira martinez [facility] Start: 05-22-2023 End: 05-22-2023 ambulatory Kris Membreno Other [employer] Other Start: 05-22-2023 Office outpatient vi sit 25 minutes Kris Membreno [facility] Start: 05-15-2023 (PROC) PROCEDURE Kris De Souza [facility] Start: 05-15-2023 End: 05-15-2023 ambulatory Kris Membreno Other [employer] Other Start: 05-01-2023 End: 05-01-2023 ambulatory Brice Brito Other [employer] Other Start: 05-01-2023 Office outpatient vi sit 15 minutes Brice Brito [facility] Start: 04-12-2023 End: 04-12-2023 ambulatory Sydni Roberto Other [employer] Other Start: 04-12-2023 Office outpatient ne w 45 minutes Sydni Roberto [facility] Start: 07-07-2022 End: 07-07-2022 ambulatory Yisel Lowry Facility:[facility] Start: 01-11-2022 End: 01-12-[address] YISEL LOWRY Facility: Start: 11-30-2021 End: 11-30-2021 ambulatory Maddy Rome Other [employer] Other Start: 11-30-2021 Office outpatient vi sit 25 minutes Maddy Rome [facility] Start: 11-15-2021 (Procedure) Yung Membreno [facility] Start: 11-15-2021 End: 11-15-2021 ambulatory Kris Membreno Other [employer] Other Start: 09-29-2021 (Procedure) Short Kris Membreno [facility] Start: 09-29-2021 End: 09-29-2021 ambulatory Kris Membreno Other [employer] Other Start: 09-19-2021 Office outpatient vi sit 25 minutes Kris Haseeb [facility] Start: 09-19-2021 End: 09-19-2021 ambulatory Kris Membreno [employer] Other Start: 01-30-2018 End: 01-31-2018 Patient encounter procedure JEREL CHI Facility:[facility] Start: 09-10-2017 Ambulatory Lena Collazo Facility:[id number] Start: 10-27-1998 End: 10-27-1998 Patient encounter procedure Belkis Juan Work Phone: [facility] Start: 10-27-1998 Results Only Belkis Juan Work Phone: [facility] Procedures Date Procedure Procedure Detail Performing Clinician Start: 03-25-2024 Radex foot complete minimum 3 views Thad Capps DPM Work Phone: Start: 02-22-2024 Mammography Maryse melendrez MD Work Phone: Start: 01-11-2022 Mammography Yisel watson MD Work Phone: Start: 09-26-1999 Microscopic observat ion [Identifier] in Cervix by Cyto stain Yanna Lazcano [facility] Work Phone: Start: 10-27-1998 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: Plan of Treatment Date Care Activity Detail Author Start: 03-08-2026 Screening for malign ant neoplasm of colon [facility] Start: 10-22-2025 Tobacco Screening Tobacco Screening [facility] Start: 08-06-2025 Tobacco Screening Tobacco Screening [facility] Start: 07-02-2025 Adult BMI Screening Adult BMI Screen ing [facility] Start: 07-02-2025 Tobacco Screening Tobacco Screening [facility] Start: 05-01-2025 End: 05-01-2025 Patient encounter procedure 05/01/2025 9:00 AM EST Office Visit [facility] [address] [place] [address] Maryse Hinson MD [address] [facility] [address] [place] [address] [facility] Start: 04-30-2025 Adult BMI Screening Adult BMI Screen ing [facility] Start: 04-30-2025 Tobacco Screening Tobacco Screening [facility] Start: 03-12-2025 Adult BMI Screening Adult BMI Screen ing [facility] Start: 03-12-2025 Tobacco Screening Tobacco Screening [facility] Start: 02-24-2025 End: 02-24-2025 Telemedicine consultation with patient 02/24/2025 10:00 AM EDT Telemedicine [facility] [facility] [address] [place] [address] Yanna Lazcano, [facility] [address] [place] [address] [facility] Start: 02-21-2025 Screening for malign ant neoplasm of breast Mammogram [facility] Start: 02-16-2025 Influenza vaccination [facility] Start: 01-29-2025 End: 01-29-2025 Patient encounter procedure [facility] Comment on above: Arrived Start: 01-28-2025 End: 01-28-2025 Patient encounter procedure 01/28/2025 8:15 AM EDT Office Visit [facility] [address] [place] [address] Mauricio Bagley, PABrad [address] [facility] [place] [address] [facility] Start: 01-12-2025 End: 01-12-2025 Telemedicine consultation with patient 01/12/2025 12:00 PM EDT Telemedicine [facility] [address] [place] [address] Yanna Lazcano, [facility] [address] [place] [address] Arrived [facility] Comment on above: Arrived Start: 01-06-2025 End: 01-06-2025 Social Work 01/06/2025 11:00 AM EDT Social Work [facility] [address] [place] [phone] Yanna Lazcano, [facility] [address] [place] [address] [facility] Start: 10-27-2024 End: 10-27-2024 Telemedicine consultation with patient 10/27/2024 10:00 AM EDT Telemedicine [facility] [address] [place] [phone] Yanna Lazcano, [facility] [address] [place] [address] [facility] Start: 10-22-2024 End: 10-22-2024 Patient encounter procedure [facility] Comment on above: Arrived Start: 10-22-2024 End: 10-22-2024 Patient encounter procedure 10/22/2024 8:30 AM EDT Office Visit [facility] [address] [place] [phone] Mauricio Bagley PA-C [address] [place] [address] [facility] Start: 10-02-2024 End: 10-02-2024 Telemedicine consultation with patient 10/02/2024 12:00 PM EDT Telemedicine [facility] [address] [place] [phone] Yanna Lazcano, [facility] [address] [place] [address] Arrived [facility] Comment on above: Arrived Start: 09-19-2024 End: 09-19-2024 Admission to same day surgery center 09/19/2024 7:45 AM EDT - 09/19/2024 7:56 AM EDT Surgery [facility] [address] [place] [phone] Pj Cabrales MD [address] [place] [address] RADIOFREQUENCY ABLATION SPINAL Left L 4/5,10/16 [49093 (CPT )] [facility] Comment on above: RADIOFREQUENCY ABLAT ION SPINAL Left L 4/5,10/16 [35853 (CPT )] Start: 09-19-2024 End: 09-19-2024 Dstr nrolytc agnt parverteb fct sngl lmbr/sacral RADIOFREQUENCY ABLATION SPINAL Lumbar spondylosis 09/19/2024 7:45 AM EDT [facility] Start: 09-19-2024 Subsequent hospital visit by physician 09/19/2024 7:45 AM EDT Hospital Encounter [facility] [address] [place] [phone] Pj Cabrales MD [address] [facility] [place] [id number] [facility] Start: 09-08-2024 End: 09-08-2024 Telemedicine consultation with patient 09/08/2024 10:00 AM EDT Telemedicine [facility] [address] [place] [id number] Yanna Lazcano, [facility] [address] [place] [address] [facility] Start: 08-29-2024 End: 08-29-2024 Admission to same day surgery center 08/29/2024 10:15 AM EDT - 08/29/2024 10:26 AM EDT Surgery [facility] [address] [place] [phone] Pj Cabrales MD [address] [place], [place] [id number] RADIOFREQUENCY ABLATION SPINAL Right L 4/5,5/1 [05731 (CPT )] [facility] Comment on above: RADIOFREQUENCY ABLAT ION SPINAL Right L 4/5,5/1 [72050 (CPT )] Start: 08-29-2024 End: 08-29-2024 Dstr nrolytc agnt parverteb fct sngl lmbr/sacral RADIOFREQUENCY ABLATION SPINAL Lumbar spondylosis 08/29/2024 10:15 AM EDT [facility] Start: 08-29-2024 Subsequent hospital visit by physician 08/29/2024 10:15 AM EDT Hospital Encounter [facility] [address] [place] [address] Pj Cabrales MD [address] [place] [address] [facility] Start: 08-06-2024 End: 08-06-2024 Patient encounter procedure 08/06/2024 8:45 AM EST Office Visit [facility] [address] [place] [address] Mauricio Bagley, PABrad [address] [place] [address] [facility] Start: 08-03-2024 Adult BMI Screening Adult BMI Screen [facility] Start: 08-03-2024 Tobacco Screening Tobacco Screening [facility] Start: 07-28-2024 End: 07-28-2024 Telemedicine consultation with patient 07/28/2024 11:00 AM EST Telemedicine [facility] [address] [place] [address] Yanna Lazcano, [facility] [address] [place] [address] [facility] Start: 07-25-2024 End: 07-25-2024 Admission to same day surgery center 07/25/2024 10:08 AM EST - 07/25/2024 10:15 AM EST Surgery [facility] [address] [place] [phone] Pj Cabrales MD [address] [facility], [place] [id number] INJECTION BLOCK NERVE MEDIAL BRANCH Bilateral L 4/5,5/1 [79190 (CPT )] [facility] Comment on above: INJECTION BLOCK NERV E MEDIAL BRANCH Bilateral L 4/5,5/1 [55200 (CPT )] Start: 07-25-2024 End: 07-25-2024 Njx dx/ther agt pvrt facet jt lmbr/sac 1 level INJECTION BLOCK NERVE MEDIAL BRANCH Lumbar spondylosis 07/25/2024 10:08 AM EST [facility] Start: 07-25-2024 Subsequent hospital visit by physician 07/25/2024 10:08 AM EST Hospital Encounter [facility] [address] [facility] [place] [phone] Pj Cabrales MD [address] [facility] [place], [place] [phone] [facility] Start: 07-21-2024 End: 07-21-2024 Patient encounter procedure [facility] Comment on above: Arrived Start: 07-09-2024 End: 07-09-2024 Patient encounter procedure 07/09/2024 3:30 PM EST Office Visit [facility] [address] [place] [address] [address] [facility] [place] [address] Amarilis Lizarraga I, PA [address] [place] [address] [facility] Start: 07-02-2024 End: 07-02-2024 Patient encounter procedure 07/02/2024 8:15 AM EST Office Visit [facility] [address] [place] [phone] Mauricio Bagley, ANA [address] [place] [address] [facility] Start: 06-23-2024 End: 06-23-2024 Telemedicine consultation with patient 06/23/2024 11:00 AM EST Telemedicine [facility] [address] [place] [address] Yanna Lazcano, [facility] [address] [place] [address] [facility] Start: 06-02-2024 End: 03-03-2025 XR Foot - left 3 Views XR foot 3+ views left Imaging Routine Left foot pain Expected: 06/02/2024, Expires: 03/03/2025 [facility] Work Phone: Comment on above: Expected: 06/02/2024 , Expires: 03/03/2025 Start: 05-30-2024 End: 05-30-2024 Admission to same day surgery center 05/30/2024 9:07 AM EST - 05/30/2024 9:15 AM EST Surgery [facility] [address] [facility] [place] [address] Pj Cabrales MD [address] [place], [place] [id number] INJECTION BLOCK NERVE MEDIAL BRANCH BIlateral L 4/5, 5/1 [67140 (CPT )] [facility] Comment on above: INJECTION BLOCK NERV E MEDIAL BRANCH BIlateral L 4/5, 5/1 [80214 (CPT )] Start: 05-30-2024 End: 05-30-2024 Njx dx/ther agt pvrt facet jt lmbr/sac 1 level INJECTION BLOCK NERVE MEDIAL BRANCH Lumbar spondylosis 05/30/2024 9:07 AM EST [facility] Start: 05-30-2024 Subsequent hospital visit by physician 05/30/2024 9:07 AM EST Hospital Encounter [facility] [address] [place] [place] [place] [address] Pj Cabrales MD [address] [place] [address] [facility] Start: 05-29-2024 End: 05-29-2024 Patient encounter procedure 05/29/2024 9:00 AM EST Office Visit [facility] [address] [place] [address] Maryse Hinson MD [address] [facility] [address] [address] [facility] Start: 05-28-2024 End: 05-28-2024 Patient encounter procedure 05/28/2024 9:00 AM EST Office Visit [facility] [address] [place] [address] [address] [facility] [place] [phone] Amarilis Lizarraga I, PA [address] [place] [address] [facility] Start: 05-20-2024 End: 05-20-2024 Telemedicine consultation with patient 05/20/2024 10:00 AM EST Telemedicine [facility] [address] [place] [address] Yanna Lazcano, [facility] [address] [place] [address] [facility] Start: 05-07-2024 End: 05-07-2024 Patient encounter procedure [facility] Comment on above: Arrived Start: 04-29-2024 End: 04-29-2024 Telemedicine consultation with patient 04/29/2024 10:00 AM EST Telemedicine [facility] [address] [place] [address] Yanna Lazcano, [facility] [address] [place] [address] [facility] Start: 04-28-2024 End: 04-28-2024 Patient encounter procedure [facility] Start: 04-23-2024 End: 04-23-2024 Patient encounter procedure 04/23/2024 10:45 AM EST Office Visit [facility] [address] [place] [address] Mauricio Bagley, PAParisaC [address] [facility], [address]nd [place] [address] [facility] Start: 04-04-2024 End: 04-04-2024 Admission to same day surgery center 04/04/2024 8:52 AM EDT - 04/04/2024 9:00 AM EDT Surgery [facility] [address] [place] [address] Pj Cabrales MD [address] [place] [address] INJECTION BLOCK EPIDURAL CAUDAL STEROID [80349 (CPT )] [facility] Comment on above: INJECTION BLOCK EPID URAL CAUDAL STEROID [22401 (CPT )] Start: 04-04-2024 End: 04-04-2024 Njx dx/ther sbst intrlmnr lmbr/sac w/img gdn INJECTION BLOCK EPIDURAL CAUDAL STEROID Spinal stenosis of lumbar region with neurogenic claudication 04/04/2024 8:52 AM EDT [facility] Start: 04-04-2024 Subsequent hospital visit by physician 04/04/2024 8:52 AM EDT Hospital Encounter [facility] [address] [place] [phone] Pj Cabrales MD [address] [place] [address] [facility] Start: 03-31-2024 End: 03-31-2024 Telemedicine consultation with patient [facility] Start: 03-25-2024 End: 03-25-2024 Patient encounter procedure 03/25/2024 1:30 PM EDT Office Visit [facility] [address] [place] [phone] Thad Capps, DPM [address] [place] [address] Left foot pain [facility] Comment on above: Left foot pain Start: 03-11-2024 End: 03-11-2024 Telemedicine consultation with patient 03/11/2024 10:00 AM EDT Telemedicine [facility] [address] [place] [address] Yanna Lazcano, [facility] [address] [place] [address] [facility] Start: 03-03-2024 End: 03-03-2025 25-hydroxyvitamin D3 [Mass/volume] in Serum or Plasma Vitamin D 25 hydroxy Lab Routine Vitamin D deficiency Expected: 03/03/2024 (Approximate), Expires: 03/03/2025 [facility] Comment on above: Expected: 03/03/2024 (Approximate), Expires: 03/03/2025 Start: 03-03-2024 End: 03-03-2025 CBC W Auto Differential panel - Blood CBC and differential Lab Routine Chronic fatigue syndrome Expected: 03/03/2024 (Approximate), Expires: 03/03/2025 [facility] Comment on above: Expected: 03/03/2024 (Approximate), Expires: 03/03/2025 Start: 03-03-2024 End: 03-03-2025 Comprehensive metabolic 2000 panel - Serum or Plasma Comprehensive metabolic panel Lab Routine Essential hypertension (CMS/HCC) Expected: 03/03/2024 (Approximate), Expires: 03/03/2025 [facility] Comment on above: Expected: 03/03/2024 (Approximate), Expires: 03/03/2025 Start: 03-03-2024 End: 03-03-2025 Lipid 1996 panel - Serum or Plasma Lipid panel Lab Routine Essential hypertension (CMS/HCC) Expected: 03/03/2024 (Approximate), Expires: 03/03/2025 [facility] Comment on above: Expected: 03/03/2024 (Approximate), Expires: 03/03/2025 Start: 03-03-2024 End: 03-03-2025 Thyrotropin [Units/volume] in Serum or Plasma TSH Lab Routine Chronic fatigue syndrome Weight gain Expected: 03/03/2024 (Approximate), Expires: 03/03/2025 [facility] Comment on above: Expected: 03/03/2024 (Approximate), Expires: 03/03/2025 Start: 03-03-2024 End: 03-03-2025 Thyroxine (T4) free [Mass/volume] in Serum or Plasma T4, free Lab Routine Chronic fatigue syndrome Weight gain Expected: 03/03/2024 (Approximate), Expires: 03/03/2025 [facility] Comment on above: Expected: 03/03/2024 (Approximate), Expires: 03/03/2025 Start: 03-03-2024 End: 03-03-2024 Patient encounter procedure [facility] Comment on above: Small fiber neuropat hy (Primary Dx); Occipital neuralgia of left side; Foraminal stenosis of lumbar region; Chronic fatigue syndrome; Mild persistent asthma without complication (CMS/HCC); POTS (postural orthostatic tachycardia syndrome); Essential hypertension (CMS/HCC); Inflammation of sacroiliac joint (CMS/HCC) Start: 02-29-2024 End: 02-29-2024 Patient encounter procedure [facility] Comment on above: Arrived Start: 02-17-2024 COVID-19 Vaccine ( season) COVID-19 Vaccine () [facility] Start: 02-17-2024 COVID-19 Vaccine ( season) COVID-19 Vaccine ( season) [facility] Start: 02-17-2024 Influenza vaccination Influenza Vacc ine (#1) [facility] Start: 02-12-2024 End: 02-12-2024 Telemedicine consultation with patient 02/12/2024 11:00 AM EDT [facility] [address] [place] [address] Yanna Lazcano, [facility] [address] [place] [address] [facility] Comment on above: Arrived Start: 10-25-2023 End: 10-25-2023 Patient encounter procedure 10/25/2023 8:30 AM EDT Office Visit [facility] [address] [place] [phone] Nichole Dozier, IN[employer]ER [address] [place] [address] [facility] Start: 08-22-2023 Screening for malign ant neoplasm of cervix [facility] Start: 08-09-2023 End: 08-09-2023 Patient encounter procedure 08/09/2023 3:30 PM EST Office Visit [facility] [address] [place] [address] Maryse Hinson MD [address] [facility] [address] [address] [facility] Start: 02-16-2023 COVID-19 Vaccine ( season) COVID-19 Vaccine () [facility] Start: 01-11-2023 Screening for malign ant neoplasm of breast Mammogram [facility] Start: 11-16-2021 DTaP,Tdap and Td Vaccines (2 - Td or Tdap) DTaP,Tdap and Td Vaccines (2 - Td or Tdap) [facility] Start: 02-17-2020 Influenza vaccination INFLUENZA (#1) [facility] Start: 2016 Mammography MAMMOGRAM [facility] Start: 09-26-2011 Screening for malign ant neoplasm of colon Sigmoidoscopy [facility] Start: 2006 HPV TESTING HPV TESTING [facility] Start: 09-25-2002 Screening for malign ant neoplasm of cervix Pap Smear [facility] Start: 1997 PAP TESTING PAP TESTING [facility] Start: 1995 Urine microalbumin profile DTAP,TDAP,TD (1 - Tdap) [facility] Start: 1994 Adult BMI Follow Up Plan Adult BMI F ollow Up Plan [facility] Start: 1994 HIV SCREENING HIV SCREENING [facility] Start: 1988 Depression Screening Depression Scre ening [facility] Start: 1976 Screening for malign ant neoplasm of colon [facility] XR Foot - left 3 Views XR foot 3 + views left Imaging Routine Left foot pain 03/03/2024 11:35 AM EDT [facility] Immunizations Immunization Date Immunization Notes Care Provider Eva garcia 03-03-2024 influenza, seasonal, injectable, preservative free Yisel Lowry MD Work Phone: [facility] 03-03-2024 influenza virus vaccine, unspecified formulation Mauricio Bagley PA-C Work Phone: [facility] 04-18-2023 influenza, injectabl e, quadrivalent, preservative free Yisel Lowry MD Work Phone: [facility] 04-18-2023 influenza virus vaccine, unspecified formulation Yanna Lazcano [facility] Work Phone: [facility] 03-27-2022 influenza, injectabl e, quadrivalent, preservative free Yisel Lowry MD Work Phone: [facility] 05-20-2021 Influenza, injectabl e, Madin Debby Canine Kidney, preservative free, quadrivalent Yisel Lowry MD Work Phone: [facility] 04-05-2021 influenza, injectable,quadrivalent , preservative free, pediatric Yisel Lowry MD Work Phone: [facility] 04-12-2020 influenza, injectabl e, quadrivalent, preservative free Yisel Lowry MD Work Phone: [facility] 03-18-2019 influenza, injectabl e, quadrivalent, contains preservative Yisel Lowry MD Work Phone: [facility] 03-12-2019 influenza, injectabl e, quadrivalent, preservative free Yisel Lowry MD Work Phone: [facility] 03-18-2018 influenza virus vaccine, unspecified formulation Yisel Lowry MD Work Phone: [facility] 03-06-2018 influenza, injectabl e, quadrivalent, preservative free Yisel Lowry MD Work Phone: [facility] 03-28-2017 influenza, injectabl e, quadrivalent, preservative free Yisel Lowry MD Work Phone: [facility] 05-03-2016 influenza virus vaccine, unspecified formulation Yisel Lowry MD Work Phone: [facility] 03-28-2016 influenza, injectabl e, quadrivalent, preservative free Yisel Lowry MD Work Phone: [facility] 03-19-2015 influenza virus vaccine, live, attenuated, for intranasal use Yisel Lowry MD Work Phone: [facility] 03-18-2014 influenza virus vaccine, unspecified formulation Yisel Lowry MD Work Phone: [facility] 03-19-2012 influenza virus vaccine, whole virus Yisel Lowry MD Work Phone: [facility] 11-17-2011 tetanus toxoid, redu suzie diphtheria toxoid, and acellular pertussis vaccine, adsorbed Yisel Lowry MD Work Phone: [facility] Payers Date Payer Category Payer Self-pay 2021 [employer] BCBS [id number] 2021 [employer] [facility] - PPO ANTHEM [id number] 2021 Unknown [id number] [id number]. [id number] 2021 Unknown [id number] 1976 Unknown [id number] 2.16.840.1.147888.3.579. 2.647 1976 Unknown [id number] 2.16.840.1.652330.3.579. 2.593 1976 Unknown [id number] 2.16.840.1.183652.3.579. 2.1286 1976 Unknown [id number] 2.16.840.1.543038.3.579. 2.1285 1976 Unknown [id number] 2.16.840.1.208552.3.579. 2.1285 1976 Unknown [id number] 2.16.840.1.354933.3.579. 2.1285 1976 Unknown [id number] 2.16.840.1.422864.3.579. 2.1285 1976 Unknown [id number] 2.16.840.1.565716.3.579. 2.1285 1976 Unknown [id number] 2.16.840.1.563587.3.579. 2.1285 1976 Unknown [id number] 2.16.840.1.004801.3.579. 2.1285 1976 Unknown [id number] 2.16.840.1.344196.3.579. 2.1285 1976 Unknown [id number] 2.16.840.1.506217.3.579. 2.1285 1976 Unknown [id number] 2.16.840.1.650101.3.579. 2.1285 1976 Unknown [id number] 2.16.840.1.407311.3.579. 2.1285 1976 Unknown [id number] 2.16.840.1.002843.3.579. 2.1285 1976 Unknown [id number] 2.16.840.1.339391.3.579. 2.1285 1976 Unknown [id number] 2.16.840.1.117583.3.579. 2.1285 1976 Unknown [id number] 2.16.840.1.656986.3.579. 2.1285 1976 Unknown [id number] 2.16.840.1.435603.3.579. 2.1286 1976 Unknown [id number] 2.16.840.1.517131.3.579. 2.1286 1976 Unknown [id number] 2.16.840.1.854337.3.579. 2.1286 1976 Unknown [id number] 2.16.840.1.373977.3.579. 2.1259 1976 Unknown [id number] 2.16.840.1.915501.3.579. 2.125 1976 Unknown [id number] 2.16.840.1.660032.3.579. 2.1258 1976 Unknown [id number] 2.16.840.1.713311.3.579. 2.1258 1976 Unknown [id number] 2.16.840.1.154259.3.579. 2.1258 1976 Unknown [id number] 2.16.840.1.804343.3.579. 2.1258 1976 Unknown [id number] 2.16.840.1.386871.3.579. 2.1258 1976 Unknown [id number] 2.16.840.1.365233.3.579. 2.1258 1976 Unknown [id number] 2.16.840.1.674594.3.579. 2.1258 1976 Unknown [id number] 2.16.840.1.578237.3.579. 2.125 1976 Unknown [id number] 2.16.840.1.575129.3.579. 2.1258 1976 Unknown [id number] 2.16.840.1.733374.3.579. 2.1258 1976 Unknown [id number] 2.16.840.1.024935.3.579. 2.1259 1976 Unknown [id number] 2.16.840.1.535551.3.579. 2.1259 1976 Unknown [id number] 2.16.840.1.842359.3.579. 2.9 1976 Unknown [id number] 2.16.840.1.724802.3.579. 2.9 1976 Unknown [id number] 2.16.840.1.671683.3.579. 2.9 1976 Unknown [id number] 2.16.840.1.280328.3.579. 2.9 1976 Unknown [id number] 2.16.840.1.136913.3.579. 2.1259 1959 Unknown [id number] Unknown [id number] 2.16.840.1.299159.3.579. 2.531 Unknown [id number] 2.16.840.1.959436.3.579. 2.531 Social History Date Type Detail [facility] Start: 1975 Sex Assigned At Not on file [facility] Start: 04-18-2023 End: 01-29-2025 Sex Assigned At [facility] Start: 12-05-2022 End: 04-18-2023 Tobacco smoking status MDIS Never smoked tobacco [facility] Start: 12-05-2022 End: 04-18-2023 Tobacco use and exposure Smokeless tobacco non-user [facility] Start: 04-23-2023 End: 01-29-2025 Alcohol intake Ex-drinker (finding) [facility] Start: 04-18-2023 End: 01-29-2025 History of Social function [facility] Within the last year , have you been afraid of your partner or ex-partner? No [facility] Do you belong to any clubs or organizations such as zoroastrianism groups, unions, fraternal or athletic groups, or school groups? Yes [facility] Are you now , , , , never or living with a partner? [facility] How often to you hav e a drink containing alcohol? Never [facility] How many standard drinks containing alcohol do you have on a typical day? Patient does not drink [facility] (I/We) worried rola er (my/our) food would run out before (I/we) got money to buy more. Never true [facility] Start: 04-18-2023 Tobacco Comment Parents were h eavy smokers growing up [facility] Start: 11-08-2022 Alcohol Comment Caffeine intak e 1-2 cups per day pop [facility] Start: 1975 Sex Assigned At Female [facility] Start: 08-30-2022 Gender identity Identifies as female gender (finding) [facility] Start: 11-13-2022 Sexual orientation Heterosexual (fin ding) [facility] Start: 01-21-2015 Sex Female (finding) [facility] Start: 08-03-2023 End: 04-30-2024 Alcohol intake Current drinker of alcohol (finding) [facility] Start: 12-05-2022 Alcohol Comment once a year [facility] NEGATED: Highlighted rowStart: NINF History of tobacco use Passive smoker [facility] Clinical Notes 09-19-2021 to 02-17-2025 Telephone Encounter - Babita Shaw - 02/17/2025 9:54 AM EDTTelephone Encounter - Babita Shaw - 02/17/2025 9:54 AM Андрей Hinson MD - 01/29/2025 11:00 AM EDTPatient Instructions Note Date & Type Note Facility 02-17-2025 Telephone encounter Note Pt called and said that she is unable to get her AD[facility]ALL XR filled at [facility] because they said they are not getting it in any time soon. Pt does not know where else to get it. Please Advice [phone] [facility] 02-17-2025 Miscellaneous Notes Pt called and said that she is unable to get her ADDERALL XR filled at [facility] because they said they are not getting it in any time soon. Pt does not know where else to get it. Please Advice [phone] documented in this encounter [facility] 01-29-2025 History of Present illness Narrative Images from the original note were not included. Patient is here for a follow up. She is wondering if adderall can be increased back to 20 mg. She states she is having trouble staying awake and focused. She is also wondering if the Wellbutrin can be increased. She states that she did good on that dose. She needs refills of gabapentin, wellbutrin, and adderall. Subjective Elida Ruiz is a 49 y.o. female who presents for POTS, neuropathy, lumbar radic History of Present Illness The patient presents for evaluation of lightheadedness, headaches, sleep issues, and cold hands and feet. She reports an increase in lightheaded episodes, which she attributes to the current heat. Additionally, she mentions a rise in her blood pressure and an increase in headaches and migraines during this period. Her sleep pattern has changed from insomnia to hypersomnia over the past few months. She takes Adderall upon waking but feels it takes a long time to take effect. She has not needed to use Rozerem as her sleep has improved. However, she often feels the need to rest for a day after exertion, such as returning from a vacation. She wakes up feeling fatigued and could easily return to sleep. She has run out of Wellbutrin and is requesting a refill. She was previously on a higher dose of 300 mg and is contemplating increasing it to 150 mg. She experiences cold hands and feet, which are somewhat alleviated by gabapentin, taken three times daily. SOCIAL HISTORY: Sleep: Reports a change from insomnia to hypersomnia over the past few months. FAMILY HISTORY - 13-year-old daughter: Migraines, started recently, has had three episodes within the year. - Other 13-year-old daughter: Heat intolerance, instances during soccer. Negative for POTS in other family members. MEDICATIONS CURRENT MEDS: Adderall Dextroamphetamine 10 mg Gabapentin Three times a day PREVIOUS MEDS: Wellbutrin 75 mg, 25 mg, 300 mg Review of Systems Const: Denies appetite change, fever, chills. Allergy: Denies medication reaction. Ocular: Denies visual acuity change. ENT: Denies hearing change. Endoc: Denies weight loss. Resp: Denies dyspnoea, wheezing. Cardiac: Denies angina, palpitations. GI: Denies nausea, vomiting. Haem: Denies bleeding. : Denies incontinence. MSK: Denies arthralgias, joint oedema. Derm: Denies rash, hair loss. Neuro: Denies ataxia, tremor. Also see HPI for elements of ROS documented therein and for details of positive findings, which shall supersede the foregoing. Objective Blood pressure 142/86, height 5' 2.5 , weight 176 lb. Physical Exam GENERAL EXAMINATION Appearance: in no acute distress, well developed, well nourished. Head: normocephalic, atraumatic. Eyes: pupils equal, round, reactive to light and accommodation. Ears: normal. Mouth: mucosa moist. Throat: clear. Neck: neck supple, full range of motion, no cervical lymphadenopathy. Skin: no suspicious lesions, warm and dry. Heart: no murmurs, regular rate and rhythm, S1, S2 normal. Lungs: clear to auscultation bilaterally. Abdomen: normal, bowel sounds present, soft, nontender, nondistended. Extremities: no clubbing, cyanosis, or edema. NEUROLOGICAL EXAMINATION Mental Status: The patient is alert and oriented to person, place, and time. Except as noted, thought content, form, and comprehension was normal. Phonation, articulation, resonance, and prosody are normal. Cranial Nerves: Pupils were 4.0 millimeters, equal, round, and reactive to light and accommodation, both directly and consensually. Visual umaña were full by confrontation. There was no ptosis; extra-ocular movements were full; and there was no nystagmus. Funduscopic exam is normal. Masseters are of normal strength. Facial movement is normal. Hearing is grossly intact. There is no dysarthria. The gag reflex is equal bilaterally. Sternocleidomastoids and trapezii are of normal strength. The tongue protrudes in the midline. Motor: Muscle testing was performed in all four extremities, including at least swine extension field specialist, finger abductors, biceps, triceps, deltoid, toe flexors and extensors, tibialis anterior, triceps surae, quadriceps femoris, biceps femoris, and iliopsoases. Tone is normal. Muscle bulk is normal. Fasciculations are not seen . Pronator drift was not evident. Sensory: Sensation to touch, temperature, and vibration was normal in the arms, legs and face. Romberg is negative. Reflexes: Biceps, triceps, brachioradialis are 2/4 bilaterally. Patellar and Achilles reflexes are 2/4 bilaterally. Plantar responses were flexor bilaterally. Coordination: Dysmetria and dysdiadochokinesia are absent. Tremor is absent; dystonia is absent; chorea is absent. Gait And Station: Station and gait are normal. Apraxia and spasticity are not evident. Arm swing is normal. Toe, heel, and tandem walking are performed without difficulty. Musculoskeletal: Trigger-point tenderness was absent. There is no spasm of the trapezii or paraspinals. Results Assessment & Plan 1. Lightheadedness. She reports increased lightheaded episodes, particularly with heat and humidity. This is consistent with her history of POTS. 2. Headaches and migraines. She reports an increase in headaches and migraines, likely exacerbated by heat and possibly elevated blood pressure. 3. Sleep disturbances. She has experienced a shift from insomnia to hypersomnia over the past few months. She will continue taking Adderall 20 mg in the morning to help manage daytime sleepiness. 4. Medication management. She has run out of Wellbutrin and gabapentin. Prescriptions for Wellbutrin 150 mg and gabapentin have been renewed. Both medications will be sent to [facility] for a 90-day supply. 5. Cold hands and feet. She experiences cold hands and feet, which are somewhat alleviated by gabapentin. 6. I will continue the patient on Gabapentin to see if it helps with alleviating neuropathic pain symptoms. Side effects such as weight gain and increase swelling of the limbs was explained. 7. I counseled the patient on the possible side effects and interactions of medications. This clinical note was created utilizing [employer] documentation system. All information has been thoroughly reviewed, corrected as necessary, and authenticated by the provider to ensure accuracy and completeness. On occasion, [employer] documentation system erroneously drops words or replaces a spoken word with a similar sounding word. Please notify with any questions or concerns regarding this clinical note. documented in this encounter [facility] 10-22-2024 History of Present illness Narrative Images from the original note were not included. CHIEF COMPLAINT REASON FOR VISIT : Follow up HPI: Elida Ruiz is a 49 y.o. female who presents for a follow up. Patient states she was feeling dizzy and did not know if it was due to the wellbutrin. She states she has not started it back yet. Patient states she seen Dr. Chi for her BP stating she can't get it to go lower than 145/100. She states that he contributed it to being premenopausal. States that he did not change anything. She joined a gym and has been doing the treadmill and recumbent bike. She states she just had nerve burning done and her back has been good. States she is going to do physical therapy. She states she has had terrible insomnia. She states if she does not take the Adderall she cannot function. She states she will have several days going to bed at midnight and workout at 4 in the morning and then she will crash. She states she does have a headache right now. She states her BP was checked this morning it was 145/90. She states she was adjusting her Bystolic and did not make a difference. She states she still gets the numbness and tingling . Denies any other concerns. CURRENT MEDICATIONS: ALLERGIES/DISCONTINUE MEDICATIONS Current Outpatient Medications Medication Instructions Aimovig 140 mg, Every 28 days albuterol HFA 90 mcg/act inhaler 2 puffs, Inhalation, Every 4 hours PRN amphetamine-dextroamphetamine XR (Adderall XR) 10 MG 24 hr capsule 10 mg, Oral, Every morning, Do not crush or chew. amphetamine-dextroamphetamine XR (Adderall XR) 20 MG 24 hr capsule 20 mg, Oral, Every morning, Do not crush or chew. atorvastatin (Lipitor) 20 MG tablet TAKE 1 TABLET AT BEDTIME buPROPion XL (WELLBUTRIN XL) 300 mg, Oral, Every morning, Do not crush, chew, or split. cholecalciferol (VITAMIN D-3) 20,000 Units, Daily DULoxetine (Cymbalta) [address] capsule TAKE 3 CAPSULES DAILY gabapentin (NEURONTIN) 300 mg, Oral, 3 times daily naproxen (NAPROSYN) 500 mg, 2 times daily with meals nebivolol (BYSTOLIC) 20 mg, Daily Trokendi XR 200 MG capsule sustained-release 24 hr 1 capsule, Oral, Nightly Allergies Allergen Reactions Cephalosporins Other Reaction(s): nausea/vomiting Other reaction(s): nausea/vomiting Penicillins Hives and Rash Other Reaction(s): Other vomiting and rash Other Reaction(s): other Sulfamethoxazole-Trimethoprim Rash Other Reaction(s): Other There are no discontinued medications. PAST MEDICAL HISTORY: SURGICAL/SOCIAL/FAMILY HISTORY DEPRESSION SCREEN: Past Medical History: Diagnosis Date Abdominal pain 07/18/2010 Acute left-sided low back pain with left-sided sciatica Acute meniscal tear, medial 11/15/2022 Acute non-recurrent pansinusitis Acute pain of right knee Acute pansinusitis 01/20/2021 ADHD (attention deficit hyperactivity disorder) ([facility]) Allergic rhinitis Annular tear of lumbar disc Anxiety AOM (acute otitis media) Arthritis Asthma ([facility]) Benign lipomatous neoplasm of skin and subcutaneous tissue of unspecified sites BPPV (benign paroxysmal positional vertigo), unspecified laterality Chronic cough 01/06/2021 Chronic sinusitis COVID 06/2020 Dehydration 08/23/2021 Depression ([facility]) Dizziness and giddiness 05/31/2007 Eczema Fall ER fell ankles rolled Xray left, no fracture Gastro-esophageal reflux disease without esophagitis Grief ([facility]) History of being hospitalized patient has never been hospitalized for mental health History of being hospitalized ER fell 2-1-18 ankles rolled.Xray left, no fracture. History of irritable bowel syndrome 04/20/2015 Hypermobility syndrome Hypertension ([facility]) IBS (irritable bowel syndrome) Insomnia 08/11/2020 Internal derangement of right knee 07/18/2019 Obstructive sleep apnea Other infectious disease DENIES H/O BLOOD BORNE DISEASE Otitis media 01/20/2021 Pain in left knee 11/15/2022 Pain in right knee 04/05/2016 POTS (postural orthostatic tachycardia syndrome) Restless leg S/P abdominal hysterectomy Sacroiliitis ([facility]) Sequelae of other specified infectious and parasitic diseases 06/21/2021 Vesico-ureteral reflux Past Surgical History: Procedure Laterality Date SECTION, LOW TRANSVERSE 2012 CHOLECYSTECTOMY 02/2010 CYSTOSCOPY 02/13/2017 cystogram - Dr Moreno D&C FIRST TRIMESTER / TX INCOMPLETE / MISSED / SEPTIC / INDUCED 2009 LOOP RECORDER IMPLANT 10/2014 LOOP RECORDER REMOVAL 01/30/2018 NERVE BLOCK 2013 facet joint AK KNEE SCOPE,CLEAN/DRAIN Right 05/25/2015 DR GUIDO [place] KNEE SCOPE,CLEAN/DRAIN Left 10/12/2015 DR GUIDO SEPTOPLASTY 11/2009 [facility];Disease:Chronic sinusitis TOTAL ABDOMINAL HYSTERECTOMY W/ BILATERAL SALPINGOOPHORECTOMY 01/30/2017 Dr. Vallecillo Social History Tobacco Use Smoking status: Never Passive exposure: Never Smokeless tobacco: Never Tobacco comments: Parents were heavy smokers growing up Vaping Use Vaping status: Never Used Substance Use Topics Alcohol use: Not Currently Comment: Caffeine intake 1-2 cups per day pop Drug use: Never Family History Problem Relation Name Age of Onset Anxiety disorder Mother Una Breast cancer Mother Una metastatic Mental illness Mother Una Arthritis Mother Una Cancer Mother Una Hypertension Mother Una Miscarriages / Stillbirths Mother Una Alcohol abuse Father Demetrius Lung cancer Father Demetrius Cancer Father Demetrius Heart disease Father Demetrius Hypertension Father Demetrius Cervical cancer Niece Cancer Maternal Grandmother Mateo Stroke Paternal Grandfather Judd Diabetes Mother's Sister Jyoti Hearing loss Mother's Sister Jyoti Psoriasis Neg Hx Depression: Not at risk (07/30/2024) Received from [facility] PHQ-2 Patient Health Questionnaire-2 Score: 0 REVIEW OF SYMPTOMS: Review of Systems Constitutional: Negative for chills, diaphoresis, fatigue and fever. HENT: Negative for ear pain, tinnitus and trouble swallowing. Eyes: Negative for photophobia and visual disturbance. Respiratory: Negative for cough and shortness of breath. Cardiovascular: Negative for palpitations and leg swelling. Gastrointestinal: Negative for abdominal pain and nausea. Genitourinary: Negative for difficulty urinating and urgency. Musculoskeletal: Negative for arthralgias, back pain, myalgias, neck pain and neck stiffness. Neurological: Positive for numbness and headaches. Negative for tremors, weakness and light-headedness. Psychiatric/Behavioral: Negative for agitation, confusion and suicidal ideas. OBJECTIVE: 07/21/2024 11:26 AM 05/07/2024 9:37 AM 05/05/2024 9:41 AM Vitals BMI 31.68 kg/m2 31.86 kg/m2 BSA (m2) 1.88 m2 1.88 m2 Systolic 144 138 Diastolic 100 82 Height (in) 5' 2.5 5' 2.5 Weight (lb) 176 177 Visit Report Report Report Report EXAM: Neurological Exam Mental Status Awake, alert and oriented to person, place and time. Oriented to person, place and time. Recent and remote memory are intact. Speech is normal. Language is fluent with no aphasia. Attention and concentration are normal. Cranial Nerves CN II: Visual acuity is normal. Visual umaña full to confrontation. CN III, IV, : Extraocular movements intact bilaterally. Normal lids and orbits bilaterally. Pupils equal round and reactive to light bilaterally. CN V: Facial sensation is normal. CN VII: Full and symmetric facial movement. CN VIII: Hearing is normal. CN XII: Tongue midline without atrophy or fasciculations. Motor Normal muscle bulk throughout. Normal muscle tone. Right Left Wrist flexion 5 5 Wrist extension 5 5 Right Left Deltoid 5 5 Biceps 5 5 Triceps 5 5 Wrist flexor 5 5 Wrist extensor 5 5 Glutei 5 5 Iliopsoas 5 5 Quadriceps 5 5 Gastrocnemius 5 5 Anterior tibialis 5 5 Posterior tibialis 5 5 Sensory Light touch is normal in upper and lower extremities. Pinprick is normal in upper and lower extremities. Vibration is normal in upper and lower extremities. Reflexes Right Left Brachioradialis 2+ 2+ Biceps 2+ 2+ Patellar 2+ 2+ Achilles 2+ 2+ Right Plantar: downgoing Left Plantar: downgoing Right pathological reflexes: Agueda's absent. Ankle clonus absent. Left pathological reflexes: Agueda's absent. Ankle clonus absent. Coordination [id number], rapid alternating movements and [id number] normal bilaterally without dysmetria. Gait Normal casual, toe, heel and tandem gait. Romberg is absent. PROCEDURE: NONE ASSESSMENT AND PLAN: Elida Ruiz is a 49 year old female with a sensory disturbance in the distal lower extremities manifested predominantly as numbness and paresthesia in her bilateral feet which have been progressive over the past 8 months, Possible etiologies would include a generalized process affecting large fibers such as peripheral neuropathy, lumbar radiculopathy, or lumbosacral plexopathy. I cannot exclude a small fiber neuropathy contributing to predominantly sensory symptoms in the lower extremities, I cannot exclude it medical condition or metabolic process contributing to peripheral nerve dysfunction including polyneuropathy. I do feel that she should either try alternative pain measures such as CBD/THC combination and see pain management. Diagnoses and all orders for this visit: Primary insomnia - ramelteon (Rozerem) 8 MG tablet; Take 1 tablet (8 mg) by mouth at bedtime Migraine without aura and without status migrainosus, not intractable (CMS/HCC) POTS (postural orthostatic tachycardia syndrome) - buPROPion (Wellbutrin) 75 MG tablet; Take 1 tablet (75 mg) by mouth Daily ADHD, predominantly inattentive type (CMS/HCC) ADHD, predominantly inattentive type (CMS/HCC) Continue with adderall 10 mg daily to help with inattention and focus. Obtained OARRS report and personally reviewed and reviewed with the patient Migraine without aura and without status migrainosus, not intractable (CMS/HCC) Continue Trokendi 200 mg capsule at bed for migraine prevention. POTS (postural orthostatic tachycardia syndrome) Start Wellbutrin 75 mg tablet once daily. Small fiber neuropathy Continue gabapentin (Neurontin) 300 MG capsule; Take 1 capsule (300 mg) by mouth in the morning and 1 capsule (300 mg) in the evening and 1 capsule (300 mg) before bedtime for neuropathic pain. Obtained OARRS report and personally reviewed and reviewed with the patient I counseled the patient on the possible side effects and interactions of medications. Follow up 3 months. This note was scribed by MATT Dobbins acting under the direction of Maryse Hinson MD. The content has been reviewed and confirmed for accuracy by Maryse Hinson MD documented in this encounter [facility] 10-22-2024 History of Present illness Narrative [facility] [address] [place] [address] Patient: Elida Ruiz Sex: female : 1975 Age: 49 y.o. PCP: Yisel Lowry MD 10/22/2024 Elida Ruiz is here for a(n) post procedure follow up 08/29/2024 right L 4/, 5/ radiofrequency ablation and 09/19/2024 left L 4/5, 5/ radiofrequency ablation with 90% improvement overall. Date of onset of pain: years worse 2021 , pain has lasted greater than 3 months. Pain scale before treatment: 9/10 Percentage and duration of relief after treatment: 90% Pain scale after treatment: 1/10 SI joint pain can reach 4/10 Chief Complaint Patient presents with Back Pain HPI: PT (aquatic) from 03/27/2024 -04/22/2024 with 50% relief of bilateral bursitis symptoms. BACK 04/04/2024 caudal epidural steroid injection with 100% relief of leg pain. Lumbar pain remains unchanged Pain scale before treatment: 5/10 Pain scale after treatment: 0/10 LLE, 05/30/2024 bilateral L4/5 L5/S1 medial branch block with 100% relief x 2 weeks. 07-25-2024 Bilateral L4/5, 5/1 Medial Branch Block with 100% relief x 1 day 08/29/2024 right L 4/, 5/1 radiofrequency ablation and 09/19/2024 left L 4/5, 5/1 radiofrequency ablation with 90% improvement overall. Back Pain This is a chronic problem. The current episode started more than 1 year ago (Mar 2023 exacerbation of chronic low back pain). The problem occurs every several days (with activity). The problem has been gradually improving since onset. The pain is present in the sacro-iliac, lumbar spine and gluteal. The quality of the pain is described as aching. The pain does not radiate. Pain scale: pain ranges from 1-4/10 on a daily basis. The pain is mild. Worse during: activity. The symptoms are aggravated by sitting, standing, bending, twisting and coughing (walking, stairs, lifting, pushing, pulling, sneezing, transitioning). Stiffness is present All day. Associated symptoms include numbness (neuropathy in fingers and toes), tingling (neuropathy in fingers and toes) and weakness. Pertinent negatives include no bladder incontinence, chest pain, fever or leg pain. Risk factors include obesity. She has tried NSAIDs, muscle relaxant, home exercises, heat and ice (Gabapentin, Tramadol, Naproxen, Prev Injs 2022, Prev PT 2021, Lido Patch, Tens Unit, Biofreeze) for the symptoms. The treatment provided mild relief. The effect of pain on patient's ADLS: Mild Impairment. Past Medical History: Diagnosis Date ADHD Annular tear of lumbar disc Anxiety AOM (acute otitis media) Asthma Back pain Benign lipomatous neoplasm of skin and subcutaneous tissue BPPV (benign paroxysmal positional vertigo) Cardiomyopathy, peripartum COVID Depression Eczema Cristi-Danlos syndrome GERD (gastroesophageal reflux disease) Hyperlipidemia Hypermobility syndrome Hypertension IBS (irritable bowel syndrome) Joint pain Rt Knee Low back pain Migraines Nephropathy of one kidney due to vesicoureteral reflux Neuropathy Observed sleep apnea Pansinusitis Pneumonia 2020 POTS (postural orthostatic tachycardia syndrome) Restless leg Rhinitis Sacroiliitis Sinusitis, chronic Vesico-ureteral reflux Visual impairment Past Surgical History: Procedure Laterality Date ABDOMINAL SURGERY BLADDER SURGERY SECTION twins CHOLECYSTECTOMY COLONOSCOPY CYSTOSCOPY DILATION AND CURETTAGE OF UTERUS EGD HYSTERECTOMY INJECTION BLOCK EPIDURAL CAUDAL STEROID N/A 04/04/2024 Performed by Pj Cabrales MD at [facility] INJECTION BLOCK NERVE MEDIAL BRANCH Bilat L 4/5, 5/1 Bilateral 07/25/2024 Performed by Pj Cabrales MD at [facility] INJECTION BLOCK NERVE MEDIAL BRANCH BIlat L 4/5, 5/1 Bilateral 05/30/2024 Performed by Pj Cabrales MD at [facility] INSERTION LOOP RECORDER 2014 KNEE ARTHROSCOPY W/ MENISCECTOMY Bilateral also had a lateral release on right knee RADIOFREQUENCY ABLATION SPINAL Left L 4/5, 5/1 Left 09/19/2024 Performed by Pj Cabrales MD at [facility] RADIOFREQUENCY ABLATION SPINAL Right L 4/5, 5/1 Right 08/29/2024 Performed by Pj Cabrales MD at [facility] REMOVAL LOOP RECORDER 2018 SINUS SURGERY x 2 SKIN BIOPSY benign Allergies Allergen Reactions Cephalosporins Other reaction(s): nausea/vomiting Bactrim [Sulfamethoxazole-Trimethoprim] Rash Penicillins Hives and Rash Family History Problem Relation Age of Onset Mental illness Mother Cancer Mother Arthritis Mother Breast cancer Mother Hypertension Mother Miscarriages / Stillbirths Mother Anxiety disorder Mother Lung disease Father Cancer Father Alcohol abuse Father Clotting disorder Father Heart disease Father Hypertension Father Lung cancer Father Hearing loss Maternal Aunt Diabetes Maternal Aunt Cancer Maternal Grandmother Colon cancer Maternal Grandmother Ovarian cancer Maternal Grandmother Pancreatic cancer Maternal Grandmother Diabetes Maternal Grandfather Heart disease Maternal Grandfather Hypertension Maternal Grandfather Stroke Paternal Grandfather Heart disease Paternal Grandfather Hypertension Paternal Grandfather Cancer Niece Social History Socioeconomic History Marital status: Spouse name: Not on file Number of children: Not on file Years of education: Not on file Highest education level: Not on file Occupational History Not on file Tobacco Use Smoking status: Never Smokeless tobacco: Never Vaping Use Vaping status: Never Used Substance and Sexual Activity Alcohol use: Not Currently Drug use: Never Sexual activity: Defer Other Topics Concern Not on file Social History Narrative Not on file Social Drivers of Health Financial Resource Strain: Low Risk (04/18/2023) Received from [facility] Overall Financial Resource Strain (CARDIA) Difficulty of Paying Living Expenses: Not hard at all Food Insecurity: No Food Insecurity (10/22/2024) Hunger Screening Food Insecurity - Worry: Never True Food Insecurity - Inability: Never True Transportation Needs: No Transportation Needs (04/18/2023) Received from [facility] PRAPARE - Transportation Lack of Transportation (Medical): No Lack of Transportation (Non-Medical): No Physical Activity: Patient Declined (04/18/2023) Received from [facility] Exercise Vital Sign Days of Exercise per Week: Patient declined Minutes of Exercise per Session: Patient declined Stress: Patient Declined (04/18/2023) Received from [facility] [employer] - Occupational Stress Questionnaire Feeling of Stress : Patient declined Social Connections: Socially Integrated (04/18/2023) Received from [facility] Social Connection and Isolation Panel [NHANES] Frequency of Communication with Friends and Family: Three times a week Frequency of Social Gatherings with Friends and Family: Once a week Attends Evangelical Services: More than 4 times per year Active Member of Clubs or Organizations: Yes Attends Club or Organization Meetings: 1 to 4 times per year Marital Status: Interpersonal Safety: Not At Risk (07/30/2024) Received from [facility] Humiliation, Afraid, Rape, and Kick questionnaire Fear of Current or Ex-Partner: No Emotionally Abused: No Physically Abused: No Sexually Abused: No Housing Instability: Low Risk (04/18/2023) Received from [facility] Housing Stability Vital Sign Unable to Pay for Housing in the Last Year: No Number of Places Lived in the Last Year: 1 Unstable Housing in the Last Year: No Review of Systems Constitutional: Negative. Negative for fever. HENT: Negative. Eyes: Negative. Respiratory: Negative. Cardiovascular: Negative for chest pain. Gastrointestinal: Negative. Endocrine: Negative. Genitourinary: Negative. Negative for bladder incontinence. Musculoskeletal: Positive for back pain. Skin: Negative. Neurological: Positive for tingling (neuropathy in fingers and toes), weakness and numbness (neuropathy in fingers and toes). Vital Signs: BP (!) 145/98 (BP Site: Left Arm, BP Postition: Sitting) Pulse 80 Resp 20 Physical Exam: GENERAL - Healthy patient that appears stated age. HEENT - Normocephalic / Atraumatic, Extraoccular movements intact, trachea midline, thyroid within normal limits. CV - pulse regular, Warm extremities with appropriate color of nailbeds. RESP - No obvious wheezing, No Shortness of Breath, No overexertion response to exam maneuvers. COORDINATION - remains intact. PSYCH - Alert and Oriented x4, Attentive and appropriate, constitutionally normal, displays normal mood and affect per situation, answered questions appropriately during examination, demonstrated appropriate attention during discussion, demonstrated appropriate cognitive reasoning and understanding of the medical condition by asking appropriate questions regarding the diagnosis and risks/benefits/alternatives of treatment modalities. No obvious deficits in memory, reasoning, or intellect. Lumbar: SKIN - No rashes or bruising in the area of the patient s pain. LYMPH NODES - demonstrate no obvious enlargement. EXTREMITIES - Lower extremities are warm, with minimal edema and palpable pulses. Improved tenderness to palpation noted in the lumbar spine and paraspinal musculature. Mild pain is elicited with flexion, extension, and lateral rotation of the lumbar spine. Range of motion is diminished with these motions due to pain. Facet palpation is noted to be painful and facet loading maneuvers elicit pain that is concordant with the patient s normal pain complaints. Some muscle spasm is noted in the overlying musculature. STRENGTH - noted to be 5 out of 5 all muscle groups bilateral lower extremities including muscles involving hip flexion and abduction, knee flexion and extension, as well as foot dorsiflexion and plantarflexion. No notable atrophy, fasciculations or spasm. SENSORY - No notable sensory deficits in the bilateral lower extremities to touch or pinprick in all dermatomal distributions. Straight Leg Raise is negative bilaterally. Tenderness to palpation is noted over the Bilateral SacroIliac Joint: Fabere sign (Daren's Test) is significantly positive, as is compression and distraction of the sacroiliac joints, which is consistent with some of the patient's normal pain. Gait is normal. Assessment/Treatment Plan: Elida was seen today for back pain. Diagnoses and all orders for this visit: Lumbar spondylosis - Ambulatory referral to Physical Therapy; Future Disorder of sacrum - Ambulatory referral to Physical Therapy; Future Physical/Aquatic Therapy - It is felt that the patient will benefit from a course of physical therapy focusing on the above mentioned diagnosis. We will recommend that the physical therapist fully evaluate and treat at their discretion considering the modalities that are most useful for the condition being treated. This may include modalities of comfort including moist heat, ultrasound, and TENS therapy. It may also utilize manual therapy and myofascial release for the myofascial component of the patient s pain. It will likely advance to modalities aimed at stabilizing and strengthing the target area while improving range of motion as well. We are also requesting that the physical therapist send notes that will keep our clinic updated to the patient s progress. Follow up 3 months The medications prescribed have been reviewed for medication interactions/contraindications and/or for upcoming procedures: continue current medication regimen without any changes. DISCUSSION: Treatment options discussed with patient and all questions answered to patient's satisfaction. Discussed the rules and regulations surrounding prescription of opioids and compliance at length. Failure to follow the rules and regulation will result in tapering and discontinuation of medications if applicable. Prescribed medication that requires intensive monitoring for toxicity We do not currently prescribe any controlled substance from this practice. It does appear that the patient benefited from the previous injection and the benefit has continued through this visit. At this time, we will monitor the patient s symptoms from an interventional standpoint and consider another injection in the future if the patient s symptoms return or intensify severely. The patient was made aware that they should call if symptoms worsen or if their pain begins to have a negative impact on their quality of life and activities of daily living again. The spine model was demonstrated and MRI was reviewed and used to explain the condition. OARRS: Reviewed. Scribe Statement: Saida Martinez CNA, scribed for and in the presence of MAURICIO BAGLEY PA-C who performed the above service. Saida Bowman CNA 10/22/24 0912 Mauricio Bagley PA-C 10/22/24 0939 documented in this encounter [facility] 08-06-2024 History of Present illness Narrative [facility] [address] [place] [address] Patient: Elida Ruiz Sex: female : 1975 Age: 49 y.o. PCP: Yisel Lowry MD 08/06/2024 Elida Ruiz is here for a(n) post procedure follow up 07-25-2024 Bilateral L4/5, 5/1 Medial Branch Block with 100% relief x 1 day. Date of onset of pain: 2022 , pain has lasted greater than 3 months. Pain scale before treatment: 4/10 Pre-op pain score: 4/10 Post-op pain score: 0/10 2 hour post-op pain score: 0/10 4 hour post-op pain score: 0/10 Percentage and duration of relief after treatment: 100% relief x 1 day and 0% now Pain scale after treatment: 0/10 Chief Complaint Patient presents with Back Pain HPI: PT (aquatic) from 03/27/2024 -04/22/2024 with 50% relief of bilateral bursitis symptoms. BACK 04/04/2024 caudal epidural steroid injection with 100% relief of leg pain. Lumbar pain remains unchanged Pain scale before treatment: 5/10 Pain scale after treatment: 0/10 LLE, 05/30/2024 bilateral L4/5 L5/S1 medial branch block with 100% relief x 2 weeks. 07-25-2024 Bilateral L4/5, 5/1 Medial Branch Block with 100% relief x 1 day and then pain progressively returned and 0% relief now. Back Pain This is a chronic problem. The current episode started more than 1 year ago (Mar 2023 exacerbation of chronic low back pain). The problem occurs constantly (with activity). The problem is unchanged. The pain is present in the sacro-iliac, lumbar spine and gluteal (into hips). The quality of the pain is described as aching and stabbing. Radiates to: bilateral hips. The pain is at a severity of 8/10 (pain 4/10 currently and can reach 8/10). The pain is mild. Worse during: activity. The symptoms are aggravated by sitting, standing, bending, twisting and coughing (walking, stairs, lifting, pushing, pulling, sneezing, transitioning). Stiffness is present All day. Associated symptoms include numbness (neuropathy in fingers and toes), tingling (neuropathy in fingers and toes) and weakness. Pertinent negatives include no bladder incontinence, chest pain, fever or leg pain. Risk factors include obesity. She has tried NSAIDs, muscle relaxant, home exercises, heat and ice (Gabapentin, Tramadol, Naproxen, Prev Injs 2022, Prev PT 2021, Lido Patch, Tens Unit, Biofreeze) for the symptoms. The treatment provided mild relief. The effect of pain on patient's ADLS: Moderate Impairment. Past Medical History: Diagnosis Date ADHD Annular tear of lumbar disc Anxiety AOM (acute otitis media) Asthma Back pain Benign lipomatous neoplasm of skin and subcutaneous tissue BPPV (benign paroxysmal positional vertigo) Cardiomyopathy, peripartum COVID Depression Eczema Cristi-Danlos syndrome GERD (gastroesophageal reflux disease) Hyperlipidemia Hypermobility syndrome Hypertension IBS (irritable bowel syndrome) Joint pain Rt Knee Low back pain Migraines Nephropathy of one kidney due to vesicoureteral reflux Neuropathy Observed sleep apnea Pansinusitis Pneumonia June/Cov2020 POTS (postural orthostatic tachycardia syndrome) Restless leg Rhinitis Sacroiliitis (CMS-HCC) Sinusitis, chronic Vesico-ureteral reflux Visual impairment Past Surgical History: Procedure Laterality Date ABDOMINAL SURGERY BLADDER SURGERY SECTION twins CHOLECYSTECTOMY COLONOSCOPY CYSTOSCOPY DILATION AND CURETTAGE OF UTERUS EGD HYSTERECTOMY INJECTION BLOCK EPIDURAL CAUDAL STEROID N/A 04/04/2024 Performed by Pj Cabrales MD at [facility] INJECTION BLOCK NERVE MEDIAL BRANCH Bilat L 4/5, 5/1 Bilateral 07/25/2024 Performed by Pj Cabrales MD at [facility] INJECTION BLOCK NERVE MEDIAL BRANCH BIlat L 4/5, 5/1 Bilateral 05/30/2024 Performed by Pj Cabrales MD at [facility] INSERTION LOOP RECORDER 2014 KNEE ARTHROSCOPY W/ MENISCECTOMY Bilateral also had a lateral release on right knee REMOVAL LOOP RECORDER 2017 SINUS SURGERY x 2 SKIN BIOPSY benign Allergies Allergen Reactions Cephalosporins Other reaction(s): nausea/vomiting Bactrim [Sulfamethoxazole-Trimethoprim] Rash Penicillins Hives and Rash Family History Problem Relation Age of Onset Mental illness Mother Cancer Mother Arthritis Mother Breast cancer Mother Hypertension Mother Miscarriages / Stillbirths Mother Anxiety disorder Mother Lung disease Father Cancer Father Alcohol abuse Father Clotting disorder Father Heart disease Father Hypertension Father Lung cancer Father Hearing loss Maternal Aunt Diabetes Maternal Aunt Cancer Maternal Grandmother Colon cancer Maternal Grandmother Ovarian cancer Maternal Grandmother Pancreatic cancer Maternal Grandmother Diabetes Maternal Grandfather Heart disease Maternal Grandfather Hypertension Maternal Grandfather Stroke Paternal Grandfather Heart disease Paternal Grandfather Hypertension Paternal Grandfather Cancer Niece Social History Socioeconomic History Marital status: Spouse name: Not on file Number of children: Not on file Years of education: Not on file Highest education level: Not on file Occupational History Not on file Tobacco Use Smoking status: Never Smokeless tobacco: Never Vaping Use Vaping status: Never Used Substance and Sexual Activity Alcohol use: Not Currently Drug use: Never Sexual activity: Defer Other Topics Concern Not on file Social History Narrative Not on file Social Drivers of Health Financial Resource Strain: Low Risk (04/18/2023) Received from [facility] Overall Financial Resource Strain (CARDIA) Difficulty of Paying Living Expenses: Not hard at all Food Insecurity: No Food Insecurity (08/06/2024) Hunger Screening Food Insecurity - Worry: Never True Food Insecurity - Inability: Never True Transportation Needs: No Transportation Needs (04/18/2023) Received from [facility] PRAPARE - Transportation Lack of Transportation (Medical): No Lack of Transportation (Non-Medical): No Physical Activity: Patient Declined (04/18/2023) Received from [facility] Exercise Vital Sign Days of Exercise per Week: Patient declined Minutes of Exercise per Session: Patient declined Stress: Patient Declined (04/18/2023) Received from [facility] [employer] - Occupational Stress Questionnaire Feeling of Stress : Patient declined Social Connections: Socially Integrated (04/18/2023) Received from [facility] Social Connection and Isolation Panel [NHANES] Frequency of Communication with Friends and Family: Three times a week Frequency of Social Gatherings with Friends and Family: Once a week Attends Evangelical Services: More than 4 times per year Active Member of Clubs or Organizations: Yes Attends Club or Organization Meetings: 1 to 4 times per year Marital Status: Interpersonal Safety: Not At Risk (07/30/2024) Received from [facility] Humiliation, Afraid, Rape, and Kick questionnaire Fear of Current or Ex-Partner: No Emotionally Abused: No Physically Abused: No Sexually Abused: No Housing Instability: Low Risk (04/18/2023) [facility] Housing Stability Vital Sign Unable to Pay for Housing in the Last Year: No Number of Places Lived in the Last Year: 1 Unstable Housing in the Last Year: No Review of Systems Constitutional: Negative. Negative for fever. HENT: Negative. Eyes: Negative. Respiratory: Negative. Cardiovascular: Negative for chest pain. Gastrointestinal: Negative. Endocrine: Negative. Genitourinary: Negative. Negative for bladder incontinence. Musculoskeletal: Positive for back pain. Skin: Negative. Neurological: Positive for tingling (neuropathy in fingers and toes), weakness and numbness (neuropathy in fingers and toes). Vital Signs: BP (!) 162/104 (BP Site: Right Arm, BP Postition: Sitting) Pulse 85 Resp 18 SpO2 98% Physical Exam: GENERAL - Healthy patient that appears stated age. HEENT - Normocephalic / Atraumatic, Extraoccular movements intact, trachea midline, thyroid within normal limits. CV - pulse regular, Warm extremities with appropriate color of nailbeds. RESP - No obvious wheezing, No Shortness of Breath, No overexertion response to exam maneuvers. COORDINATION - remains intact. PSYCH - Alert and Oriented x4, Attentive and appropriate, constitutionally normal, displays normal mood and affect per situation, answered questions appropriately during examination, demonstrated appropriate attention during discussion, demonstrated appropriate cognitive reasoning and understanding of the medical condition by asking appropriate questions regarding the diagnosis and risks/benefits/alternatives of treatment modalities. No obvious deficits in memory, reasoning, or intellect. Lumbar: SKIN - No rashes or bruising in the area of the patient s pain. LYMPH NODES - demonstrate no obvious enlargement. EXTREMITIES - Lower extremities are warm, with minimal edema and palpable pulses. Tenderness to palpation noted in the lumbar spine and paraspinal musculature. Pain is elicited with flexion, extension, and lateral rotation of the lumbar spine. Range of motion is diminished with these motions due to pain. Facet palpation is noted to be painful and facet loading maneuvers elicit pain that is concordant with the patient s normal pain complaints. Some muscle spasm is noted in the overlying musculature. STRENGTH - noted to be 5 out of 5 all muscle groups bilateral lower extremities including muscles involving hip flexion and abduction, knee flexion and extension, as well as foot dorsiflexion and plantarflexion. No notable atrophy, fasciculations or spasm. SENSORY - No notable sensory deficits in the bilateral lower extremities to touch or pinprick in all dermatomal distributions. Straight Leg Raise is negative bilaterally. Gait is normal. Assessment/Treatment Plan: Elida was seen today for back pain. Diagnoses and all orders for this visit: Lumbar spondylosis - Case request operating room: RADIOFREQUENCY ABLATION SPINAL Right L 4/5,5/1 - Case request operating room: RADIOFREQUENCY ABLATION SPINAL Left L 4/5,5/ Disorder of sacrum Right then Left L4/5, 5/ Facet Radiofrequency Ablation - under fluoroscopy It is hopeful that the described procedure will provide symptomatic pain relief. It is felt to be medically necessary noting that the patient has tried and failed more conservative modalities of therapy and this is the next most appropriate step. The procedure was described in detail to the patient as well as the potential benefits of pain reduction alongside risks of the procedure and alternatives. Risks were described as including, but not limited to bleeding, infection, nerve damage, spinal cord injury, paralysis, stroke, dural puncture headache, and medication reaction. The patient expressed understanding regarding the risks and benefits and wishes to proceed. The patient has undergone diagnostic injections targeting the above mentioned facet joints. There was significant improvement in the patient s pain and functionality for the duration of the local anesthetic (approximately 2 hours) with return of the original symptoms after that time. For this reason, it is felt that the patient is a good candidate to undergo thermal Radio Frequency Lesioning of the Medial Branch Nerves at 80 degrees celsius for 90 seconds. This will effectively denervate the arthritic facet joints previously targeted with the diagnostic injection. It is noted that the procedure often requires 3-4 weeks to provide benefit, but the benefit usually lasts for approximately 1 year and can then be repeated if necessary. Patients undergoing this procedure often have mild post-procedural pain for 3-4 days which is generally relieved with application of heat and over the counter pain relievers. Follow up 4 weeks after procedure The medications prescribed have been reviewed for medication interactions/contraindications and/or for upcoming procedures: continue current medication regimen without any changes. DISCUSSION: Treatment options discussed with patient and all questions answered to patient's satisfaction. Discussed the rules and regulations surrounding prescription of opioids and compliance at length. Failure to follow the rules and regulation will result in tapering and discontinuation of medications if applicable. Prescribed medication that requires intensive monitoring for toxicity We do not currently prescribe any controlled substance from this practice. The spine model was demonstrated and MRI was reviewed and used to explain the condition. Chronic conditions not treated during this visit that affected my overall medical decision making: Comorbidity- Obesity The patient does have a comorbid condition of obesity. This will be taken into account in that obesity will contribute to certain pain conditions. It can contribute to pain from degenerative disc disease as well as osteoarthritis of the joints. Many neuropathic symptoms are also amplified due to axial spine loading. Special benefits will also need to be given to procedures. Many procedures are technically more difficult in the light of severe obesity. I will also consider the possibility of undiagnosed obstructive sleep apnea (which often accompanies obesity) when prescribing any narcotic medications. I will weigh the risks and benefits and fully discuss them with the patient for these reasons. Comorbidity- Sleep Apnea The patient has a history of obstructive sleep apnea. Due to this reason, special consideration will need to be given to the prescription of narcotics in that they may depress respiratory function and lead to respiratory insufficiency or failure. Consideration will also be given to procedure safety in that sedation is used in the outpatient setting for any planned procedure. These records will be available to the anesthesiologist to tailor a safe anesthetic for the procedure. The patient will also be observed closely in the recovery area and may even require admission if they remain overly sedated for an extended period of time and cannot maintain an airway. These preparations will be made as necessary. Comorbidity- Anxiety The patient describes a significant issue with anxiety. Although treatment is helpful with this regard, the patient is likely need special accommodation due to this condition. For this reason, necessary procedures will likely need to be performed under sedation to decrease procedural anxiety. Comorbidity- Depression The patient has an ongoing issue with depression and currently feels these symptoms are under control and further feels that appropriate pain management would also help these symptoms. The patient is optimistic about the treatment plan we have laid out. We will continue to monitor these symptoms and remain cogniscent that they may affect the patients perceived improvement from the treatment and willingness to pursue further treatment. At this time the patient appears to be mentally and emotionally stable to undergo procedural and medical therapy. If any warning signs become present, I may refer the patient to a mental health professional for further evaluation. OARRS: Reviewed. Scribe Statement: Saida Martinez CNA, scribed for and in the presence of MAURICIO BAGLEY PA-C who performed the above service. Provider Statement: MAURICIO Martinez PA-C, personally performed the services described in the documentation, as scribed by Saida Bowman CNA in my presence, and it is both accurate and complete. Saida Bowman CNA 08/06/24 0855 Mauricio Bagley PA-C 08/06/24 0907 documented in this encounter [facility] 08-06-2024 Instructions Saida Bowman CNA - 08/06/2024 8:45 AM EST Radiofrequency Ablation (RFA) Radiofrequency ablation (or RFA) is a procedure used to reduce pain. An electrical current produced by a radio wave is used to heat up a small area of nerve tissue, thereby decreasing pain signals from that specific area. Which Conditions Are Treated With Radiofrequency Ablation? RFA can be used to help patients with chronic (long-lasting) back and neck pain and pain related to the degeneration of joints from arthritis. How Long Does Pain Relief from Radiofrequency Ablation Last? The degree of pain relief varies, depending on the cause and location of the pain. Pain relief from RFA can last from six to 12 months and in some cases, relief can last for years. More than 70% of patients treated with RFA experience pain relief. Is Radiofrequency Ablation Safe? RFA has proven to be a safe and effective way to treat some forms of pain. It also is generally well-tolerated, with very few associated complications. There is a slight risk of infection and bleeding at the insertion site. Your doctor can advise you about your particular risk. Can I Resume My Normal Activities After Radiofrequency Ablation? You will have a few restrictions immediately following radiofrequency ablation: Do not drive or operate machinery for at least 24 hours after the procedure. You may resume your normal diet and prescribed medications (including blood thinners) when you get home. Do not engage in any strenuous activity for the first 24 hours after the procedure. You may remove any bandages in the evening before going to bed. You may experience the following effects after RFA: Leg numbness: If you have any leg numbness, walk only with assistance. This should only last a few hours and is due to the local anesthesia given during the procedure. Mild back discomfort: This may occur when the local anesthetic wears off and usually lasts two or three days. Apply heat to the area the day of the procedure and the day after the procedure. You may also use your usual pain medications and NSAID medications such as ibuprofen, naproxen, Aleve, Motrin, etc. if you are able. Expectations: Results will be gradual. It may take 3-4 weeks for full relief. If you feel severe pain at the injection site with swelling and redness, increased leg weakness, a fever of 101 or higher, headache (or worsening headache), changes in vision or urinary retention: Please call the office at , or have someone take you to the nearest emergency room. Tell the emergency room staff that you just had RFA. A doctor must evaluate you for bleeding and injection complications. If you lose control over bowel, bladder, or legs: Go to the nearest emergency room. If you are diabetic, the steroids used in this procedure can increase your blood sugar. If your blood sugar is 250mg/dL or higher, contact your primary care physician, or the doctor who manages your diabetes, to discuss how to get it back to normal. documented in this encounter [facility] 07-30-2024 Note [facility] Reason for Consultation: Follow-up of autonomic nervous system disorder and orthostatic intolerance HPI: Elida Ruiz is a 49 y.o. year old with past medical history of Orthostatic intolerance, and dysautonomia.She also has a history of small fiber neuropathy, cardiomyopathy, Hypermobility syndrome and hypertension. She has had some near syncopal events. Her blood pressures have continued to trend upward. I told her that we see this in approximately 30% of the women that we follow as the anterior midline. To address this I am going to increase her nebivolol dose from 10 mg daily to 20 mg daily. I told her to contact us of any untoward effects occurred from this.I have asked her to keep a log of her blood pressures during the time she is on the higher dose to see if it has been effective or not. PMH: Past Medical History: Diagnosis Date Arrhythmia CHF (congestive heart failure) ([facility] 11/14/2011 Hypertension Syncope PSH: No past surgical history on file. SH: Social Determinants of Health Tobacco Use: Low Risk (07/30/2024) Patient History Smoking Tobacco Use: Never Smokeless Tobacco Use: Never Passive Exposure: Never Alcohol Use: Not At Risk (04/18/2023) Received from [facility] AUDIT-C Frequency of Alcohol Consumption: Never Average Number of Drinks: Patient does not drink Frequency of Binge Drinking: Never Financial Resource Strain: Low Risk (04/18/2023) Received from [facility] Overall Financial Resource Strain (CARDIA) Difficulty of Paying Living Expenses: Not hard at all Food Insecurity: No Food Insecurity (07/02/2024) Received from [facility] Hunger Screening Within the past 12 months we worried whether our food would run out before we got money to buy more.: Never True Within the past 12 months the food we bought just didn't last and we didn't have money to get more.: Never True Transportation Needs: No Transportation Needs (04/18/2023) Received from [facility] PRAPARE - Transportation Lack of Transportation (Medical): No Lack of Transportation (Non-Medical): No Physical Activity: Patient Declined (04/18/2023) Received from [facility] Exercise Vital Sign Days of Exercise per Week: Patient declined Minutes of Exercise per Session: Patient declined Stress: Patient Declined (04/18/2023) Received from [facility] [place] [facility] - Occupational Stress Questionnaire Feeling of Stress : Patient declined Social Connections: Socially Integrated (04/18/2023) Received from [facility] Social Connection and Isolation Panel [NHANES] Frequency of Communication with Friends and Family: Three times a week Frequency of Social Gatherings with Friends and Family: Once a week Attends Evangelical Services: More than 4 times per year Active Member of Clubs or Organizations: Yes Attends Club or Organization Meetings: 1 to 4 times per year Marital Status: Intimate Partner Violence: Not At Risk (07/30/2024) Humiliation, Afraid, Rape, and Kick questionnaire Fear of Current or Ex-Partner: No Emotionally Abused: No Physically Abused: No Sexually Abused: No Depression: Not at risk (07/30/2024) PHQ-2 PHQ-2 Score: 0 Housing Stability: Low Risk (04/18/2023) Received from [facility], [facility] Housing Stability Vital Sign Unable to Pay for Housing in the Last Year: No Number of Places Lived in the Last Year: 1 Unstable Housing in the Last Year: No Utilities: Not on file Health Literacy: Not on file Meds: Current Outpatient Medications on File Prior to Visit Medication Sig Dispense Refill albuterol 90 mcg/actuation inhaler Inhale 2 puffs every 6 (six) hours if needed for shortness of breath. amphetamine-dextroamphetamine XR (Adderall XR) 20 mg 24 hr capsule dextroamphetamine-amphetamine ER 20 mg 24hr capsule,extend release atorvastatin (Lipitor) 20 mg tablet atorvastatin 20 mg tablet buPROPion XL (Wellbutrin XL) 150 mg 24 hr tablet Take 1 tablet (150 mg) by mouth in the morning. Do not crush, chew, or split. 90 tablet 3 cholecalciferol (D3-5) 5,000 Units tablet in the morning. DULoxetine (Cymbalta) [address] capsule TAKE 3 CAPSULES DAILY 270 capsule 3 erenumab-aooe (Aimovig Autoinjector) 140 mg/mL auto-injector Inject 140 mg under the skin every 30 (thirty) days. fluticasone furoate-vilanteroL (Breo Elipta) 200-25 mcg/dose inhaler Inhale 2 puffs in the morning. gabapentin (Gralise) 600 mg tablet extended release 24 hr Gralise 600 mg tablet,extended release TAKE 1 TABLET BY MOUTH EVERY DAY naproxen (Naprosyn) 500 mg tablet Take 250 mg by mouth with breakfast and with evening meal. nebivolol (Bystolic) 10 mg tablet Take 1 tablet (10 mg) by mouth in the morning. 90 tablet 3 ondansetron (Zofran) 4 mg tablet ondanset (more content not included)... [facility] 07-21-2024 History of Present illness Narrative Images from the original note were not included. CHIEF COMPLAINT REASON FOR VISIT: Follow up. HPI: Elida Ruiz is a 49 y.o. female who presents for a follow up. She states that she has been dealing with high blood pressure. She is on the bystolic 20 mg a day. She states her BP has still been running high. Her normal sitting is 140/100. Today it was 144/100. She states if she stands it will go lower due to her pots. She states she has been having more headaches/migraines at least a couple a week. She states she does need to get back into Dr. Chi. She states she did caudale injection which took care of the pain down into the legs and took the pain away in the back for a couple weeks. She is going back this Sunday to get another injection. Last one about 4 weeks ago. They will do the nerve burning after. She does see Dr. Cabrales for this. I did check her BP while she was standing and it was 142/120. She states that does happen at times. She states when her BP is up she cannot sleep well and feels a little panicky. Refills-Adderall. CURRENT MEDICATIONS: ALLERGIES/DISCONTINUE MEDICATIONS Current Outpatient Medications Medication Instructions Aimovig 140 mg, Every 28 days albuterol HFA 90 mcg/act inhaler 2 puffs, Inhalation, Every 4 hours PRN amphetamine-dextroamphetamine XR (Adderall XR) 10 MG 24 hr capsule 10 mg, Oral, Every morning, Do not crush or chew. atorvastatin (Lipitor) 20 MG tablet TAKE 1 TABLET AT BEDTIME cholecalciferol (VITAMIN D-3) 20,000 Units, Daily DULoxetine (Cymbalta) [address] capsule TAKE 3 CAPSULES DAILY gabapentin (NEURONTIN) 300 mg, Oral, 3 times daily naproxen (NAPROSYN) 500 mg, 2 times daily with meals nebivolol (BYSTOLIC) 20 mg, Daily Trokendi XR 200 MG capsule sustained-release 24 hr 1 capsule, Oral, Nightly Allergies Allergen Reactions Cephalosporins Other Reaction(s): nausea/vomiting Other reaction(s): nausea/vomiting Penicillins Hives and Rash Other Reaction(s): Other vomiting and rash Other Reaction(s): other Sulfamethoxazole-Trimethoprim Rash Other Reaction(s): Other There are no discontinued medications. PAST MEDICAL HISTORY: SURGICAL/SOCIAL/FAMILY HISTORY DEPRESSION SCREEN: Past Medical History: Diagnosis Date Abdominal pain 07/18/2010 Acute left-sided low back pain with left-sided sciatica Acute meniscal tear, medial 11/15/2022 Acute non-recurrent pansinusitis Acute pain of right knee Acute pansinusitis 01/20/2021 ADHD (attention deficit hyperactivity disorder) ([facility]) Allergic rhinitis Annular tear of lumbar disc Anxiety AOM (acute otitis media) Arthritis Asthma ([facility]) Benign lipomatous neoplasm of skin and subcutaneous tissue of unspecified sites BPPV (benign paroxysmal positional vertigo), unspecified laterality Chronic cough 01/06/2021 Chronic sinusitis COVID 06/2020 Dehydration 08/23/2021 Depression ([facility]) Dizziness and giddiness 05/31/2007 Eczema Fall ER fell ankles rolled Xray left, no fracture Gastro-esophageal reflux disease without esophagitis Grief ([facility]) History of being hospitalized patient has never been hospitalized for mental health History of being hospitalized ER fell 2-1-18 ankles rolled.Xray left, no fracture. History of irritable bowel syndrome 04/20/2015 Hypermobility syndrome Hypertension ([facility]) IBS (irritable bowel syndrome) Insomnia 08/11/2020 Internal derangement of right knee 07/18/2019 Obstructive sleep apnea Other infectious disease DENIES H/O BLOOD BORNE DISEASE Otitis media 01/20/2021 Pain in left knee 11/15/2022 Pain in right knee 04/05/2016 POTS (postural orthostatic tachycardia syndrome) Restless leg S/P abdominal hysterectomy Sacroiliitis ([facility]) Sequelae of other specified infectious and parasitic diseases 06/21/2021 Vesico-ureteral reflux Past Surgical History: Procedure Laterality Date SECTION, LOW TRANSVERSE 2012 CHOLECYSTECTOMY 02/2010 CYSTOSCOPY 02/13/2017 cystogram - Dr Moreno D&C FIRST TRIMESTER / TX INCOMPLETE / MISSED / SEPTIC / INDUCED 2009 LOOP RECORDER IMPLANT 10/2014 LOOP RECORDER REMOVAL 01/30/2018 NERVE BLOCK 2013 facet joint AK KNEE SCOPE,CLEAN/DRAIN Right 05/25/2015 DR GUIDO AK KNEE SCOPE,CLEAN/DRAIN Left 10/12/2015 DR GUIDO SEPTOPLASTY 11/2009 [facility];Disease:Chronic sinusitis TOTAL ABDOMINAL HYSTERECTOMY W/ BILATERAL SALPINGOOPHORECTOMY 01/30/2017 Dr. Vallecillo Social History Tobacco Use Smoking status: Never Passive exposure: Never Smokeless tobacco: Never Tobacco comments: Parents were heavy smokers growing up Vaping Use Vaping status: Never Used Substance Use Topics Alcohol use: Not Currently Comment: Caffeine intake 1-2 cups per day pop Drug use: Never Family History Problem Relation Name Age of Onset Anxiety disorder Mother Una Breast cancer Mother Una metastatic Mental illness Mother Una Arthritis Mother Una Cancer Mother Una Hypertension Mother Una Miscarriages / Stillbirths Mother Una Alcohol abuse Father Demetrius Lung cancer Father Demetrius Cancer Father Demetrius Heart disease Father Demetrius Hypertension Father Demetrius Cervical cancer Niece Cancer Maternal Grandmother Mateo Stroke Paternal Grandfather Judd Diabetes Mother's Sister Jyoti Hearing loss Mother's Sister Jyoti Psoriasis Neg Hx Depression: Not at risk (08/21/2023) Received from [facility], [facility] PHQ-2 Patient Health Questionnaire-2 Score: 0 REVIEW OF SYMPTOMS: Review of Systems Constitutional: Negative for chills, diaphoresis, fatigue and fever. HENT: Negative for ear pain, tinnitus and trouble swallowing. Eyes: Negative for photophobia and visual disturbance. Respiratory: Negative for cough and shortness of breath. Cardiovascular: Negative for palpitations and leg swelling. Gastrointestinal: Negative for abdominal pain and nausea. Genitourinary: Negative for difficulty urinating and urgency. Musculoskeletal: Negative for arthralgias, back pain, myalgias, neck pain and neck stiffness. Neurological: Positive for headaches. Negative for tremors, weakness, light-headedness and numbness. Psychiatric/Behavioral: Negative for agitation, confusion and suicidal ideas. OBJECTIVE: 07/21/2024 11:26 AM 05/07/2024 9:37 AM 05/05/2024 9:41 AM Vitals BMI 31.68 kg/m2 31.86 kg/m2 BSA (m2) 1.88 m2 1.88 m2 Systolic 144 138 Diastolic 100 82 Height (in) 5' 2.5 5' 2.5 Weight (lb) 176 177 Visit Report Report Report Report EXAM: Neurological Exam Mental Status Awake, alert and oriented to person, place and time. Oriented to person, place and time. Recent and remote memory are intact. Speech is normal. Language is fluent with no aphasia. Attention and concentration are normal. Cranial Nerves CN II: Visual acuity is normal. Visual umaña full to confrontation. CN III, IV, : Extraocular movements intact bilaterally. Normal lids and orbits bilaterally. Pupils equal round and reactive to light bilaterally. CN V: Facial sensation is normal. CN VII: Full and symmetric facial movement. CN VIII: Hearing is normal. CN XII: Tongue midline without atrophy or fasciculations. Motor Normal muscle bulk throughout. Normal muscle tone. Right Left Wrist flexion 5 5 Wrist extension 5 5 Right Left Deltoid 5 5 Biceps 5 5 Triceps 5 5 Wrist flexor 5 5 Wrist extensor 5 5 Glutei 5 5 Iliopsoas 5 5 Quadriceps 5 5 Gastrocnemius 5 5 Anterior tibialis 5 5 Posterior tibialis 5 5 Sensory Light touch is normal in upper and lower extremities. Pinprick is normal in upper and lower extremities. Vibration is normal in upper and lower extremities. Reflexes Right Left Brachioradialis 2+ 2+ Biceps 2+ 2+ Patellar 2+ 2+ Achilles 2+ 2+ Right Plantar: downgoing Left Plantar: downgoing Right pathological reflexes: Agueda's absent. Ankle clonus absent. Left pathological reflexes: Agueda's absent. Ankle clonus absent. Coordination [id number], rapid alternating movements and [id number] normal bilaterally without dysmetria. Gait Normal casual, toe, heel and tandem gait. Romberg is absent. PROCEDURE: NONE ASSESSMENT AND PLAN: Elida Ruiz is a 49 year old female with a sensory disturbance in the distal lower extremities manifested predominantly as numbness and paresthesia in her bilateral feet which have been progressive over the past 8 months, Possible etiologies would include a generalized process affecting large fibers such as peripheral neuropathy, lumbar radiculopathy, or lumbosacral plexopathy. I cannot exclude a small fiber neuropathy contributing to predominantly sensory symptoms in the lower extremities, I cannot exclude it medical condition or metabolic process contributing to peripheral nerve dysfunction including polyneuropathy. I do feel that she should either try alternative pain measures such as CBD/THC combination and see pain management. Diagnoses and all orders for this visit: ADHD, predominantly inattentive type (CMS/HCC) Continue with adderall 10 mg daily. POTS (postural orthostatic tachycardia syndrome) Migraine without aura and without status migrainosus, not intractable (CMS/HCC) Qulipta 60 mg every other day for a month. Samples. Trokendi 200 mg capsule at bed. Lumbar radiculopathy Continue with Dr. Cabrales for injections. POTS (postural orthostatic tachycardia syndrome) Small fiber neuropathy gabapentin (Neurontin) 300 MG capsule; Take 1 capsule (300 mg) by mouth in the morning and 1 capsule (300 mg) in the evening and 1 capsule (300 mg) before bedtime. I counseled the patient on the possible side effects and interactions of medications. Follow up 3 months. This note was scribed by MATT Dobbins acting under the direction of Maryse Hinson MD. The content has been reviewed and confirmed for accuracy by Maryse Hinson MD documented in this encounter [facility] 07-02-2024 History of Present illness Narrative [facility] [address] [place] [address] Patient: Elida Ruiz Sex: female : 1975 Age: 49 y.o. PCP: Yisel Lowry MD 07/02/2024 Elida Diana Quigleyer is here for a(n) post procedure follow up 05/30/2024 bilateral L4/5 L5/S1 medial branch block with 100% relief x 2 weeks. Patient continues to benefit from 50% relief. Date of onset of pain: March 2023 , pain has lasted greater than 3 months. Pain scale before treatment: 6/10 Pre-op pain score: 6/10 Post-op pain score: 0/10 Percentage of relief after and duration: see above Pain scale after treatment: 08/25 Chief Complaint Patient presents with Back Pain HPI: PT (aquatic) from 03/27/2024 -04/22/2024 with 50% relief of bilateral bursitis symptoms. BACK 04/04/2024 caudal epidural steroid injection with 100% relief of leg pain. Lumbar pain remains unchanged Pain scale before treatment: 5/10 Pain scale after treatment: 0/10 LLE, 05/30/2024 bilateral L4/5 L5/S1 medial branch block with 100% relief x 2 weeks. Back Pain This is a chronic problem. The current episode started more than 1 year ago (Mar 2023 exacerbation of chronic low back pain). The problem occurs constantly (with activity). The problem has been gradually improving (post lumbar MBB) since onset. The pain is present in the sacro-iliac, lumbar spine and gluteal (into hips). The quality of the pain is described as aching and stabbing. Radiates to: bilateral hips. The pain is at a severity of 3/10. The pain is mild. Worse during: activity. The symptoms are aggravated by sitting, standing, bending, twisting and coughing (walking, stairs, lifting, pushing, pulling, sneezing, transitioning). Stiffness is present All day. Associated symptoms include numbness (neuropathy in fingers and toes), tingling (neuropathy in fingers and toes) and weakness. Pertinent negatives include no bladder incontinence, chest pain, fever or leg pain. Risk factors include obesity. She has tried NSAIDs, muscle relaxant, home exercises, heat and ice (Gabapentin, Tramadol, Naproxen, Prev Injs 2022, Prev PT 2021, Lido Patch, Tens Unit, Biofreeze) for the symptoms. The treatment provided mild relief. The effect of pain on patient's ADLS: Mild Impairment. Past Medical History: Diagnosis Date ADHD Annular tear of lumbar disc Anxiety AOM (acute otitis media) Asthma Back pain Benign lipomatous neoplasm of skin and subcutaneous tissue BPPV (benign paroxysmal positional vertigo) Cardiomyopathy, peripartum COVID Depression Eczema Cristi-Danlos syndrome GERD (gastroesophageal reflux disease) Hyperlipidemia Hypermobility syndrome Hypertension IBS (irritable bowel syndrome) Joint pain Rt Knee Low back pain Migraines Nephropathy of one kidney due to vesicoureteral reflux Neuropathy Observed sleep apnea Pansinusitis Pneumonia June/Covid 2020 POTS (postural orthostatic tachycardia syndrome) Restless leg Rhinitis Sacroiliitis ([facility]) Sinusitis, chronic Vesico-ureteral reflux Visual impairment Past Surgical History: Procedure Laterality Date ABDOMINAL SURGERY BLADDER SURGERY SECTION twins CHOLECYSTECTOMY COLONOSCOPY CYSTOSCOPY DILATION AND CURETTAGE OF UTERUS EGD HYSTERECTOMY INJECTION BLOCK EPIDURAL CAUDAL STEROID N/A 04/04/2024 Performed by Pj Cabrales MD at [facility] INJECTION BLOCK NERVE MEDIAL BRANCH BIlat L 4/5, 5/ Bilateral 05/30/2024 Performed by Pj Cabrales MD at [facility] INSERTION LOOP RECORDER 2014 KNEE ARTHROSCOPY W/ MENISCECTOMY Bilateral also had a lateral release on right knee REMOVAL LOOP RECORDER 2018 SINUS SURGERY x 2 SKIN BIOPSY benign Allergies Allergen Reactions Cephalosporins Other reaction(s): nausea/vomiting Bactrim [Sulfamethoxazole-Trimethoprim] Rash Penicillins Hives and Rash Family History Problem Relation Age of Onset Mental illness Mother Cancer Mother Arthritis Mother Breast cancer Mother Hypertension Mother Miscarriages / Stillbirths Mother Anxiety disorder Mother Lung disease Father Cancer Father Alcohol abuse Father Clotting disorder Father Heart disease Father Hypertension Father Lung cancer Father Hearing loss Maternal Aunt Diabetes Maternal Aunt Cancer Maternal Grandmother Colon cancer Maternal Grandmother Ovarian cancer Maternal Grandmother Pancreatic cancer Maternal Grandmother Diabetes Maternal Grandfather Heart disease Maternal Grandfather Hypertension Maternal Grandfather Stroke Paternal Grandfather Heart disease Paternal Grandfather Hypertension Paternal Grandfather Cancer Niece Social History Socioeconomic History Marital status: Spouse name: Not on file Number of children: Not on file Years of education: Not on file Highest education level: Not on file Occupational History Not on file Tobacco Use Smoking status: Never Smokeless tobacco: Never Vaping Use Vaping status: Never Used Substance and Sexual Activity Alcohol use: Not Currently Drug use: Never Sexual activity: Defer Other Topics Concern Not on file Social History Narrative Not on file Social Drivers of Health Financial Resource Strain: Low Risk (04/18/2023) Received from [facility] Overall Financial Resource Strain (CARDIA) Difficulty of Paying Living Expenses: Not hard at all Food Insecurity: No Food Insecurity (07/02/2024) Hunger Screening Food Insecurity - Worry: Never True Food Insecurity - Inability: Never True Transportation Needs: No Transportation Needs (04/18/2023) Received from [facility] PRAPARE - Transportation Lack of Transportation (Medical): No Lack of Transportation (Non-Medical): No Physical Activity: Patient Declined (04/18/2023) Received from [facility] Exercise Vital Sign Days of Exercise per Week: Patient declined Minutes of Exercise per Session: Patient declined Stress: Patient Declined (04/18/2023) Received from [facility] [place] [facility] - Occupational Stress Questionnaire Feeling of Stress : Patient declined Social Connections: Socially Integrated (04/18/2023) Received from [facility] Social Connection and Isolation Panel [NHANES] Frequency of Communication with Friends and Family: Three times a week Frequency of Social Gatherings with Friends and Family: Once a week Attends Evangelical Services: More than 4 times per year Active Member of Clubs or Organizations: Yes Attends Club or Organization Meetings: 1 to 4 times per year Marital Status: Interpersonal Safety: Not At Risk (08/21/2023) Received from [facility] Humiliation, Afraid, Rape, and Kick questionnaire Fear of Current or Ex-Partner: No Emotionally Abused: No Physically Abused: No Sexually Abused: No Housing Instability: Low Risk (04/18/2023) Received from [facility], [facility] Housing Stability Vital Sign Unable to Pay for Housing in the Last Year: No Number of Places Lived in the Last Year: 1 Unstable Housing in the Last Year: No Review of Systems Constitutional: Negative for fever. HENT: Negative. Cardiovascular: Negative for chest pain. Gastrointestinal: Positive for diarrhea. Negative for constipation. IBS Genitourinary: Negative for bladder incontinence. Musculoskeletal: Positive for back pain. Skin: Negative. Neurological: Positive for tingling (neuropathy in fingers and toes), weakness and numbness (neuropathy in fingers and toes). Psychiatric/Behavioral: Negative. Vital Signs: BP (!) 140/95 Pulse 72 Resp 14 Ht 157.5 cm (5' 2 ) Wt 79.4 kg (175 lb) SpO2 100% BMI 32.01 kg/m Physical Exam: GENERAL - Healthy patient that appears stated age. HEENT - Normocephalic / Atraumatic, Extraoccular movements intact, trachea midline, thyroid within normal limits. CV - pulse regular, Warm extremities with appropriate color of nailbeds. RESP - No obvious wheezing, No Shortness of Breath, No overexertion response to exam maneuvers. COORDINATION - remains intact. PSYCH - Alert and Oriented x4, Attentive and appropriate, constitutionally normal, displays normal mood and affect per situation, answered questions appropriately during examination, demonstrated appropriate attention during discussion, demonstrated appropriate cognitive reasoning and understanding of the medical condition by asking appropriate questions regarding the diagnosis and risks/benefits/alternatives of treatment modalities. No obvious deficits in memory, reasoning, or intellect. Lumbar: SKIN - No rashes or bruising in the area of the patient s pain. LYMPH NODES - demonstrate no obvious enlargement. EXTREMITIES - Lower extremities are warm, with minimal edema and palpable pulses. Tenderness to palpation noted in the lumbar spine and paraspinal musculature. Pain is elicited with flexion, extension, and lateral rotation of the lumbar spine. Range of motion is diminished with these motions due to pain. Facet palpation is noted to be painful and facet loading maneuvers elicit pain that is concordant with the patient s normal pain complaints. Some muscle spasm is noted in the overlying musculature. STRENGTH - noted to be 5 out of 5 all muscle groups bilateral lower extremities including muscles involving hip flexion and abduction, knee flexion and extension, as well as foot dorsiflexion and plantarflexion. No notable atrophy, fasciculations or spasm. SENSORY - No notable sensory deficits in the bilateral lower extremities to touch or pinprick in all dermatomal distributions. Straight Leg Raise is negative bilaterally. Gait is normal. Assessment/Treatment Plan: Elida was seen today for back pain. Diagnoses and all orders for this visit: Lumbar spondylosis - Case request operating room: INJECTION BLOCK NERVE MEDIAL BRANCH Bilateral L 4/5,5/1 Bilateral L4/5, 5/1 Facet Injection/Medial Branch Block - under fluoroscopy It is hopeful that the described procedure will provide symptomatic pain relief. It is felt to be medically necessary noting that the patient has tried and failed more conservative modalities of therapy and this is the next most appropriate step. The procedure was described in detail to the patient as well as the potential benefits of pain reduction alongside risks of the procedure and alternatives. Risks were described as including, but not limited to bleeding, infection, nerve damage, spinal cord injury, paralysis, stroke, dural puncture headache, and medication reaction. The patient expressed understanding regarding the risks and benefits and wishes to proceed. Diagnostic facet injections and medial branch blocks should provide information to confirm that the noted facet arthropathy is the patient s most significant pain generator. If this provides significant but only temporary pain relief, the patient may in the future be a candidate for radiofrequency denervation of the facet joints to provide pain relief for approximately 1 year. Follow up 2 weeks after procedure The medications prescribed have been reviewed for medication interactions/contraindications and/or for upcoming procedures: continue current medication regimen without any changes. DISCUSSION: Treatment options discussed with patient and all questions answered to patient's satisfaction. Prescribed medication that requires intensive monitoring for toxicity We do not currently prescribe any controlled substance from this practice. Treatment plans discussed but not opted for at this time: Lumbar RFA. Patient would like to proceed with the current outlined treatment plan before moving forward with any other options. It is noted that the patient did have good response from the previously performed procedure. It is felt that the patient would benefit from an additional procedure of the same nature in that the same symptoms have returned. It is hopeful that this additional injection will provide additional benefit and duration when combined with the previous injection. The spine model was demonstrated and MRI was reviewed and used to explain the condition. Chronic conditions not treated during this visit that affected my overall medical decision making: Comorbidity- Anxiety The patient describes a significant issue with anxiety. Although treatment is helpful with this regard, the patient is likely need special accommodation due to this condition. For this reason, necessary procedures will likely need to be performed under sedation to decrease procedural anxiety. Comorbidity- Sleep Apnea The patient has a history of obstructive sleep apnea. Due to this reason, special consideration will need to be given to the prescription of narcotics in that they may depress respiratory function and lead to respiratory insufficiency or failure. Consideration will also be given to procedure safety in that sedation is used in the outpatient setting for any planned procedure. These records will be available to the anesthesiologist to tailor a safe anesthetic for the procedure. The patient will also be observed closely in the recovery area and may even require admission if they remain overly sedated for an extended period of time and cannot maintain an airway. These preparations will be made as necessary. OARRS: Reviewed. Scribe Statement: Saida Martinez CNA, scribed for and in the presence of MAURICIO BAGLEY PA-C who performed the above service. Provider Statement: MAURICIO Martinez PA-C, personally performed the services described in the documentation, as scribed by Saida Bowman CNA in my presence, and it is both accurate and complete. Saida Bowman CNA 07/02/24 0837 Mauricio Bagley PA-C 07/02/24 0902 documented in this encounter [facility] 07-02-2024 Instructions Saida Bowman CNA - 07/02/2024 8:15 AM EST Facet Injection / Medial Branch Block (MBB) / Sacroiliac (SI) Joint Injection / Cluneal NB A facet injection and sacroiliac joint injection are injections of local anesthetic and steroid into a joint in the spine. A medial branch block is similar, but the medication is placed outside the joint space near the nerve that supplies the joint called the medial branch (steroid may or may not be used). You may require multiple injections depending upon how many joints are involved. How Long Will This Procedure Last? The extent and duration of pain relief may depend on the amount of inflammation and how many areas are involved. Other coexisting factors may be responsible for your pain. If your pain goes away for a short time, but then returns, you may be a candidate for radiofrequency ablation (RFA). Activity Be active. Attempt activities and movements that typically cause pain to see if it feels better while doing them. We will give you a pain diary. Please fill this out as directed by your nurse in pre-op. This will help your doctor determine the effectiveness of the injection, and how to proceed. Bring the pain diary with you to your follow-up appointment. Medications You should not take your pain medications for 4-6 hours before or after the injection in order to properly diagnose if the injection provides adequate relief. Resume your routine medications after your procedure. You may resume blood thinners per your regular schedule after the procedure. If you received sedation: If you received sedation for your procedure, you may feel sleepy or not yourself for several hours today. For the next 24 hours avoid activities that requires alertness or coordination. This includes: Driving or operating heavy machinery Using power tools Consuming alcohol Do not make important or complex decisions or sign legal documents in the next 24 hours. Other Instructions: If you feel severe pain at the injection site with swelling and redness, increased leg weakness, a fever of 101 or higher, headache (or worsening headache), changes in vision or urinary retention: Please call the office at , or have someone take you to the nearest emergency room. Tell the emergency room staff that you recently had a spine injection. A doctor must evaluate you for bleeding and injection complications. If you lose control over bowel, bladder, or legs: Go to the nearest emergency room. documented in this encounter [facility] 05-07-2024 History of Present illness Narrative Images from the original note were not included. Subjective Patient ID: Elida Ruiz is a 48 y.o. female who presents for Follow-up (Pt is here today for FUV stress fx Lt foot, still will flare up when she does a lot of walking ). HPI Established patient returns to clinic for follow up evaluation of suspected stress fracture of the left foot. Patient has had improvement in symptoms with change in shoe gear and power step orthotics. She also completed a steroid taper pack. She states that when she does a lot of walking or tries to room per activity up she notices some soreness to the foot but otherwise she has made significant improvement. Review of Systems Constitutional: Positive for activity change. Negative for appetite change. Respiratory: Negative for chest tightness and shortness of breath. Cardiovascular: Negative for chest pain. Musculoskeletal: Positive for arthralgias. Negative for gait problem. Skin: Negative for color change and wound. Neurological: Negative for weakness and numbness. Psychiatric/Behavioral: Negative for agitation and behavioral problems. Hematological: Does not bruise/bleed easily. Endocrine: Negative for cold intolerance and heat intolerance. Allergic/Immunologic: Negative for immunocompromised state. Past medical History Past Medical History: Diagnosis Date Abdominal pain 07/18/2010 Acute left-sided low back pain with left-sided sciatica Acute meniscal tear, medial 11/15/2022 Acute non-recurrent pansinusitis Acute pain of right knee Acute pansinusitis 01/20/2021 ADHD (attention deficit hyperactivity disorder) ([facility]) Allergic rhinitis Annular tear of lumbar disc Anxiety AOM (acute otitis media) Arthritis Asthma ([facility]) Benign lipomatous neoplasm of skin and subcutaneous tissue of unspecified sites BPPV (benign paroxysmal positional vertigo), unspecified laterality Chronic cough 01/06/2021 Chronic sinusitis COVID 06/2020 Dehydration 08/23/2021 Depression ([facility]) Dizziness and giddiness 05/31/2007 Eczema Fall ER fell ankles rolled Xray left, no fracture Gastro-esophageal reflux disease without esophagitis Grief ([facility]) History of being hospitalized patient has never been hospitalized for mental health History of being hospitalized ER fell 2-1-18 ankles rolled.Xray left, no fracture. History of irritable bowel syndrome 04/20/2015 Hypermobility syndrome Hypertension ([facility]/HCC) IBS (irritable bowel syndrome) Insomnia 08/11/2020 Internal derangement of right knee 07/18/2019 Obstructive sleep apnea Other infectious disease DENIES H/O BLOOD BORNE DISEASE Otitis media 01/20/2021 Pain in left knee 11/15/2022 Pain in right knee 04/05/2016 POTS (postural orthostatic tachycardia syndrome) Restless leg S/P abdominal hysterectomy Sacroiliitis (CMS/HCC) Sequelae of other specified infectious and parasitic diseases 06/21/2021 Vesico-ureteral reflux Medications Current Outpatient Medications: albuterol HFA 90 mcg/act inhaler, Inhale 2 puffs every 4 (four) hours if needed for wheezing for up to 10 days, Disp: 18 g, Rfl: 0 amphetamine-dextroamphetamine XR (Adderall XR) 10 MG 24 hr capsule, Take 1 capsule (10 mg) by mouth in the morning. Do not crush or chew.., Disp: 90 capsule, Rfl: 0 atorvastatin (Lipitor) 20 MG tablet, TAKE 1 TABLET AT BEDTIME, Disp: 90 tablet, Rfl: 3 cholecalciferol (Vitamin D-3) 125 MCG (5000 UT) capsule, Take 20,000 Units by mouth Daily Pt is taking 20,000 IU qd, Disp: , Rfl: DULoxetine (Cymbalta) [address] capsule, TAKE 3 CAPSULES DAILY, Disp: 270 capsule, Rfl: 3 erenumab (Aimovig) 140 MG/ML injection, Inject 140 mg under the skin every 28 (twenty-eight) days., Disp: , Rfl: gabapentin (Neurontin) 300 MG capsule, Take 1 capsule (300 mg) by mouth in the morning and 1 capsule (300 mg) in the evening and 1 capsule (300 mg) before bedtime. (Patient taking differently: Take 300 mg by mouth in the morning and 300 mg in the evening and 300 mg before bedtime. Pt is taking once a day at hs.), Disp: 270 capsule, Rfl: 0 naproxen (Naprosyn) 250 MG tablet, 500 mg in the morning and 500 mg in the evening. Take with meals., Disp: , Rfl: nebivolol (Bystolic) 10 MG tablet, Take 10 mg by mouth in the morning., Disp: , Rfl: Trokendi XR 200 MG capsule sustained-release 24 hr, TAKE 1 CAPSULE AT BEDTIME, Disp: 90 capsule, Rfl: 3 Allergies Cephalosporins, Penicillins, and Sulfamethoxazole-trimethoprim Past Surgical History Past Surgical History: Procedure Laterality Date SECTION, LOW TRANSVERSE 2012 CHOLECYSTECTOMY 02/2010 CYSTOSCOPY 02/13/2017 cystogram - Dr Moreno D&C FIRST TRIMESTER / TX INCOMPLETE / MISSED / SEPTIC / INDUCED 2009 LOOP RECORDER IMPLANT 10/2014 LOOP RECORDER REMOVAL 01/30/2018 NERVE BLOCK 2013 facet joint AK KNEE SCOPE,CLEAN/DRAIN Right 05/25/2015 DR GUIDO [place] KNEE SCOPE,CLEAN/DRAIN Left 10/12/2015 DR GUIDO SEPTOPLASTY 11/2009 [facility];Disease:Chronic sinusitis TOTAL ABDOMINAL HYSTERECTOMY W/ BILATERAL SALPINGOOPHORECTOMY 01/30/2017 Dr. Vallecillo Family History Family History Problem Relation Name Age of Onset Anxiety disorder Mother Una Breast cancer Mother Una metastatic Mental illness Mother Una Arthritis Mother Una Cancer Mother Una Hypertension Mother Una Miscarriages / Stillbirths Mother Una Alcohol abuse Father Demetrius Lung cancer Father Demetrius Cancer Father Demetrius Heart disease Father Demetrius Hypertension Father Demetrius Cervical cancer Niece Cancer Maternal Grandmother Mateo Stroke Paternal Grandfather Judd Diabetes Mother's Sister Jyoti Hearing loss Mother's Sister Jyoti Psoriasis Neg Hx Objective Physical Exam Constitutional: Appearance: She is obese. HENT: Head: Normocephalic and atraumatic. Cardiovascular: Comments: DP, PT pulses weakly palpable 1/4. Skin temperature warm to cold. Pulmonary: Effort: Pulmonary effort is normal. No respiratory distress. Abdominal: Palpations: There is no mass. Musculoskeletal: Cervical back: No rigidity. Comments: Weightbearing examination reveals slight planus morphology. Left foot: There is still some very mild tenderness over the dorsal aspect of metatarsal shafts 2, 3, 4. Negative forefoot compression test. Muscle strength 5/5 for dorsiflexion with tenderness, tenderness on eversion as well. Muscle strength 5/5 for all remaining quadrants. Ankle dorsiflexion 0 degrees with the knee extended, flexed. No edema or ecchymosis noted. Skin: Capillary Refill: Capillary refill takes 2 to 3 seconds. Findings: No lesion or rash. Neurological: Mental Status: She is alert. Comments: No loss of protective sensation, gross sensation intact. Psychiatric: Mood and Affect: Mood normal. Behavior: Behavior normal. Assessment/Plan ICD-10-CM 1. Left foot pain M79.672 2. Stress fracture of left foot, initial encounter M84.375A 3. Equinus contracture of left ankle M24.572 Patient examined and evaluated. I reviewed previous imaging studies in detail. Fortunately she has made significant improvement and I do not recommend an MRI at this time. I recommend continued use of supportive shoes, power steps daily. Recommend [id number] anti-inflammatory as needed for any mild flares of symptomatology. Recommend close follow up with our office if symptoms worsen or change. Discussed the importance of activity modification to limit stress across the metatarsals and recurrent symptomatology. For now I will see her back as needed. This note was created with the assistance of a speech recognition program. While intending to generate a timely document that accurately reflects the content of the visit, no guarantee can be provided that every grammatical or spelling mistake has been or will be identified or corrected. Thank you for your understanding. Thad Capps DPM documented in this encounter [facility] 05-05-2024 History of Present illness Narrative Images from the original note were not included. Elida Ruiz is a 48 y.o. female presents with chief complaint of Annual Exam (Cardiology manages bystolic for pt. Pt states her bp has been high at pain management. Pt is going to follow with cardiology regarding this) HPI: HPI As above. She follows with cardiology, pain management, neurology, urology, podiatry, and behavioral health. She sees the dentist every 6 months and the eye doctor yearly. She is concerned about her weight gain and states she eats good. She is going on vacation next week to [place] as well which she is looking forward to. SUBJECTIVE: MEDICATIONS: Current Outpatient Medications Medication Instructions Aimovig 140 mg, Every 28 days albuterol HFA 90 mcg/act inhaler 2 puffs, Inhalation, Every 4 hours PRN amphetamine-dextroamphetamine XR (Adderall XR) 10 MG 24 hr capsule 10 mg, Oral, Every morning, Do not crush or chew. atorvastatin (Lipitor) 20 MG tablet TAKE 1 TABLET AT BEDTIME cholecalciferol (VITAMIN D-3) 20,000 Units, Daily DULoxetine (Cymbalta) [address] capsule TAKE 3 CAPSULES DAILY gabapentin (NEURONTIN) 300 mg, Oral, 3 times daily naproxen (NAPROSYN) 500 mg, 2 times daily with meals nebivolol (BYSTOLIC) 10 mg, Daily Trokendi XR 200 MG capsule sustained-release 24 hr 1 capsule, Oral, Nightly ALLERGIES: Allergies Allergen Reactions Cephalosporins Other Reaction(s): nausea/vomiting Other reaction(s): nausea/vomiting Penicillins Hives and Rash Other Reaction(s): Other vomiting and rash Sulfamethoxazole-Trimethoprim Rash Other Reaction(s): Other History: Past Medical History: Diagnosis Date Acute left-sided low back pain with left-sided sciatica Acute non-recurrent pansinusitis Acute pain of right knee Acute pansinusitis 01/20/2021 ADHD (attention deficit hyperactivity disorder) ([facility]) Allergic rhinitis Annular tear of lumbar disc Anxiety AOM (acute otitis media) Arthritis Asthma ([facility]) Benign lipomatous neoplasm of skin and subcutaneous tissue of unspecified sites BPPV (benign paroxysmal positional vertigo), unspecified laterality Chronic sinusitis COVID 06/2020 Dehydration 08/23/2021 Depression ([facility]) Eczema Fall ER fell ankles rolled Xray left, no fracture Gastro-esophageal reflux disease without esophagitis Grief ([facility]) History of being hospitalized patient has never been hospitalized for mental health History of being hospitalized ER fell 2-1-18 ankles rolled.Xray left, no fracture. Hypermobility syndrome Hypertension ([facility]) IBS (irritable bowel syndrome) Obstructive sleep apnea Other infectious disease DENIES H/O BLOOD BORNE DISEASE Otitis media 01/20/2021 POTS (postural orthostatic tachycardia syndrome) Restless leg S/P abdominal hysterectomy Sacroiliitis ([facility]) Vesico-ureteral reflux Past Surgical History: Procedure Laterality Date SECTION, LOW TRANSVERSE 2012 CHOLECYSTECTOMY 02/2010 CYSTOSCOPY 02/13/2017 cystogram - Dr Moreno D&C FIRST TRIMESTER / TX INCOMPLETE / MISSED / SEPTIC / INDUCED 2009 LOOP RECORDER IMPLANT 10/2014 LOOP RECORDER REMOVAL 01/30/2018 NERVE BLOCK 2013 facet joint [place] KNEE SCOPE,CLEAN/DRAIN Right 05/25/2015 DR GUIDO [place] KNEE SCOPE,CLEAN/DRAIN Left 10/12/2015 DR GUIDO SEPTOPLASTY 11/2009 [facility];Disease:Chronic sinusitis TOTAL ABDOMINAL HYSTERECTOMY W/ BILATERAL SALPINGOOPHORECTOMY 01/30/2017 Dr. Vallecillo Family History Problem Relation Name Age of Onset Anxiety disorder Mother Una Breast cancer Mother Una metastatic Mental illness Mother Una Arthritis Mother Una Cancer Mother Una Hypertension Mother Una Miscarriages / Stillbirths Mother Una Alcohol abuse Father Demetrius Lung cancer Father Demetrius Cancer Father Demetrius Heart disease Father Demetrius Hypertension Father Demetrius Cervical cancer Niece Cancer Maternal Grandmother Mateo Stroke Paternal Grandfather Judd Diabetes Mother's Sister Jyoti Hearing loss Mother's Sister Jyoti Psoriasis Neg Hx Social History Socioeconomic History Marital status: Spouse name: Paddy Number of children: Not on file Years of education: Not on file Highest education level: Not on file Occupational History 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, 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 Tobacco Use Smoking status: Never Passive exposure: Never Smokeless tobacco: Never Tobacco comments: Parents were heavy smokers growing up Vaping Use Vaping status: Never Used Substance and Sexual Activity Alcohol use: Not Currently Comment: Caffeine intake 1-2 cups per day pop Drug use: Never Sexual activity: Not on file Other Topics Concern Not on file Social History Narrative Living with: Spouse and twin daughters Patient is on social Social Drivers of Health Financial Resource Strain: Low Risk (04/18/2023) Overall Financial Resource Strain (CARDIA) Difficulty of Paying Living Expenses: Not hard at all Food Insecurity: No Food Insecurity (04/30/2024) Re[facility] from [facility] Hunger Screening Within the past 12 months we worried whether our food would run out before we got money to buy more.: Never True Within the past 12 months the food we bought just didn't last and we didn't have money to get more.: Never True Transportation Needs: No Transportation Needs (04/18/2023) PRAPARE - Transportation Lack of Transportation (Medical): No Lack of Transportation (Non-Medical): No Physical Activity: Patient Declined (04/18/2023) Exercise Vital Sign Days of Exercise per Week: Patient declined Minutes of Exercise per Session: Patient declined Stress: Patient Declined (04/18/2023) [employer] [place] [employer] - Occupational Stress Questionnaire Feeling of Stress : Patient declined Social Connections: Socially Integrated (04/18/2023) Social Connection and Isolation Panel [NHANES] Frequency of Communication with Friends and Family: Three times a week Frequency of Social Gatherings with Friends and Family: Once a week Attends Evangelical Services: More than 4 times per year Active Member of Clubs or Organizations: Yes Attends Club or Organization Meetings: 1 to 4 times per year Marital Status: Intimate Partner Violence: Not At Risk (08/21/2023) [facility] Humiliation, Afraid, Rape, and Kick questionnaire Fear of Current or Ex-Partner: No Emotionally Abused: No Physically Abused: No Sexually Abused: No Housing Stability: Low Risk (04/18/2023) Housing Stability Vital Sign Unable to Pay for Housing in the Last Year: No Number of Places Lived in the Last Year: 1 Unstable Housing in the Last Year: No I have reviewed and reconciled the history and medication list with the patient today. REVIEW OF SYMPTOMS: Review of Systems Constitutional: Negative. Negative for fatigue and fever. HENT: Negative. Negative for congestion, ear discharge, ear pain, postnasal drip, rhinorrhea, sinus pressure, sinus pain, sneezing, sore throat and trouble swallowing. Eyes: Negative. Respiratory: Negative for cough, shortness of breath and wheezing. Cardiovascular: Negative. Negative for chest pain, palpitations and leg swelling. Gastrointestinal: Negative. Negative for abdominal distention, abdominal pain, blood in stool, diarrhea and nausea. Genitourinary: Negative. Musculoskeletal: Negative. Skin: Negative. Negative for rash. Neurological: Negative. Psychiatric/Behavioral: Negative. OBJECTIVE: 04/18/2023 11:50 AM 10/24/2023 10:22 AM 11/13/2023 11:29 AM 02/29/2024 8:55 AM 03/03/2024 10:28 AM 03/25/2024 1:32 PM 05/05/2024 9:05 AM Vitals BMI 32.92 kg/m2 32.92 kg/m2 32.92 kg/m2 32.48 kg/m2 BSA (m2) 1.89 m2 1.89 m2 1.89 m2 1.88 m2 Systolic 134 116 128 110 150 Diastolic 86 80 82 78 100 Heart Rate 64 64 72 72 Height (in) 5' 2 5' 2 Weight (lb) 180 180 180 177.6 Visit Report Report Report Report Report Report Report Report Physical Exam Vitals and nursing note reviewed. Constitutional: General: She is not in acute distress. Appearance: Normal appearance. She is normal weight. She is not ill-appearing, toxic-appearing or diaphoretic. HENT: Head: Normocephalic and atraumatic. Right Ear: Tympanic membrane, ear canal and external ear normal. Left Ear: Tympanic membrane, ear canal and external ear normal. Nose: Nose normal. No congestion or rhinorrhea. Mouth/Throat: Mouth: Mucous membranes are moist. Pharynx: Oropharynx is clear. No oropharyngeal exudate or posterior oropharyngeal erythema. Eyes: Extraocular Movements: Extraocular movements intact. Conjunctiva/sclera: Conjunctivae normal. Pupils: Pupils are equal, round, and reactive to light. Neck: Vascular: No carotid bruit. Cardiovascular: Rate and Rhythm: Normal rate and regular rhythm. Pulses: Normal pulses. Heart sounds: Normal heart sounds. No murmur heard. No friction rub. No gallop. Pulmonary: Effort: Pulmonary effort is normal. No respiratory distress. Breath sounds: Normal breath sounds. No wheezing, rhonchi or rales. Chest: Chest wall: No tenderness. Abdominal: General: Bowel sounds are normal. There is no distension. Palpations: Abdomen is soft. Tenderness: There is no guarding. Musculoskeletal: General: No swelling or deformity. Normal range of motion. Cervical back: Normal range of motion and neck supple. Lymphadenopathy: Cervical: No cervical adenopathy. Skin: General: Skin is warm and dry. Capillary Refill: Capillary refill takes less than 2 seconds. Findings: No bruising, lesion or rash. Neurological: General: No focal deficit present. Mental Status: She is alert and oriented to person, place, and time. Mental status is at baseline. Motor: No weakness. Gait: Gait normal. Psychiatric: Mood and Affect: Mood normal. Behavior: Behavior normal. Thought Content: Thought content normal. Judgment: Judgment normal. ASSESSMENT AND PLAN: Assessment/Plan Diagnoses and all orders for this visit: Wellness examination Reviewed family history, risk factors for disease and discussed importance of routine exercise and healthy diet. Recommended routine dental/eye exams and discussed vaccines. Patient will update flu vaccine today and plans to schedule covid booster in near future. Labs discussed today. Discussed routine screenings and patient is UTD. All questions answered. Chronic pain syndrome Follows with pain management and neurology. Disturbance in sleep behavior Stable. Has NICOLE Hyperkinetic heart disease Follows with cardiology. Essential hypertension (CMS/HCC) Follows with cardiology who are managing her HTN and POTS. POTS (postural orthostatic tachycardia syndrome) See above. Disturbance of skin sensation Follows with neurology. Extrapyramidal disease Follows with neurology. stable Chronic fatigue syndrome Follows with neurology. Discussed fatigue and taking vitamin D. Discussed resting when tired and when she has energy, using it. Verbalized understanding. Neuropathy Follows with neurology. Obstructive sleep apnea of adult Hx of. Other headache syndrome Follows with and is managed by neurology. Restless legs See above. Small fiber neuropathy Follows with neurology. Stable on gabapentin and duloxetine Lumbar radiculopathy Stable, follows with neurology. Paresthesias Stable. Follows with neurology. Occipital neuralgia of left side See above. Foraminal stenosis of lumbar region Follows with pain management Mild persistent asthma without complication (CMS/HCC) Stable with allergy control. Dyspnea on exertion Stable. Gastroesophageal reflux disease with esophagitis without hemorrhage Stable. GERD handout provided. Irritable bowel syndrome with diarrhea Stable. Nausea Occasional with occasional vomiting. Discussed bland diet with nausea. Vomiting, unspecified vomiting type, unspecified whether nausea present See above. Acquired absence of both cervix and uterus Polyuria Stable. Follows with urology. Cervical spondylosis without myelopathy Follows with pain management Chondromalacia of patella, right Follows with pain management Inflammation of sacroiliac joint (CMS/HCC) See above. Improving with pain management treatments Lumbosacral spondylosis without myelopathy Stable. Follows with pain management Maltracking of right patella Stable. Facet arthritis of lumbar region Follows with pain management Patellofemoral syndrome of right knee Stable. Primary osteoarthritis, unspecified site Stable. Follows with pain management Narrowing of intervertebral disc space See above. Stable. Trochanteric bursitis of both hips Occasional flares. Stable Cyst of thyroid (CMS/HCC) Stable. TSH normal. Obesity (BMI 30.0-34.9) Encouraged eating a heart healthy diet to help reduce total cholesterol and LDLc, lower blood sugars and triglycerides, and lower blood pressure. Encouraged to eat fruits, vegetables, whole grains, and lean animal protein and fish. Avoid/Limit intake of trans fats, red meats, processed meats, refined carbohydrates (white bread, white rice), baked goods and sweetened beverages. Vitamin D deficiency Supplemented. Vit D level 78 Iron deficiency anemia secondary to inadequate dietary iron intake Stable. H/H in target. Chronic sinusitis, unspecified location Stable on current medication regimen. Uses OTC meds as needed Chronic rhinitis See above. ADHD, predominantly inattentive type (CMS/HCC) Controlled on Adderalll Cutaneous sensory hypersensitivity Follows with neurology. Decreased hearing of left ear stable Depressive disorder (CMS/HCC) Follows with behavioral health. Stable on Cymbalta Dyslipidemia (CMS/HCC) Cholesterol has improved dramatically since last year. Praise given. To continue doing what she is doing, working on diet and incorporate physical activity in to it. Falls No recent falls Generalized anxiety disorder (CMS/HCC) Controlled on cymbalta Chronic bilateral low back pain with left-sided sciatica Stable, follows with pain management Memory loss Pure hyperglyceridemia (CMS/HCC) Improved. Seasonal allergies Controlled with otc meds. Migraine without status migrainosus, not intractable, unspecified migraine type (CMS/HCC) Follows with neurology. Stable. Syncope and collapse Hx of POTS and follows with cardiology. Sensitivity to sunlight Stable. Wears sunscreen and protection when in the sunlight. H/O cardiomyopathy Follows with cardiology. Disorder of sacrum Follows with pain management and just had injections which are helping. Follow up at least annually for wellness in Nov. documented in this encounter [facility] 04-30-2024 History of Present illness Narrative [facility] [address] [place] [address] Patient: Elida Ruiz Sex: female : 1975 Age: 48 y.o. PCP: Yisel Lowry MD 04/30/2024 Elida Ortiz Joseph is here for a(n) post procedure follow up for 04/04/2024 caudal epidural steroid injection with 100% relief of leg pain. Leg pain would get as high as 9/10 prior to caudal. Axial Lumbar pain remains unchanged. Patient completed 4 weeks of aquatic therapy that has provided 50% relief of bilateral hip/bursitis pain. Patient is to continue with aquatic therapy on her own. She was also prescribed Meloxicam 15 mg daily. Patient feels that the medication is helping with her pain symptoms however it is causing increased GI upset. Date of onset of pain: March 2023 , pain has lasted greater than 3 months. Pain scale before treatment: 5/10 Pre-op pain score: 5/10 Post-op pain score: 0/10 Percentage of relief after and duration: see above Pain scale after treatment: 0/10 LLE, 5/10 lumbar and hips Chief Complaint Patient presents with Back Pain HPI: PT (aquatic) from 03/27/2024 -04/22/2024 with 50% relief of bilateral bursitis symptoms. BACK 04/04/2024 caudal epidural steroid injection with 100% relief of leg pain. Lumbar pain remains unchanged Pain scale before treatment: 5/10 Pain scale after treatment: 0/10 LLE, Back Pain This is a chronic problem. The current episode started more than 1 year ago (Mar 2023 exacerbation of chronic low back pain). The problem occurs constantly. The problem has been gradually worsening since onset. The pain is present in the sacro-iliac, lumbar spine and gluteal (into hips). The quality of the pain is described as aching, stabbing, shooting and cramping (dull, sharp, intense, spasms to lumbar). Radiates to: bilateral hips. The pain is at a severity of 5/10. The pain is moderate. Worse during: activity, rolling over. The symptoms are aggravated by sitting, standing, bending, twisting and coughing (walking, stairs, lifting, pushing, pulling, sneezing, transitioning). Stiffness is present All day. Associated symptoms include bladder incontinence, leg pain (into bilateral hips), numbness (right SI, bilat feet), tingling (right SI, bilat feet) and weakness (BLE). Pertinent negatives include no chest pain or fever. Risk factors include obesity. She has tried NSAIDs, muscle relaxant, home exercises, heat and ice (Gabapentin, Tramadol, Naproxen, Prev Injs 2022, Prev PT 2021, Lido Patch, Tens Unit, Biofreeze) for the symptoms. The treatment provided mild relief. The effect of pain on patient's ADLS: Moderate Impairment. Past Medical History: Diagnosis Date ADHD Annular tear of lumbar disc Anxiety AOM (acute otitis media) Asthma Back pain Benign lipomatous neoplasm of skin and subcutaneous tissue BPPV (benign paroxysmal positional vertigo) Cardiomyopathy, peripartum COVID Depression Eczema Cristi-Danlos syndrome GERD (gastroesophageal reflux disease) Hyperlipidemia Hypermobility syndrome Hypertension IBS (irritable bowel syndrome) Joint pain Rt Knee Low back pain Migraines Nephropathy of one kidney due to vesicoureteral reflux Neuropathy Observed sleep apnea Pansinusitis Pneumonia 2020 POTS (postural orthostatic tachycardia syndrome) Restless leg Rhinitis Sacroiliitis (CMS-HCC) Sinusitis, chronic Vesico-ureteral reflux Visual impairment Past Surgical History: Procedure Laterality Date ABDOMINAL SURGERY BLADDER SURGERY SECTION twins CHOLECYSTECTOMY COLONOSCOPY CYSTOSCOPY DILATION AND CURETTAGE OF UTERUS EGD HYSTERECTOMY INJECTION BLOCK EPIDURAL CAUDAL STEROID N/A 04/04/2024 Performed by Pj Cabrales MD at [place] [facility] INSERTION LOOP RECORDER 2014 KNEE ARTHROSCOPY W/ MENISCECTOMY Bilateral also had a lateral release on right knee REMOVAL LOOP RECORDER 2018 SINUS SURGERY x 2 SKIN BIOPSY benign Allergies Allergen Reactions Cephalosporins Other reaction(s): nausea/vomiting Bactrim [Sulfamethoxazole-Trimethoprim] Rash Penicillins Hives and Rash Family History Problem Relation Age of Onset Mental illness Mother Cancer Mother Arthritis Mother Breast cancer Mother Hypertension Mother Miscarriages / Stillbirths Mother Anxiety disorder Mother Lung disease Father Cancer Father Alcohol abuse Father Clotting disorder Father Heart disease Father Hypertension Father Lung cancer Father Hearing loss Maternal Aunt Diabetes Maternal Aunt Cancer Maternal Grandmother Colon cancer Maternal Grandmother Ovarian cancer Maternal Grandmother Pancreatic cancer Maternal Grandmother Diabetes Maternal Grandfather Heart disease Maternal Grandfather Hypertension Maternal Grandfather Stroke Paternal Grandfather Heart disease Paternal Grandfather Hypertension Paternal Grandfather Cancer Niece Social History Socioeconomic History Marital status: Spouse name: Not on file Number of children: Not on file Years of education: Not on file Highest education level: Not on file Occupational History Not on file Tobacco Use Smoking status: Never Smokeless tobacco: Never Vaping Use Vaping status: Never Used Substance and Sexual Activity Alcohol use: Yes Comment: once a year Drug use: Never Sexual activity: Defer Other Topics Concern Not on file Social History Narrative Not on file Social Drivers of Health Financial Resource Strain: Low Risk (04/18/2023) Received from [facility], [facility] Overall Financial Resource Strain (CARDIA) Difficulty of Paying Living Expenses: Not hard at all Food Insecurity: No Food Insecurity (04/30/2024) Hunger Screening Food Insecurity - Worry: Never True Food Insecurity - Inability: Never True Transportation Needs: No Transportation Needs (04/18/2023) Received from [facility] PRAPARE - Transportation Lack of Transportation (Medical): No Lack of Transportation (Non-Medical): No Physical Activity: Patient Declined (04/18/2023) Received from [facility] Exercise Vital Sign Days of Exercise per Week: Patient declined Minutes of Exercise per Session: Patient declined Stress: Patient Declined (04/18/2023) Received from [facility] - Occupational Stress Questionnaire Feeling of Stress : Patient declined Social Connections: Socially Integrated (04/18/2023) Received from [facility] Social Connection and Isolation Panel [NHANES] Frequency of Communication with Friends and Family: Three times a week Frequency of Social Gatherings with Friends and Family: Once a week Attends Evangelical Services: More than 4 times per year Active Member of Clubs or Organizations: Yes Attends Club or Organization Meetings: 1 to 4 times per year Marital Status: Interpersonal Safety: Not At Risk (08/21/2023) Received from [facility] Humiliation, Afraid, Rape, and Kick questionnaire Fear of Current or Ex-Partner: No Emotionally Abused: No Physically Abused: No Sexually Abused: No Housing Instability: Low Risk (04/18/2023) Received from [facility] Housing Stability Vital Sign Unable to Pay for Housing in the Last Year: No Number of Places Lived in the Last Year: 1 Unstable Housing in the Last Year: No Review of Systems Constitutional: Negative for fever. HENT: Negative. Eyes: Negative. Respiratory: Negative. Cardiovascular: Negative for chest pain. Gastrointestinal: Negative. Genitourinary: Positive for bladder incontinence and frequency. Musculoskeletal: Positive for back pain. Hips Skin: Negative. Neurological: Positive for tingling (right SI, bilat feet), weakness (BLE) and numbness (right SI, bilat feet). Psychiatric/Behavioral: Negative. Vital Signs: BP (!) 147/101 Pulse 63 Resp 16 Wt 80.7 kg (178 lb) SpO2 100% BMI 32.56 kg/m Physical Exam: GENERAL - Healthy patient that appears stated age. HEENT - Normocephalic / Atraumatic, Extraoccular movements intact, trachea midline, thyroid within normal limits. CV - pulse regular, Warm extremities with appropriate color of nailbeds. RESP - No obvious wheezing, No Shortness of Breath, No overexertion response to exam maneuvers. COORDINATION - remains intact. PSYCH - Alert and Oriented x4, Attentive and appropriate, constitutionally normal, displays normal mood and affect per situation, answered questions appropriately during examination, demonstrated appropriate attention during discussion, demonstrated appropriate cognitive reasoning and understanding of the medical condition by asking appropriate questions regarding the diagnosis and risks/benefits/alternatives of treatment modalities. No obvious deficits in memory, reasoning, or intellect. Lumbar: SKIN - No rashes or bruising in the area of the patient s pain. LYMPH NODES - demonstrate no obvious enlargement. EXTREMITIES - Lower extremities are warm, with minimal edema and palpable pulses. Tenderness to palpation noted in the lumbar spine and paraspinal musculature. Pain is elicited with flexion, extension, and lateral rotation of the lumbar spine. Range of motion is diminished with these motions due to pain. Facet palpation is noted to be painful and facet loading maneuvers elicit pain that is concordant with the patient s normal pain complaints. Some muscle spasm is noted in the overlying musculature. STRENGTH - noted to be 5 out of 5 all muscle groups bilateral lower extremities including muscles involving hip flexion and abduction, knee flexion and extension, as well as foot dorsiflexion and plantarflexion. No notable atrophy, fasciculations or spasm. SENSORY - No notable sensory deficits in the bilateral lower extremities to touch or pinprick in all dermatomal distributions. Straight Leg Raise is negative bilaterally. Tenderness to palpation is noted over the Bilateral SacroIliac Joint: Fabere sign (Daren's Test) is significantly positive, as is compression and distraction of the sacroiliac joints, which is consistent with some of the patient's normal pain. Tenderness to palpation noted over the Bilateral Greater Trochanteric Bursa which is consistent with some of the patient s normal pain. Gait is normal. Assessment/Treatment Plan: Elida was seen today for back pain. Diagnoses and all orders for this visit: Lumbar spondylosis - Case request operating room: INJECTION BLOCK NERVE MEDIAL BRANCH BIlateral L 4/5, 5/1 Trochanteric bursitis of both hips Discontinue Mobic due to adverse side effects Bilateral L4/5, 5/1 Facet Injection/Medial Branch Block - under fluoroscopy It is hopeful that the described procedure will provide symptomatic pain relief. It is felt to be medically necessary noting that the patient has tried and failed more conservative modalities of therapy and this is the next most appropriate step. The procedure was described in detail to the patient as well as the potential benefits of pain reduction alongside risks of the procedure and alternatives. Risks were described as including, but not limited to bleeding, infection, nerve damage, spinal cord injury, paralysis, stroke, dural puncture headache, and medication reaction. The patient expressed understanding regarding the risks and benefits and wishes to proceed. Diagnostic facet injections and medial branch blocks should provide information to confirm that the noted facet arthropathy is the patient s most significant pain generator. If this provides significant but only temporary pain relief, the patient may in the future be a candidate for radiofrequency denervation of the facet joints to provide pain relief for approximately 1 year. Follow up 2 weeks after procedure The medications I have prescribed have been reviewed for medication interactions/contraindications and/or for upcoming procedures: continue current medication regimen without any changes. DISCUSSION: Treatment options discussed with patient and all questions answered to patient's satisfaction. Prescribed medication that requires intensive monitoring for toxicity We do not currently prescribe any controlled substance from this practice. Treatment plans discussed but not opted for at this time: Repeat lumbar medial branch block and/or SI joint injections. Patient would like to proceed with the current outlined treatment plan before moving forward with any other options. It appears that the patient's previous pain is under adequate control with the previous procedure. At this point, we will continue to monitor these symptoms and turn our immediate attention to the more painful complaint that was discussed today. It does appear that is it the new primary pain complaint and the patient would likely benefit from a procedure as treatment for this complaint as well. The spine model was demonstrated and MRI was reviewed and used to explain the condition. Chronic conditions not treated during this visit that affected my overall medical decision making: Comorbidity- Obesity The patient does have a comorbid condition of obesity. This will be taken into account in that obesity will contribute to certain pain conditions. It can contribute to pain from degenerative disc disease as well as osteoarthritis of the joints. Many neuropathic symptoms are also amplified due to axial spine loading. Special benefits will also need to be given to procedures. Many procedures are technically more difficult in the light of severe obesity. I will also consider the possibility of undiagnosed obstructive sleep apnea (which often accompanies obesity) when prescribing any narcotic medications. I will weigh the risks and benefits and fully discuss them with the patient for these reasons. Comorbidity- Depression The patient has an ongoing issue with depression and currently feels these symptoms are under control and further feels that appropriate pain management would also help these symptoms. The patient is optimistic about the treatment plan we have laid out. We will continue to monitor these symptoms and remain cogniscent that they may affect the patients perceived improvement from the treatment and willingness to pursue further treatment. At this time the patient appears to be mentally and emotionally stable to undergo procedural and medical therapy. If any warning signs become present, I may refer the patient to a mental health professional for further evaluation. Comorbidity- Sleep Apnea The patient has a history of obstructive sleep apnea. Due to this reason, special consideration will need to be given to the prescription of narcotics in that they may depress respiratory function and lead to respiratory insufficiency or failure. Consideration will also be given to procedure safety in that sedation is used in the outpatient setting for any planned procedure. These records will be available to the anesthesiologist to tailor a safe anesthetic for the procedure. The patient will also be observed closely in the recovery area and may even require admission if they remain overly sedated for an extended period of time and cannot maintain an airway. These preparations will be made as necessary. OARRS: Reviewed. Scribe Statement: Scribed for and in the presence of MAURICIO BAGLEY PA-C by Saida Bowman CNA. Provider Statement: I, MAURICIO BAGLEY PA-C, personally performed the services described in the documentation, as scribed by Saida Bowman CNA in my presence, and it is both accurate and complete. Saida Bowman CNA 04/30/24 [id number] Mauricio Bagley PA-C 04/30/24 [id number] documented in this encounter [facility] 03-31-2024 Telephone encounter Note Rx sent [facility] 03-31-2024 Miscellaneous Notes Rx sent documented in this encounter [facility] 03-25-2024 History of Present illness Narrative Images from the original note were not included. Subjective Patient ID: Elida Ruiz is a 48 y.o. 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 Pt states Dr. Geovany gutierrez'haylee foot, pt relates falling about a month ago, no fractures. Pt states started hurting after fall, symptoms are flared up by increased activity, rest helps alleviate pain. Pt takes naproxen from pain management, icing, heat. ). HPI This is a new patient who presents to clinic via referral with concern of left foot pain. Patient describes an injury a proximally 2 months ago. She describes an incident of the fall but can not recall any inversion or eversion stress to the foot. Since that time she has had pain along the dorsum of the left foot, worse with prolonged walking, standing. No treatment tried. She did have radiographs with her primary care physician last month. Review of Systems Constitutional: Positive for activity change. Negative for appetite change. Respiratory: Negative for chest tightness and shortness of breath. Cardiovascular: Negative for chest pain. Musculoskeletal: Positive for arthralgias and gait problem. Skin: Negative for color change and wound. Neurological: Negative for weakness and numbness. Psychiatric/Behavioral: Negative for agitation and behavioral problems. Hematological: Does not bruise/bleed easily. Endocrine: Negative for cold intolerance and heat intolerance. Allergic/Immunologic: Negative for immunocompromised state. Past medical History Past Medical History: Diagnosis Date Acute left-sided low back pain with left-sided sciatica Acute non-recurrent pansinusitis Acute pain of right knee Acute pansinusitis 01/20/2021 ADHD (attention deficit hyperactivity disorder) ([facility]) Allergic rhinitis Annular tear of lumbar disc Anxiety AOM (acute otitis media) Arthritis Asthma ([facility]) Benign lipomatous neoplasm of skin and subcutaneous tissue of unspecified sites BPPV (benign paroxysmal positional vertigo), unspecified laterality Chronic sinusitis COVID 06/2020 Dehydration 08/23/2021 Depression ([facility]) Eczema Fall ER fell ankles rolled Xray left, no fracture Gastro-esophageal reflux disease without esophagitis Grief ([facility]) History of being hospitalized patient has never been hospitalized for mental health History of being hospitalized ER fell 2-1-18 ankles rolled.Xray left, no fracture. Hypermobility syndrome Hypertension (CMS/HCC) IBS (irritable bowel syndrome) Obstructive sleep apnea Other infectious disease DENIES H/O BLOOD BORNE DISEASE Otitis media 01/20/2021 POTS (postural orthostatic tachycardia syndrome) Restless leg S/P abdominal hysterectomy Sacroiliitis (CMS/HCC) Vesico-ureteral reflux Medications Current Outpatient Medications: amphetamine-dextroamphetamine XR (Adderall XR) 10 MG 24 hr capsule, Take 1 capsule (10 mg) by mouth in the morning. Do not crush or chew.., Disp: 90 capsule, Rfl: 0 atorvastatin (Lipitor) 20 MG tablet, TAKE 1 TABLET AT BEDTIME, Disp: 90 tablet, Rfl: 3 cholecalciferol (Vitamin D-3) 50 MCG (1999 UT) tablet, Take 2,000 Units by mouth in the morning. Taking 2 tabs ., Disp: , Rfl: DULoxetine (Cymbalta) [address] capsule, Take 3 tabs qd, Disp: 270 capsule, Rfl: 3 erenumab (Aimovig) 140 MG/ML injection, Inject 140 mg under the skin every 28 (twenty-eight) days., Disp: , Rfl: gabapentin (Neurontin) 300 MG capsule, Take 1 capsule (300 mg) by mouth in the morning and 1 capsule (300 mg) in the evening and 1 capsule (300 mg) before bedtime., Disp: 270 capsule, Rfl: 0 lidocaine (Lidoderm) 5 % patch, , Disp: , Rfl: naproxen (Naprosyn) 250 MG tablet, 500 mg in the morning and 500 mg in the evening. Take with meals., Disp: , Rfl: nebivolol (Bystolic) 10 MG tablet, Take 10 mg by mouth in the morning., Disp: , Rfl: Trokendi XR 200 MG capsule sustained-release 24 hr, TAKE 1 CAPSULE AT BEDTIME, Disp: 90 capsule, Rfl: 3 albuterol HFA 90 mcg/act inhaler, Inhale 2 puffs every 4 (four) hours if needed for wheezing for up to 10 days, Disp: 18 g, Rfl: 0 methylPREDNISolone (Medrol Dospak) 4 MG tablets, Take as directed on package., Disp: 21 tablet, Rfl: 0 Allergies Cephalosporins, Penicillins, and Sulfamethoxazole-trimethoprim Past Surgical History Past Surgical History: Procedure Laterality Date SECTION, LOW TRANSVERSE 2012 CHOLECYSTECTOMY 02/2010 CYSTOSCOPY 02/13/2017 cystogram - Dr Moreno D&C FIRST TRIMESTER / TX INCOMPLETE / MISSED / SEPTIC / INDUCED 2009 LOOP RECORDER IMPLANT 10/2014 LOOP RECORDER REMOVAL 01/30/2018 NERVE BLOCK 2013 facet joint AK KNEE SCOPE,CLEAN/DRAIN Right 05/25/2015 DR GUIDO [place] KNEE SCOPE,CLEAN/DRAIN Left 10/12/2015 DR GUIDO SEPTOPLASTY 11/2009 [facility];Disease:Chronic sinusitis TOTAL ABDOMINAL HYSTERECTOMY W/ BILATERAL SALPINGOOPHORECTOMY 01/30/2017 Dr. Vallecillo Family History Family History Problem Relation Name Age of Onset Anxiety disorder Mother Una Breast cancer Mother Una metastatic Mental illness Mother Una Arthritis Mother Una Cancer Mother Una Hypertension Mother Una Miscarriages / Stillbirths Mother Una Alcohol abuse Father Demetrius Lung cancer Father Demetrius Cancer Father Demetrius Heart disease Father Demetrius Hypertension Father Demetrius Cervical cancer Niece Cancer Maternal Grandmother Mateo Stroke Paternal Grandfather Judd Diabetes Mother's Sister Jyoti Hearing loss Mother's Sister Jyoti Psoriasis Neg Hx Objective Physical Exam Constitutional: Appearance: She is obese. HENT: Head: Normocephalic and atraumatic. Cardiovascular: Comments: DP, PT pulses weakly palpable 1/4. Skin temperature warm to cold. Pulmonary: Effort: Pulmonary effort is normal. No respiratory distress. Abdominal: Palpations: There is no mass. Musculoskeletal: Cervical back: No rigidity. Comments: Weightbearing examination reveals slight planus morphology. She is able to perform a double heel rise test with tenderness on the left foot. Left foot: Isolated and maximal tenderness over the dorsal aspect of metatarsal shafts 2, 3, 4. Negative forefoot compression test. Muscle strength 5/5 for dorsiflexion with tenderness, tenderness on eversion as well. Muscle strength 5/5 for all remaining quadrants. Ankle dorsiflexion 0 degrees with the knee extended, flexed. No significant edema or ecchymosis noted. Skin: Capillary Refill: Capillary refill takes more than 3 seconds. Findings: No lesion or rash. Neurological: Mental Status: She is alert. Comments: No loss of protective sensation, gross sensation intact. Psychiatric: Mood and Affect: Mood normal. Behavior: Behavior normal. XR foot 3+ views left Imaging Result: AP, medial oblique, lateral views are weight-bearing. No acute fractures or dislocations. Joints appear well-maintained. First ray elevation. Slight increase in the IM 1-2 degrees angle, lateral deviation of the hallux. Slight lateral subluxation of the sesamoids. Assessment/Plan ICD-10-CM 1. Stress fracture of left foot, initial encounter M84.375A XR foot 3+ views left 2. Left foot pain M79.672 Ambulatory referral to Podiatry XR foot 3+ views left methylPREDNISolone (Medrol Dospak) 4 MG tablets 3. Equinus contracture of left ankle M24.572 4. Difficulty walking R26.2 5. Instability of left ankle joint M25.372 Patient examined and evaluated. I personally reviewed 3 radiographs of the left foot from February which were nonweightbearing. Clinical evaluation concerning for stress fracture of the central metatarsals. Recommend repeating weight-bearing radiographs in office today. These were obtained and I personally reviewed them with her. Again I do not see any indication on radiographs that there is active stress fracture but clinically her exam is consistent with stress reaction. At this time I recommend avoiding impact activity, rest as much as possible with the exception of activities needed for daily living. Recommend power step orthotics to reduce metatarsal overload and redistribute pressure more evenly across the entire foot. Patient was fitted for and dispensed power steps today. Wear at all times. Avoid barefoot walking. Additionally I gave her a coupon for [employer]. I recommend that she purchase a more substantial and supportive pair of shoes rather than the Nikes which she is wearing today. This will help to stress shield the metatarsals to allow for healing. Discussed the importance of home stretching program to reduce gastrocs soleal overload. Home exercise program printed off and given to her today. Complete daily as instructed. Recommend Medrol Dosepak to help reduce symptomatology across the midfoot. Prescription sent to her pharmacy today. Follow up in 6 weeks. If she is still having significant issues next step would be an MRI. This note was created with the assistance of a speech recognition program. While intending to generate a timely document that accurately reflects the content of the visit, no guarantee can be provided that every grammatical or spelling mistake has been or will be identified or corrected. Thank you for your understanding. Thad Capps DPM documented in this encounter [facility] 03-12-2024 History of Present illness Narrative [facility] [address] [place] [address] Patient: Elida Ruiz Sex: female : 1975 Age: 48 y.o. PCP: Yisel Lowry MD 03/12/2024 Elida Ruiz is here for an initial consultation. Date of onset of pain: 2021 , pain has lasted greater than 3 months. Chief Complaint Patient presents with Back Pain HPI: Back Pain This is a chronic problem. The current episode started more than 1 year ago (Mar 2023 exacerbation of chronic low back pain). The problem occurs constantly. The problem has been gradually worsening since onset. The pain is present in the sacro-iliac, lumbar spine and gluteal (Lt > Rt). The quality of the pain is described as aching and stabbing (dull, sharp, intense, spasms). Radiates to: Lt Hip down LLE. The pain is at a severity of 5/10. The pain is moderate. Worse during: activity, rolling over. The symptoms are aggravated by sitting, standing, bending, twisting and coughing (walking, stairs, lifting, pushing, pulling, sneezing, transitioning). Stiffness is present All day. Associated symptoms include bladder incontinence, leg pain (LLE), numbness (LLE), tingling (LLE) and weakness (LLE). Pertinent negatives include no chest pain or fever. She has tried NSAIDs, muscle relaxant, home exercises, heat and ice (Gabapentin, Tramadol, Naproxen, Prev Injs 2022, Prev PT 2021, Lido Patch, Tens Unit, Biofreeze) for the symptoms. The treatment provided mild relief. The effect of pain on patient's ADLS: Moderate Impairment. Past Medical History: Diagnosis Date ADHD Annular tear of lumbar disc Anxiety AOM (acute otitis media) Asthma Back pain Benign lipomatous neoplasm of skin and subcutaneous tissue BPPV (benign paroxysmal positional vertigo) Cardiomyopathy, peripartum COVID Depression Eczema Cristi-Danlos syndrome GERD (gastroesophageal reflux disease) Hyperlipidemia Hypermobility syndrome Hypertension IBS (irritable bowel syndrome) Joint pain Rt Knee Low back pain Migraines Nephropathy of one kidney due to vesicoureteral reflux Neuropathy Observed sleep apnea Pansinusitis Pneumonia June/Cov2020 POTS (postural orthostatic tachycardia syndrome) Restless leg Rhinitis Sacroiliitis (CMS-HCC) Sinusitis, chronic Vesico-ureteral reflux Visual impairment Past Surgical History: Procedure Laterality Date ABDOMINAL SURGERY BLADDER SURGERY SECTION twins CHOLECYSTECTOMY COLONOSCOPY CYSTOSCOPY DILATION AND CURETTAGE OF UTERUS EGD HYSTERECTOMY INSERTION LOOP RECORDER 2014 KNEE ARTHROSCOPY W/ MENISCECTOMY Bilateral also had a lateral release on right knee REMOVAL LOOP RECORDER 2018 SINUS SURGERY x 2 SKIN BIOPSY benign Allergies Allergen Reactions Cephalosporins Other reaction(s): nausea/vomiting Bactrim [Sulfamethoxazole-Trimethoprim] Rash Penicillins Hives and Rash Family History Problem Relation Age of Onset Mental illness Mother Cancer Mother Arthritis Mother Breast cancer Mother Hypertension Mother Miscarriages / Stillbirths Mother Anxiety disorder Mother Lung disease Father Cancer Father Alcohol abuse Father Clotting disorder Father Heart disease Father Hypertension Father Lung cancer Father Hearing loss Maternal Aunt Diabetes Maternal Aunt Cancer Maternal Grandmother Colon cancer Maternal Grandmother Ovarian cancer Maternal Grandmother Pancreatic cancer Maternal Grandmother Diabetes Maternal Grandfather Heart disease Maternal Grandfather Hypertension Maternal Grandfather Stroke Paternal Grandfather Heart disease Paternal Grandfather Hypertension Paternal Grandfather Cancer Niece Social History Socioeconomic History Marital status: Spouse name: Not on file Number of children: Not on file Years of education: Not on file Highest education level: Not on file Occupational History Not on file Tobacco Use Smoking status: Never Smokeless tobacco: Never Vaping Use Vaping status: Never Used Substance and Sexual Activity Alcohol use: Yes Comment: once a year Drug use: Never Sexual activity: Defer Other Topics Concern Not on file Social History Narrative Not on file Social Determinants of Health Financial Resource Strain: Low Risk (04/18/2023) Received from [facility] [employer], [facility] Overall Financial Resource Strain (CARDIA) Difficulty of Paying Living Expenses: Not hard at all Food Insecurity: No Food Insecurity (03/12/2024) Hunger Screening Food Insecurity - Worry: Never True Food Insecurity - Inability: Never True Transportation Needs: No Transportation Needs (04/18/2023) Received from [facility], [facility] PRAPARE - Transportation Lack of Transportation (Medical): No Lack of Transportation (Non-Medical): No Physical Activity: Patient Declined (04/18/2023) Received from [facility] Exercise Vital Sign Days of Exercise per Week: Patient declined Minutes of Exercise per Session: Patient declined Stress: Patient Declined (04/18/2023) Received from [facility] - Occupational Stress Questionnaire Feeling of Stress : Patient declined Social Connections: Socially Integrated (04/18/2023) Received from [facility] Social Connection and Isolation Panel [NHANES] Frequency of Communication with Friends and Family: Three times a week Frequency of Social Gatherings with Friends and Family: Once a week Attends Evangelical Services: More than 4 times per year Active Member of Clubs or Organizations: Yes Attends Club or Organization Meetings: 1 to 4 times per year Marital Status: Interpersonal Safety: Not At Risk (08/21/2023) Received from [facility] Humiliation, Afraid, Rape, and Kick questionnaire Fear of Current or Ex-Partner: No Emotionally Abused: No Physically Abused: No Sexually Abused: No Housing Instability: Low Risk (04/18/2023) Received from [facility] Housing Stability Vital Sign Unable to Pay for Housing in the Last Year: No Number of Places Lived in the Last Year: 1 Unstable Housing in the Last Year: No Review of Systems Constitutional: Negative for chills and fever. HENT: Negative. Eyes: Negative. Respiratory: Negative for cough and shortness of breath. Cardiovascular: Negative for chest pain. Gastrointestinal: IBS Endocrine: Negative. Genitourinary: Positive for bladder incontinence. Musculoskeletal: Positive for back pain. Skin: Negative. Allergic/Immunologic: Negative. Neurological: Positive for tingling (LLE), weakness (LLE) and numbness (LLE). Hematological: Negative. Psychiatric/Behavioral: Negative. Vital Signs: BP (!) 144/105 Pulse 67 Ht 157.5 cm (5' 2 ) Wt 80.7 kg (178 lb) SpO2 100% BMI 32.56 kg/m Physical Exam: GENERAL - Healthy patient that appears stated age. HEENT - Normocephalic / Atraumatic, Extraoccular movements intact, trachea midline, thyroid within normal limits. CV - pulse regular, Warm extremities with appropriate color of nailbeds. RESP - No obvious wheezing, No Shortness of Breath, No overexertion response to exam maneuvers. COORDINATION - remains intact. PSYCH - Alert and Oriented x4, Attentive and appropriate, constitutionally normal, displays normal mood and affect per situation, answered questions appropriately during examination, demonstrated appropriate attention during discussion, demonstrated appropriate cognitive reasoning and understanding of the medical condition by asking appropriate questions regarding the diagnosis and risks/benefits/alternatives of treatment modalities. No obvious deficits in memory, reasoning, or intellect. Lumbar: SKIN - No rashes or bruising in the area of the patient s pain. LYMPH NODES - demonstrate no obvious enlargement. EXTREMITIES - Lower extremities are warm, with minimal edema and palpable pulses. Tenderness to palpation noted in the lumbar spine and paraspinal musculature. Pain is elicited with flexion, extension, and lateral rotation of the lumbar spine. Range of motion is diminished with these motions due to pain. Facet palpation is noted to be somewhat tender and facet loading maneuvers are mildly positive, but not concordant with the patient s normal pain complaints. STRENGTH - noted to be 5 out of 5 all muscle groups bilateral lower extremities including muscles involving hip flexion and abduction, knee flexion and extension, as well as foot dorsiflexion and plantarflexion. No notable atrophy, fasciculations or spasm. SENSORY - No notable sensory deficits in the bilateral lower extremities to touch or pinprick in all dermatomal distributions with exception to decreased sensation in the Left L4, L5, and S1 levels. Straight Leg Raise is Positive on the Left Tenderness to palpation is noted over the Bilateral SacroIliac Joint: Fabere sign (Daren's Test) is significantly positive, as is compression and distraction of the sacroiliac joints, which is consistent with some of the patient's normal pain. Tenderness to palpation noted over the Bilateral Greater Trochanteric Bursa which is consistent with some of the patient s normal pain. Gait is normal. Assessment/Treatment Plan: Elida was seen today for back pain. Diagnoses and all orders for this visit: Disorder of sacrum - Ambulatory referral to Physical Therapy; Future Trochanteric bursitis of both hips - Ambulatory referral to Physical Therapy; Future Lumbar spondylosis - Ambulatory referral to Physical Therapy; Future Spinal stenosis of lumbar region with neurogenic claudication - Ambulatory referral to Physical Therapy; Future - Case request operating room: INJECTION BLOCK EPIDURAL CAUDAL STEROID Other orders - meloxicam (MOBIC) 15 mg tablet; Take 1 tablet (15 mg total) by mouth in the morning. Mobic 15 mg daily With Regard to medication management, it is felt that the patient would benefit from the changes mentioned above. This should provide symptomatic pain relief as part of the comprehensive pain management strategy outlined. Risks, Benefits, Side effects, and possible interactions of these medications were reviewed and the medication agreement has been discussed, agreed upon, and signed. The patient understands compliance concerns and the requirement of pill counts and drug screens while taking medications prescribed by this clinic. Physical/Aquatic Therapy - It is felt that the patient will benefit from a course of physical therapy focusing on the above mentioned diagnosis. We will recommend that the physical therapist fully evaluate and treat at their discretion considering the modalities that are most useful for the condition being treated. This may include modalities of comfort including moist heat, ultrasound, and TENS therapy. It may also utilize manual therapy and myofascial release for the myofascial component of the patient s pain. It will likely advance to modalities aimed at stabilizing and strengthing the target area while improving range of motion as well. We are also requesting that the physical therapist send notes that will keep our clinic updated to the patient s progress. Caudal Epidural Steroid Injection - under fluoroscopy with the use of contrast dye (unless contraindicated) It is hopeful that the described procedure will provide symptomatic pain relief. It is felt to be medically necessary noting that the patient has tried and failed more conservative modalities of therapy and this is the next most appropriate step. The procedure was described in detail to the patient as well as the potential benefits of pain reduction alongside risks of the procedure and alternatives. Risks were described as including, but not limited to bleeding, infection, nerve damage, spinal cord injury, paralysis, stroke, dural puncture headache, and medication reaction. The patient expressed understanding regarding the risks and benefits and wishes to proceed. It was explained that Caudal injections often require a series of 2-3 before significant relief is noted, but we will determine after each injection if another one is indicated. Depending on the amount and duration of relief obtained from the injection, additional modalities of therapy including medications and physical therapy may need to be utilized alongside or following the injections. Follow up 2 weeks after procedure The medications I have prescribed have been reviewed for medication interactions/contraindications and/or for upcoming procedures: continue current medication regimen without any changes. DISCUSSION: Treatment options discussed with patient and all questions answered to patient's satisfaction. Discussed the rules and regulations surrounding prescription of opioids and compliance at length. Failure to follow the rules and regulation will result in tapering and discontinuation of medications if applicable. Prescribed medication that requires intensive monitoring for toxicity We do not currently prescribe any controlled substance from this practice. The spine model was demonstrated and MRI and xray was reviewed and used to explain the condition. OARRS: Reviewed. Scribe Statement: Scribed for and in the presence of MAURICIO BAGLEY PA-C by Saida Bowman CNA. Provider Statement: IMAURICIO PA-C, personally performed the services described in the documentation, as scribed by Saida Bowman CNA in my presence, and it is both accurate and complete. Saida Bowman CNA 03/12/24 1258 Mauricio Bagley PA-C 03/12/24 1300 documented in this encounter [facility] [email or web address] 03-12-2024 Instructions Saida Bowman CNA - 03/12/2024 12:00 PM EDT Epidural Steroid Injection (SUKHDEV) / Nerve Root Injection / Nerve Block These procedure(s) involve the injection of a steroid and anesthetic into the epidural space or the nerve sheath that is both diagnostic and potentially therapeutic for alleviating discomfort of the legs and arms secondary to compression of the respective nerves due to bulging discs, bone spurs and other potential causes. Steroids are potent anti-inflammatory drugs that act to decrease the swollen and inflamed nerves thus relieving your clinical symptoms. How Long Will This Procedure Last? The extent and duration of pain relief may depend on the amount of inflammation and how many areas are involved. Other coexisting factors may be responsible for your pain. You and your physician will discuss expected results of procedure(s). After Your Injection You may experience soreness and tenderness at the area of treatment. This pain may not occur until later today after the numbing medicine wears off. The steroid can take 3-5 days to work and provide noticeable improvement. Activity You may feel temporary numbness, weakness or tingling: In the neck, arm, or fingertips (if your procedure was done in your neck) In the legs (if your procedure was done in your lower back) These symptoms are normal, and should subside within 3-4 hours. In that time, be careful to avoid falls. As a safety precaution, you must have a power screwdriver operator after a lumbar nerve root injection, even if you do not receive sedation. Resume activity as tolerated when function has returned. Medications Resume your routine medications after your procedure. You may resume blood thinners per your regular schedule after the procedure. If you received sedation: If you received sedation for your procedure, you may feel sleepy or not yourself for several hours today. For the next 24 hours avoid activities that requires alertness or coordination. This includes: Driving or operating heavy machinery Using power tools Consuming alcohol Do not make important or complex decisions or sign legal documents in the next 24 hours. Other Instructions: If you feel severe pain at the injection site with swelling and redness, increased leg weakness, a fever of 101 or higher, headache (or worsening headache), changes in vision or urinary retention: Please call the office at , or have someone take you to the nearest emergency room. Tell the emergency room staff that you recently had a spine injection. A doctor must evaluate you for bleeding and injection complications. If you lose control over bowel, bladder, or legs: Go to the nearest emergency room. If you are diabetic, the steroids used in this procedure can increase your blood sugar. If your blood sugar is 250mg/dL or higher, contact your primary care physician, or the doctor who manages your diabetes, to discuss how to get it back to normal. documented in this encounter [facility] 03-04-2024 Telephone encounter Note Sasha with [facility] left message regarding rx they received for Tramadol 1 every 6 hours for 10 day supply. Wanting to know if that should have gone to them or local pharmacy. If okay to wait for [facility] to fill they are needing to know that Dr. Hinson is aware that she is taking Adderall as well. [phone] Ref# [id number] [facility] 03-04-2024 Miscellaneous Notes Sasha with [facility] left message regarding rx they received for Tramadol 1 every 6 hours for 10 day supply. Wanting to know if that should have gone to them or local pharmacy. If okay to wait for [facility] to fill they are needing to know that Dr. Hinson is aware that she is taking Adderall as well. [phone] Ref# [id number] documented in this encounter [facility] 03-03-2024 History of Present illness Narrative Images from the original note were not included. Elida Ruiz is a 48 y.o. female presents with chief complaint of Foot Pain (Lt foot pain - fell about a month ago, has been hurting off and on since. Hurts along medial side and top of it. Swelling.) HPI: HPI Pt states her left foot is painful, medial and top for a month. Pt fell on tailbone and on ankles. Pt states her ankle has been hurting since then on and off. Increased with walking and hyperextending. Pt is using ice. No arthritic rub or brace. Pt had tendonitis in that foot in the past. Pt is seeing Dr Hinson for her back. She is taking tramadol and aleve. SUBJECTIVE: MEDICATIONS: Current Outpatient Medications Medication Instructions Aimovig 140 mg, Subcutaneous, Every 28 days albuterol HFA 90 mcg/act inhaler 2 puffs, Inhalation, Every 4 hours PRN amphetamine-dextroamphetamine XR (Adderall XR) 10 MG 24 hr capsule 10 mg, Oral, Every morning, Do not crush or chew. atorvastatin (Lipitor) 20 MG tablet TAKE 1 TABLET AT BEDTIME cholecalciferol (VITAMIN D-3) 2,000 Units, Oral, Daily, Taking 2 tabs DULoxetine (Cymbalta) [address] capsule Take 3 tabs qd gabapentin (NEURONTIN) 300 mg, Oral, 3 times daily lidocaine (Lidoderm) 5 % patch naproxen (NAPROSYN) 500 mg, 2 times daily with meals nebivolol (BYSTOLIC) 10 mg, Oral, Daily traMADol (ULTRAM) 50 mg, Oral, Every 6 hours PRN Trokendi XR 200 MG capsule sustained-release 24 hr 1 capsule, Oral, Nightly ALLERGIES: Allergies Allergen Reactions Cephalosporins Other Reaction(s): nausea/vomiting Other reaction(s): nausea/vomiting Penicillins Hives and Rash Other Reaction(s): Other vomiting and rash Sulfamethoxazole-Trimethoprim Rash Other Reaction(s): Other History: Past Medical History: Diagnosis Date Acute left-sided low back pain with left-sided sciatica Acute non-recurrent pansinusitis Acute pain of right knee Acute pansinusitis 01/20/2021 ADHD (attention deficit hyperactivity disorder) (CMS/HCC) Allergic rhinitis Annular tear of lumbar disc Anxiety AOM (acute otitis media) Asthma (CMS/HCC) Benign lipomatous neoplasm of skin and subcutaneous tissue of unspecified sites BPPV (benign paroxysmal positional vertigo), unspecified laterality Chronic sinusitis COVID 06/2020 Dehydration 08/23/2021 Depression (CMS/HCC) Eczema Fall ER fell ankles rolled Xray left, no fracture Gastro-esophageal reflux disease without esophagitis Grief ([facility]) History of being hospitalized patient has never been hospitalized for mental health History of being hospitalized ER fell 2-1-18 ankles rolled.Xray left, no fracture. Hypermobility syndrome Hypertension (CMS/HCC) IBS (irritable bowel syndrome) Obstructive sleep apnea Other infectious disease DENIES H/O BLOOD BORNE DISEASE Otitis media 01/20/2021 POTS (postural orthostatic tachycardia syndrome) Restless leg S/P abdominal hysterectomy Sacroiliitis (CMS/HCC) Vesico-ureteral reflux Past Surgical History: Procedure Laterality Date SECTION, LOW TRANSVERSE 2012 CHOLECYSTECTOMY 02/2010 CYSTOSCOPY 02/13/2017 cystogram - Dr Moreno D&C FIRST TRIMESTER / TX INCOMPLETE / MISSED / SEPTIC / INDUCED 2009 LOOP RECORDER IMPLANT 10/2014 LOOP RECORDER REMOVAL 01/30/2018 NERVE BLOCK 2013 facet joint [place] KNEE SCOPE,CLEAN/DRAIN Right 05/25/2015 DR GUIDO [place] KNEE SCOPE,CLEAN/DRAIN Left 10/12/2015 DR GUIDO SEPTOPLASTY 11/2009 [facility];Disease:Chronic sinusitis TOTAL ABDOMINAL HYSTERECTOMY W/ BILATERAL SALPINGOOPHORECTOMY 01/30/2017 Dr. Vallecillo Family History Problem Relation Name Age of Onset Anxiety disorder Mother Una Breast cancer Mother Una metastatic Mental illness Mother Una Arthritis Mother Una Cancer Mother Una Hypertension Mother Una Miscarriages / Stillbirths Mother Una Alcohol abuse Father Demetrius Lung cancer Father Demetrius Cancer Father Demetrius Heart disease Father Demetrius Hypertension Father Demetrius Cervical cancer Niece Cancer Maternal Grandmother Mateo Stroke Paternal Grandfather Judd Diabetes Mother's Sister Jyoti Hearing loss Mother's Sister Jyoti Psoriasis Neg Hx Social History Socioeconomic History Marital status: Spouse name: Paddy Number of children: Not on file Years of education: Not on file Highest education level: Not on file Occupational History 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, 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 Tobacco Use Smoking status: Never Passive exposure: Never Smokeless tobacco: Never Tobacco comments: Parents were heavy smokers growing up Vaping Use Vaping status: Never Used Substance and Sexual Activity Alcohol use: Not Currently Comment: Caffeine intake 1-2 cups per day pop Drug use: Never Sexual activity: Not on file Other Topics Concern Not on file Social History Narrative Living with: Spouse and twin daughters Patient is on social Social Determinants of Health Financial Resource Strain: Low Risk (04/18/2023) Overall Financial Resource Strain (CARDIA) Difficulty of Paying Living Expenses: Not hard at all Food Insecurity: No Food Insecurity (08/03/2023) Received from [facility], [facility] Hunger Screening Within the past 12 months we worried whether our food would run out before we got money to buy more.: Never True Within the past 12 months the food we bought just didn't last and we didn't have money to get more.: Never True Transportation Needs: No Transportation Needs (04/18/2023) PRAPARE - Transportation Lack of Transportation (Medical): No Lack of Transportation (Non-Medical): No Physical Activity: Patient Declined (04/18/2023) Exercise Vital Sign Days of Exercise per Week: Patient declined Minutes of Exercise per Session: Patient declined Stress: Patient Declined (04/18/2023) [employer] [place] [employer] - Occupational Stress Questionnaire Feeling of Stress : Patient declined Social Connections: Socially Integrated (04/18/2023) Social Connection and Isolation Panel [NHANES] Frequency of Communication with Friends and Family: Three times a week Frequency of Social Gatherings with Friends and Family: Once a week Attends Evangelical Services: More than 4 times per year Active Member of Clubs or Organizations: Yes Attends Club or Organization Meetings: 1 to 4 times per year Marital Status: Intimate Partner Violence: Not At Risk (08/21/2023) Received from [facility], [facility] Humiliation, Afraid, Rape, and Kick questionnaire Fear of Current or Ex-Partner: No Emotionally Abused: No Physically Abused: No Sexually Abused: No Housing Stability: Low Risk (04/18/2023) Housing Stability Vital Sign Unable to Pay for Housing in the Last Year: No Number of Places Lived in the Last Year: 1 Unstable Housing in the Last Year: No REVIEW OF SYMPTOMS: Review of Systems Constitutional: Positive for fatigue. Negative for appetite change (but pt is concerned that she is gaining weight), chills, fever, night sweats and hot flashes. Respiratory: Negative for shortness of breath. Cardiovascular: Positive for leg swelling (lt foot, ankle). Negative for palpitations. Gastrointestinal: Negative for diarrhea, nausea and vomiting. Genitourinary: Incontinence, with bending , or lifting Musculoskeletal: Positive for arthralgias (pt is having Lt foot pain, medial, lateral and top rated 5/10), back pain and gait problem. Lt foot pain Skin: Negative for rash and wound. No bruising Psychiatric/Behavioral: Positive for sleep disturbance. OBJECTIVE: 03/29/2023 10:44 AM 04/18/2023 11:16 AM 04/18/2023 11:50 AM 10/24/2023 10:22 AM 11/13/2023 11:29 AM 02/29/2024 8:55 AM 03/03/2024 10:28 AM Vitals BMI 30.73 kg/m2 32.92 kg/m2 32.92 kg/m2 BSA (m2) 1.83 m2 1.89 m2 1.89 m2 Systolic 144 136 134 116 128 110 Diastolic 94 94 86 80 82 78 Heart Rate 84 64 64 72 Height (in) 5' 2 5' 2 Weight (lb) 168 180 180 Visit Report Report Report Report Report Report Report Physical Exam Vitals and nursing note reviewed. Constitutional: General: She is not in acute distress. Appearance: Normal appearance. She is obese. She is not ill-appearing, toxic-appearing or diaphoretic. HENT: Head: Normocephalic and atraumatic. Nose: Nose normal. Eyes: Conjunctiva/sclera: Conjunctivae normal. Comments: Good eye contact Cardiovascular: Rate and Rhythm: Normal rate and regular rhythm. Heart sounds: No murmur heard. Comments: 2 plus d pedis pulses Pulmonary: Effort: Pulmonary effort is normal. No respiratory distress. Breath sounds: Normal breath sounds. No wheezing, rhonchi or rales. Abdominal: General: Bowel sounds are normal. There is no distension. Palpations: Abdomen is soft. Tenderness: There is no abdominal tenderness. Musculoskeletal: Right lower leg: No edema. Left lower leg: Edema (scant lt foot swelling, dorsum) present. Comments: Medial and lateral foot is tender on palpation. No bruising, Increased pain with dorsiflexion of foot. Faint swelling on the dorsum of foot Skin: General: Skin is warm and dry. Capillary Refill: Capillary refill takes less than 2 seconds. Coloration: Skin is not jaundiced or pale. Findings: No bruising or rash. Neurological: Mental Status: She is alert and oriented to person, place, and time. Psychiatric: Behavior: Behavior normal. Thought Content: Thought content normal. ASSESSMENT AND PLAN: Assessment/Plan Diagnosis Plan 1. Left foot pain XR foot 3+ views left 2. Small fiber neuropathy stable 3. Occipital neuralgia of left side pt is seeing neurology 4. Foraminal stenosis of lumbar region Pt is seeing neurology 5. Chronic fatigue syndrome TSH T4, free CBC and differential TSH T4, free CBC and differential 6. Mild persistent asthma without complication (CMS/HCC) 7. POTS (postural orthostatic tachycardia syndrome) pt is seeing cardiology, pt states she has been pretty good concerning this 8. Essential hypertension (CMS/HCC) Lipid panel Comprehensive metabolic panel Lipid panel Comprehensive metabolic panel b/p is controlled 9. Inflammation of sacroiliac joint (CMS/HCC) pt states she is still having back pain. Is in the process of seeing pain management again 10. Weight gain TSH T4, free TSH T4, free 11. Other fatigue 12. Vitamin D deficiency Vitamin D 25 hydroxy Vitamin D 25 hydroxy 13. Need for vaccination Flu vaccine greater than or equal to 3 years old, preservative free IM 14. Female incontinence Pt is agreeable to urology. Declined s/s of UTI, has incontinence with bending or lifting Flu vaccine today in the office. Discussed weight gain over the year. Pt has not been as active due to back pain. I will get a thyroid lab with her routine fall labs. Pt has been seeing pain management . Pt is seeing neurology. Refer to urology for incontinence- Refer to Dr Eduardo for foot pain Follow up for wellness documented in this encounter [facility] 02-29-2024 History of Present illness Narrative Images from the original note were not included. CHIEF COMPLAINT REASON FOR VISIT: Lumbar radiculopathy, POTS, small fiber neuropathy, ADHD, occipital neuralgia left side HPI: Elida Ruiz is a 48 y.o. female who presents for a follow up. She is still taking Gabapentin 300 mg TID. She did see Dr. Rossi for one visit. She states that she was going to go back for injections but then there was an issue with insurance and then she kept playing phone tag with their office and gave up. States he wanted to do more than one injection and insurance was not approving it. She states if she bends over her back with spasm or if she sits to long or lays to long. She states she has a hard time lifting her left leg due to her hip when she is trying to get dressed. Pain does radiate down into her legs. She states she has been having a few headaches a month. She does still take Nurtec for acute treatment and aimovig for prevention. She is still taking adderall 10 mg daily for her ADHD. Working well for her fatigue and focus. She states she has had some more frequent POTS flares. She states when she is sitting in zoroastrianism she will get really warm. States she does still get some insomnia but does not think it is from the adderall. Denies any other symptoms or concerns. CURRENT MEDICATIONS: ALLERGIES/DISCONTINUE MEDICATIONS Current Outpatient Medications Medication Instructions Aimovig 140 mg, Subcutaneous, Every 28 days albuterol HFA 90 mcg/act inhaler 2 puffs, Inhalation, Every 4 hours PRN amphetamine-dextroamphetamine XR (Adderall XR) 10 MG 24 hr capsule 10 mg, Oral, Every morning, Do not crush or chew. atorvastatin (Lipitor) 20 MG tablet TAKE 1 TABLET AT BEDTIME cholecalciferol (VITAMIN D-3) 2,000 Units, Oral, Daily, Taking 2 tabs DULoxetine (Cymbalta) [address] capsule Take 3 tabs qd gabapentin (NEURONTIN) 300 mg, Oral, 3 times daily lidocaine (Lidoderm) 5 % patch naproxen (NAPROSYN) 500 mg, 2 times daily with meals nebivolol (BYSTOLIC) 10 mg, Oral, Daily Trokendi XR 200 MG capsule sustained-release 24 hr 1 capsule, Oral, Nightly Allergies Allergen Reactions Cephalosporins Other Reaction(s): nausea/vomiting Other reaction(s): nausea/vomiting Penicillins Hives and Rash Other Reaction(s): Other vomiting and rash Sulfamethoxazole-Trimethoprim Rash Other Reaction(s): Other There are no discontinued medications. PAST MEDICAL HISTORY: SURGICAL/SOCIAL/FAMILY HISTORY DEPRESSION SCREEN: Past Medical History: Diagnosis Date Acute left-sided low back pain with left-sided sciatica Acute non-recurrent pansinusitis Acute pain of right knee Acute pansinusitis 01/20/2021 ADHD (attention deficit hyperactivity disorder) (CMS/HCC) Allergic rhinitis Annular tear of lumbar disc Anxiety AOM (acute otitis media) Asthma (CMS/HCC) Benign lipomatous neoplasm of skin and subcutaneous tissue of unspecified sites BPPV (benign paroxysmal positional vertigo), unspecified laterality Chronic sinusitis COVID 06/2020 Dehydration 08/23/2021 Depression (CMS/HCC) Eczema Fall ER fell ankles rolled Xray left, no fracture Gastro-esophageal reflux disease without esophagitis Grief (CMS/HCC) History of being hospitalized patient has never been hospitalized for mental health History of being hospitalized ER fell 2-1-18 ankles rolled.Xray left, no fracture. Hypermobility syndrome Hypertension (CMS/HCC) IBS (irritable bowel syndrome) Obstructive sleep apnea Other infectious disease DENIES H/O BLOOD BORNE DISEASE Otitis media 01/20/2021 POTS (postural orthostatic tachycardia syndrome) Restless leg S/P abdominal hysterectomy Sacroiliitis (CMS/HCC) Vesico-ureteral reflux Past Surgical History: Procedure Laterality Date SECTION, LOW TRANSVERSE 2011 CHOLECYSTECTOMY 02/2010 CYSTOSCOPY 02/13/2017 cystogram - Dr Moreno D&C FIRST TRIMESTER / TX INCOMPLETE / MISSED / SEPTIC / INDUCED 2009 LOOP RECORDER IMPLANT 10/2014 LOOP RECORDER REMOVAL 01/30/2018 NERVE BLOCK 2013 facet joint [place] KNEE SCOPE,CLEAN/DRAIN Right 05/25/2015 DR GUIDO [place] KNEE SCOPE,CLEAN/DRAIN Left 10/12/2015 DR GUIDO SEPTOPLASTY 11/2009 [facility];Disease:Chronic sinusitis TOTAL ABDOMINAL HYSTERECTOMY W/ BILATERAL SALPINGOOPHORECTOMY 01/30/2017 Dr. Vallecillo Social History Tobacco Use Smoking status: Never Passive exposure: Never Smokeless tobacco: Never Tobacco comments: Parents were heavy smokers growing up Vaping Use Vaping status: Never Used Substance Use Topics Alcohol use: Not Currently Comment: Caffeine intake 1-2 cups per day pop Drug use: Never Family History Problem Relation Name Age of Onset Anxiety disorder Mother Una Breast cancer Mother Una metastatic Mental illness Mother Una Arthritis Mother Una Cancer Mother Una Hypertension Mother Una Miscarriages / Stillbirths Mother Una Alcohol abuse Father Demetrius Lung cancer Father Demetrius Cancer Father Demetrius Heart disease Father Demetrius Hypertension Father Demetrius Cervical cancer Niece Cancer Maternal Grandmother Mateo Stroke Paternal Grandfather Judd Diabetes Mother's Sister Jyoti Hearing loss Mother's Sister Jyoti Psoriasis Neg Hx Depression: Not at risk (08/21/2023) Received from [facility], [facility] PHQ-2 Patient Health Questionnaire-2 Score: 0 REVIEW OF SYMPTOMS: Review of Systems Constitutional: Positive for fatigue. Negative for chills, diaphoresis and fever. HENT: Negative for ear pain, tinnitus and trouble swallowing. Eyes: Negative for photophobia and visual disturbance. Respiratory: Negative for cough and shortness of breath. Cardiovascular: Negative for palpitations and leg swelling. Gastrointestinal: Negative for abdominal pain and nausea. Genitourinary: Negative for difficulty urinating and urgency. Musculoskeletal: Positive for back pain, neck pain and neck stiffness. Negative for arthralgias and myalgias. Neurological: Positive for weakness and headaches. Negative for tremors, light-headedness and numbness. Psychiatric/Behavioral: Negative for agitation, confusion and suicidal ideas. OBJECTIVE: 02/29/2024 8:55 AM 11/13/2023 11:29 AM 10/24/2023 10:22 AM Vitals BMI 32.92 kg/m2 BSA (m2) 1.89 m2 Systolic 128 116 Diastolic 82 80 Heart Rate 64 64 Height (in) 5' 2 Weight (lb) 180 Visit Report Report Report Report EXAM: Neurological Exam Mental Status Awake, alert and oriented to person, place and time. Oriented to person, place and time. Recent and remote memory are intact. Speech is normal. Language is fluent with no aphasia. Attention and concentration are normal. Cranial Nerves CN II: Visual acuity is normal. Visual umaña full to confrontation. CN III, IV, : Extraocular movements intact bilaterally. Normal lids and orbits bilaterally. Pupils equal round and reactive to light bilaterally. CN V: Facial sensation is normal. CN VII: Full and symmetric facial movement. CN VIII: Hearing is normal. CN XII: Tongue midline without atrophy or fasciculations. Motor Normal muscle bulk throughout. Normal muscle tone. Right Left Wrist flexion 5 5 Wrist extension 5 5 Right Left Deltoid 5 5 Biceps 5 5 Triceps 5 5 Wrist flexor 5 5 Wrist extensor 5 5 Glutei 5 5 Iliopsoas 5 5 Quadriceps 5 5 Gastrocnemius 5 5 Anterior tibialis 5 5 Posterior tibialis 5 5 Sensory Light touch is normal in upper and lower extremities. Pinprick is normal in upper and lower extremities. Vibration is normal in upper and lower extremities. Reflexes Right Left Brachioradialis 2+ 2+ Biceps 2+ 2+ Patellar 2+ 2+ Achilles 2+ 2+ Right Plantar: downgoing Left Plantar: downgoing Right pathological reflexes: Agueda's absent. Ankle clonus absent. Left pathological reflexes: Agueda's absent. Ankle clonus absent. Coordination [id number], rapid alternating movements and jvgo-[id number] normal bilaterally without dysmetria. Gait Normal casual, toe, heel and tandem gait. Romberg is absent. PROCEDURE: NONE ASSESSMENT AND PLAN: Diagnoses and all orders for this visit: Lumbar radiculopathy Foraminal stenosis of lumbar region Lumbosacral spondylosis without myelopathy Acute left-sided low back pain with left-sided sciatica I will place new Ambulatory referral to Pain Medicine-Dr. Keron Smiley for deeper injections @ S1 level or to see if she would be a candidate for high frequency spinal cord stimulator. Start traMADol (Ultram) 50 MG tablet; Take 1 tablet (50 mg) by mouth every 6 (six) hours if needed for severe pain for up to 10 days Small fiber neuropathy Continue with Gabapentin 300 mg TID Migraines Continue with Aimovig for prevention treatment of migraines and nurtec for acute treatment. ADHD, predominantly inattentive type (CMS/HCC Continue with Adderall 10 mg daily. Helps her with focus and fatigue. POTS (postural orthostatic tachycardia syndrome) Follow up 3 months. documented in this encounter [facility] 08-21-2023 Note Elida Ruiz is a pl easant 48 year old female previously evaluated for orthostatic intolerance (OI) consistent with a small fiber neuropathy, subset postural orthostatic tachycardia syndrome (POTS), the connective tissue disorder of hypermobility at our [facility] in the [facility] at the [facility]. Chief Complaint: POTS follow up She went to the ED for CP, new onset extending into right arm. Reported negative evaluation. Normal cxr, labs, troponins. Atypical CP. Intermittent CP. Sharp pain. Rt arm. Seated, at rest. Also had debilitating back pain and nerve pain in legs, hands. She has a neurosurgeon evaluation. Spinal cord stimulator suggested. Blood pressure intermittent higher. Some syncope and dizziness. No episodes of syncope until the last two weeks. She does not have illness. Dizzy and nauseated. She believes the pain may be contributing to this. Some heart palpitations. Review of Systems Constitutional: Positive for malaise/fatigue. Cardiovascular: Positive for chest pain, irregular heartbeat, near-syncope, palpitations and syncope. Musculoskeletal: Positive for back pain. Neurological: Positive for dizziness, headaches, light-headedness, numbness and paresthesias. Objective Vitals reviewed. Constitutional: Appearance: Healthy appearance. Not in distress. Neck: Vascular: No JVR. JVD normal. Pulmonary: Effort: Pulmonary effort is normal. Breath sounds: Normal breath sounds. No wheezing. No rhonchi. No rales. Chest: Chest wall: Not tender to palpatation. Cardiovascular: PMI at left midclavicular line. Normal rate. Regular rhythm. Normal S1. Normal S2. Murmurs: There is no murmur. No gallop. No click. No rub. Pulses: Intact distal pulses. Edema: Peripheral edema absent. Abdominal: General: Bowel sounds are normal. Palpations: Abdomen is soft. Tenderness: There is no abdominal tenderness. Musculoskeletal: Normal range of motion. General: No tenderness. Skin: General: Skin is warm and dry. Neurological: General: No focal deficit present. Mental Status: Alert and oriented to person, place and time. [facility] echocardiogram 2017: Global left ventricular systolic function is normal (Visually estimated EF 55%). Normal right ventricular systolic function. The left atrium is normal in size. Unable to assess right sided pressures due to lack of measurable tricuspid regurgitation. No significant valvular abnormalities Assessment/Plan The primary encounter diagnosis was POTS (postural orthostatic tachycardia syndrome). Diagnoses of H/O cardiomyopathy and Hypermobility syndrome were also pertinent to this visit. Problem List Items Addressed This Visit Musculoskeletal Hypermobility syndrome Other H/O cardiomyopathy Other Visit Diagnoses POTS (postural orthostatic tachycardia syndrome) - Primary Relevant Medications nebivolol (Bystolic) 10 mg tablet [facility] Lumbar disc disease, pain. Follow with neurosurgery. POTS: unstable. Likely due to back pain. Continue nebivolol. Had to stop pyridostigmine due to side effects. Atypical CP. Hx cardiomyopathy 12 years ago with a twin . Echocardiogram. [facility] 08-03-2023 History of Present illness Narrative In person visit CC: low back pain HPI: PMH is significant for POTS, but without any traumatic falls due to fainting. 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 She reports that the pain has been ongoing for quite awhile, got worse in January 2023. She grew up dancing and was very hypermobile. She had a twin in 2011 and started experiencing back pain then, had physical therapy through as well as afterwards. She reports that she would get flares of pain, but they generally would improve. 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 Prior to January 2023, she reports that she would go weeks or months in between pain exacerbations in her lower back. She describes these exacerbations as her body tightening, with extremely sharp pain. Starting in January 2023, these exacerbations would occur almost every day. She reports radiation of the pain generally down he back of her left leg, sometimes affecting the back of her right leg as well. She also reports occasional numbness in medial and lateral thighs after sitting for awhile. Denies loss of bowel or bladder control. Denies prior RN PROVIDER RELATIONS infections or trauma. MRI in January 2023 showed lumbar spondylosis and degenerative disc disease, predominantly of the L5-S1 and to a lesser extent, L4-L5 levels. She reports that at the beginning of 2022, she began having epidural steroid injections and re-started physical therapy. She also has tried RFA. None of these interventions has helped with her pain more than a day or two. She had been seeing pain management at [place] and [place] for years, but now she is at [facility]. She just got off two days of bedrest secondary to pain. She also reports neuropathy of her feet bilaterally. She reports it as occasionally feeling like my feet aren't there, with mild burning pain at times. Does not endorse pins and needles sensations. She had an EMG done in [address] [facility] [address] Hinson, a neurologist. She does not recall the results but reports thinking that it said she lost some sensation in her feet bilaterally. PSH: , hysterectomy, cholecystectomy, sinus surgery, lateral release right knee, arthroscopy on left knee. ROS: Review of Systems - General ROS: negative Respiratory ROS: no cough, shortness of breath, or wheezing Cardiovascular ROS: no chest pain or dyspnea on exertion Musculoskeletal ROS: positive for - joint pain negative for - muscle pain Neurological ROS:negative for - bowel and bladder control changes, dizziness, headaches, seizures, or tremors Past Medical History: Diagnosis Date Anxiety Asthma Back pain Cardiomyopathy, peripartum Depression Eczema Cristi-Danlos syndrome GERD (gastroesophageal reflux disease) Hyperlipidemia Hypermobility syndrome Hypertension IBS (irritable bowel syndrome) Migraines Nephropathy of one kidney due to vesicoureteral reflux Neuropathy Pneumonia June/Covid 2020 POTS (postural orthostatic tachycardia syndrome) Visual impairment Past Surgical History: Procedure Laterality Date ABDOMINAL SURGERY BLADDER SURGERY SECTION twins CHOLECYSTECTOMY COLONOSCOPY DILATION AND CURETTAGE OF UTERUS EGD HYSTERECTOMY KNEE ARTHROSCOPY W/ MENISCECTOMY Bilateral also had a lateral release on right knee SINUS SURGERY x 2 SKIN BIOPSY benign Current Outpatient Medications on File Prior to Visit Medication Sig Dispense Refill albuterol (PROVENTIL HFA;VENTOLIN HFA) 90 mcg/actuation inhaler Inhale 2 puffs every 6 (six) hours as needed. amphetamine-dextroamphetamine XR (ADDERALL XR) 20 mg 24 hr capsule 1 capsule in the morning atorvastatin (LIPITOR) 20 mg tablet Take 1 tablet (20 mg total) by mouth in the morning. BREO ELLIPTA 200-25 mcg/dose blister with device USE 1 INHALATION DAILY 240 each 3 DULoxetine (CYMBALTA) 60 mg capsule Take 90 mg by mouth nightly. erenumab-aooe 140 mg/mL auto-injector Inject 140 mg under the skin every 28 days Indications: migraine prevention. gabapentin (NEURONTIN) 300 mg capsule Take 1 capsule (300 mg total) by mouth in the morning and at bedtime. naltrexone HCl (NALTREXONE ORAL) Take 1.5 mg by mouth in the morning. naproxen sodium (ALEVE ORAL) Take 2 tablets by mouth in the morning and at bedtime. nebivolol (BYSTOLIC) 10 mg tablet Take 1 tablet (10 mg total) by mouth in the morning. topiramate 200 mg capsule,extended release 24hr Take 200 mg by mouth nightly. No current facility-administered medications on file prior to visit. Allergies Allergen Reactions Bactrim [Sulfamethoxazole-Trimethoprim] Nausea And Vomiting Cephalosporins Other reaction(s): nausea/vomiting Penicillins Nausea And Vomiting Social History Socioeconomic History Marital status: Spouse name: Not on file Number of children: Not on file Years of education: Not on file Highest education level: Not on file Occupational History Not on file Tobacco Use Smoking status: Never Smokeless tobacco: Never Vaping Use Vaping Use: Never used Substance and Sexual Activity Alcohol use: Yes Comment: once a year Drug use: Never Sexual activity: Defer Other Topics Concern Not on file Social History Narrative Not on file Social Determinants of Health Financial Resource Strain: Not on file Food Insecurity: No Food Insecurity (08/03/2023) Hunger Screening Food Insecurity - Worry: Never True Food Insecurity - Inability: Never True Transportation Needs: Not on file Physical Activity: Not on file Stress: Not on file Social Connections: Not on file Interpersonal Safety: Not on file Housing Instability: Not on file Exam BP 130/82 Pulse 76 Ht 157.5 cm (5' 2.01 ) Wt 75.8 kg (167 lb) BMI 30.54 kg/m Mood/affect normal NC/AT Reasonably groomed and attired Neurological: Awake, alert, oriented x 3 CN intact Speech intact Cognition intact Motor Ankle dorsiflexion 4+/5 on left, hip flexion 4/5 bilaterally (limited by pain?), otherwise No focal motor defecit Sensory intact Gait intact Station normal Coordination intact Reflexes Review of films: I personally reviewed and interpreted the patient's imaging during the clinic visit A/P: Elida Ruiz is a 48 y.o. F who presents for low back pain around the L5 level which occasionally radiates down the back of her leg. MRI in January 2023 showed mild degenerative disc disease. Neurological exam significant for hip flexion 4/5 bilaterally potentially limited by pain and ankle dorsiflexion 4+/5 on left, 5/5 on right; otherwise exam within normal limits. Due to patient's age, other options for management, and lack operable findings on MRI, we would not advise proceeding with surgery at this time. Follow-up as needed in the future for worsening symptoms or develop of new symptoms. Provided education regarding spinal cord stimulation and its trial period--this would be something she can pursue with her pain doctor at [facility]. In person visit CC: low back pain HPI: PMH is significant for POTS, but without any traumatic falls due to fainting. 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 She reports that the pain has been ongoing for quite awhile, got worse in January 2023. She grew up dancing and was very hypermobile. She had a twin in 2011 and started experiencing back pain then, had physical therapy through as well as afterwards. She reports that she would get flares of pain, but they generally would improve. 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 Prior to January 2023, she reports that she would go weeks or months in between pain exacerbations in her lower back. She describes these exacerbations as her body tightening, with extremely sharp pain. Starting in January 2023, these exacerbations would occur almost every day. She reports radiation of the pain generally down he back of her left leg, sometimes affecting the back of her right leg as well. She also reports occasional numbness in medial and lateral thighs after sitting for awhile. Denies loss of bowel or bladder control. Denies prior RN PROVIDER [employer]ATIONS infections or trauma. MRI in January 2023 showed lumbar spondylosis and degenerative disc disease, predominantly of the L5-S1 and to a lesser extent, L4-L5 levels. She reports that at the beginning of 2022, she began having epidural steroid injections and re-started physical therapy. She also has tried RFA. None of these interventions has helped with her pain more than a day or two. She had been seeing pain management at [place] and [place] for years, but now she is at [facility]. She just got off two days of bedrest secondary to pain. She also reports neuropathy of her feet bilaterally. She reports it as occasionally feeling like my feet aren't there, with mild burning pain at times. Does not endorse pins and needles sensations. She had an EMG done in [address] [facility] [address] Hinson, a neurologist. She does not recall the results but reports thinking that it said she lost some sensation in her feet bilaterally. PSH: , hysterectomy, cholecystectomy, sinus surgery, lateral release right knee, arthroscopy on left knee. ROS: Review of Systems - General ROS: negative Respiratory ROS: no cough, shortness of breath, or wheezing Cardiovascular ROS: no chest pain or dyspnea on exertion Musculoskeletal ROS: positive for - joint pain negative for - muscle pain Neurological ROS:negative for - bowel and bladder control changes, dizziness, headaches, seizures, or tremors Medical History Past Medical History: Diagnosis Date Anxiety Asthma Back pain Cardiomyopathy, peripartum Depression Eczema Cristi-Danlos syndrome GERD (gastroesophageal reflux disease) Hyperlipidemia Hypermobility syndrome Hypertension IBS (irritable bowel syndrome) Migraines Nephropathy of one kidney due to vesicoureteral reflux Neuropathy Pneumonia June/Covid 2020 POTS (postural orthostatic tachycardia syndrome) Visual impairment Surgical History Past Surgical History: Procedure Laterality Date ABDOMINAL SURGERY BLADDER SURGERY SECTION twins CHOLECYSTECTOMY COLONOSCOPY DILATION AND CURETTAGE OF UTERUS EGD HYSTERECTOMY KNEE ARTHROSCOPY W/ MENISCECTOMY Bilateral also had a lateral release on right knee SINUS SURGERY x 2 SKIN BIOPSY benign Current Outpatient Medications on File Prior to Visit Medication Sig Dispense Refill albuterol (PROVENTIL HFA;VENTOLIN HFA) 90 mcg/actuation inhaler Inhale 2 puffs every 6 (six) hours as needed. amphetamine-dextroamphetamine XR (ADDERALL XR) 20 mg 24 hr capsule 1 capsule in the morning atorvastatin (LIPITOR) 20 mg tablet Take 1 tablet (20 mg total) by mouth in the morning. BREO ELLIPTA 200-25 mcg/dose blister with device USE 1 INHALATION DAILY 240 each 3 DULoxetine (CYMBALTA) 60 mg capsule Take 90 mg by mouth nightly. erenumab-aooe 140 mg/mL auto-injector Inject 140 mg under the skin every 28 days Indications: migraine prevention. gabapentin (NEURONTIN) 300 mg capsule Take 1 capsule (300 mg total) by mouth in the morning and at bedtime. naltrexone HCl (NALTREXONE ORAL) Take 1.5 mg by mouth in the morning. naproxen sodium (ALEVE ORAL) Take 2 tablets by mouth in the morning and at bedtime. nebivolol (BYSTOLIC) 10 mg tablet Take 1 tablet (10 mg total) by mouth in the morning. topiramate 200 mg capsule,extended release 24hr Take 200 mg by mouth nightly. No current facility-administered medications on file prior to visit. Allergies Allergen Reactions Bactrim [Sulfamethoxazole-Trimethoprim] Nausea And Vomiting Cephalosporins Other reaction(s): nausea/vomiting Penicillins Nausea And Vomiting Social History Socioeconomic History Marital status: Spouse name: Not on file Number of children: Not on file Years of education: Not on file Highest education level: Not on file Occupational History Not on file Tobacco Use Smoking status: Never Smokeless tobacco: Never Vaping Use Vaping Use: Never used Substance and Sexual Activity Alcohol use: Yes Comment: once a year Drug use: Never Sexual activity: Defer Other Topics Concern Not on file Social History Narrative Not on file Social Determinants of Health Financial Resource Strain: Not on file Food Insecurity: No Food Insecurity (08/03/2023) Hunger Screening Food Insecurity - Worry: Never True Food Insecurity - Inability: Never True Transportation Needs: Not on file Physical Activity: Not on file Stress: Not on file Social Connections: Not on file Interpersonal Safety: Not on file Housing Instability: Not on file Exam BP 130/82 Pulse 76 Ht 157.5 cm (5' 2.01 ) Wt 75.8 kg (167 lb) BMI 30.54 kg/m Mood/affect normal NC/AT Reasonably groomed and attired Neurological: Awake, alert, oriented x 3 CN intact Speech intact Cognition intact Motor Ankle dorsiflexion 4+/5 on left, hip flexion 4/5 bilaterally (limited by pain?), otherwise No focal motor defecit Sensory intact Gait intact Station normal Coordination intact Reflexes Review of films: I personally reviewed and interpreted the patient's imaging during the clinic visit A/P: Elida Ruiz is a 48 y.o. F who presents for low back pain around the L5 level which occasionally radiates down the back of her leg. MRI in January 2023 showed mild degenerative disc disease. Neurological exam significant for hip flexion 4/5 bilaterally potentially limited by pain and ankle dorsiflexion 4+/5 on left, 5/5 on right; otherwise exam within normal limits. Due to patient's age, other options for management, and lack operable findings on MRI, we would not advise proceeding with surgery at this time. Follow-up as needed in the future for worsening symptoms or develop of new symptoms. Provided education regarding spinal cord stimulation and its trial period--this would be something she can pursue with her pain doctor at [facility]. Attending addendum; I personally saw and evaluated the patient with the medical student Bob Nava - MS3. Patient has had MRI lumbar - which shows mild DDD. She has some mild weakness in her HF B (4/5) and maybe left DF (4+/5). She had SUKHDEV and RFA. She started having her pain when she had her kids. She is very limited by the pain. She really has not found adequate relief thus far. She is otherwise (other than the mild weakness) neuro intact. I personally reviewed and interpreted her imaging for her - there is no real indication of significant stenosis to address surgically. I would not recommend surgery for her at this time. I did recommend that she at least consider a trial for spinal cord stimulation - she will review that recommendation with her pain management team. FU with me just PRN if something changes. Diagnosis: chronic midline lower back pain, leg weakness, lumbar spondylosis ESVIN VILLALPANDO MD [facility] Instructions Holly Cao CMA - 08/03/2023 9:30 AM EST Patient was seen today by Patient will follow up as needed KK documented in this encounter [facility] 08-01-2023 Miscellaneous Notes Pt states that she has recevied 2 messages regarding her Er visit and her update. No previous messages were listed, She states that she had syncopy episode on Sunday, Chest pain is gone, following up with cardiology next month, [facility] surgeon on Sunday this week. Feels that back pain is driving up her bp. Back is really bad and feels that may be the root of all her problems. documented in this encounter [facility] 08-01-2023 Telephone encounter Note Pt states that she has recevied 2 messages regarding her Er visit and her update. No previous messages were listed, She states that she had syncopy episode on Sunday, Chest pain is gone, following up with cardiology next month, [facility] surgeon on Sunday this week. Feels that back pain is driving up her bp. Back is really bad and feels that may be the root of all her problems. [facility] 05-22-2023 Evaluation note Encounter Date Diagnosis Assessment Notes May, Chronic pain (ICD-10 - G89.29) Follow up after procedure May, Lumbar radiculopathy (ICD-10 - M54.16) 47 year old female here for follow up status post right L4 and L5 transforaminal epidural steroid injection under fluoroscopic guidance. Patient reports 50% pain relief as well as improved walking, standing and daily functions following procedure. She continues to complain of residual right lower extremity pain. She also complains of low back pain. Anatomy of spine as well as different treatment options were discussed in detail with patient in regards to patients condition. I recommend proceeding with a L5, S1 transforaminal epidural steroid injection on the right under fluoroscopic guidance. Risks and benefits of procedure explained to patient; patient verbalizes understanding. May, Sacroiliitis (ICD-10 - M46.1) Consider SI joint injections in the future if needed May, Lumbosacral spondylosis (ICD-10 - M47.817) Consider lumbar facet medial branch nerve blocks followed by RFA if needed in the future [employer] Other 11-14-2023 Evaluation note* Encounter Date Diagnosis Assessment Notes Treatment Notes Treatment Clinical Notes Apr, Inflammation of both sacroiliac joints (ICD-10 - M46.1) Independently reviewed the MRI of the lumbar spine and the report. Also the x-ray of the lumbar spine with flexion and extension views. There is degenerative changes of the L5-S1 disc. The S1 nerve root has no significant impingement bilateral there is a very minimal left-sided disc herniation but this patient's symptoms are equal bilateral leg pain in the right S1 nerve root is got absolutely no impingement. There is no stenosis and no other significant nerve root impingement. The patient also has chronic back pain she has sacroiliac inflammation in addition. I think her pain management has overall been limited to trigger points. I do not believe she has had any trial of facet injections or rhizotomies. She certainly needs sacroiliac injections and she needs trochanteric injections. There are no findings or evidence for surgical intervention on this patient. Apr, Trochanteric bursitis, right hip (ICD-10 - M70.61) Apr, Trochanteric bursitis, left hip (ICD-10 - M70.62) [employer] Other 10-26-2023 Evaluation note* Encounter Date Diagnosis Assessment Notes Treatment Notes Treatment Clinical Notes Mar, Spinal stenosis of lumbar region with neurogenic claudication (ICD-10 - M48.062) -Will damiánt GARRY for [facility] therapy Physical Therapy notes -WIll get GARRY for [facility] pain managment notes -Will get GARRY from [facility] for Dr Hinson notes -Reviewed Xray lumbar 6view -Reviewed MRI face to face with patient which shows. -Reviewed EMG from 07/10/22 in which shows consistent with right S1 radiculopathy. -Will f/u with Dr Brito for surgical consult Medical decision making shows a new problem to me with further workup planned or suggested with the potential for extensive treatment options that were considered with the most applicable given this patient's situation as noted above. Treatment options considered include a combination of physical therapy approaches, pharmacologic management, and interventional procedures. Those most applicable to the patient were discussed at this time. Risk of complications and/or morbidity and mortality is high given that acute and chronic pain poses a threat to life and bodily function if undertreated, poorly treated or with failure to maintain adequate treatment and timely follow up. Given the serious and fluctuating nature of pain with extensive consideration for whenever pain changes, there always remains the possibility of prolonged functional impairment requiring constant patient reassessment and high-level medical decision making. The amount and complexity of data reviewed is moderate given that patient labs, radiology reports, and other test were obtained, reviewed and summarized as applicable from the physician portal and/or outside medical records. Pertinent positive and negative findings were considered in medical decision-making. Mar, Sacroiliac inflammation (ICD-10 - M46.1) Mar, Obesity (BMI 30-39.9) (ICD-10 - E66.9) [employer] Other 06-15-2022 Evaluation note* Encounter Date Diagnosis Assessment Notes Treatment Notes Treatment Clinical Notes Nov, Primary osteoarthritis of right knee (ICD-10 - M17.11) 46 year old female here for follow up status post right superior medial, superior lateral and inferior medial genicular nerve radiofrequency ablation under fluoroscopic guidance. Patient reports minimal pain relief following procedure. She voices continued complaints of right sided knee pain. I discussed different treatment options with the patient and I recommend that she give the procedure more time as it can take up to 6 weeks for maximum relief. In the meantime, she is encouraged to use ice/heat or topical creams as tolerated for pain. Nov, Chronic pain (ICD-10 - G89.29) Follow up after procedure. Nov, Lumbar spondylosis (ICD-10 - M47.816) Reviewed XR results with patient, no acute processes. Recommended conservative treatment at this time and follow up with Dr. Membreno at next visit to discuss possible interventional therapies. [employer] Other 04-04-2022 Evaluation note* Encounter Date Diagnosis Assessment Notes Treatment Notes Treatment Clinical Notes Sep, Right knee pain (ICD-10 - M25.561) Proceed with genicular nerve block. Sep, Primary osteoarthritis of right knee (ICD-10 - M17.11) 46 year old female here for follow up for chronic pain. She was last seen 6 months ago. She voices complaints of right knee pain today. She also complains of low back pain. I recommend proceeding with a right genicular nerve block. Risks and benefits of procedure explained to patient; patient verbalizes understanding. In the meantime I will order updated imaging of the lumbar spine to further evaluate her back pain. Sep, Chronic pain (ICD-10 - G89.29) Follow up after procedure. Sep, Low back pain at multiple sites (ICD-10 - M54.50) Proceed with updated imaging. [employer] Other Evaluation noteNo [facility] [employer] Other Evaluation note* Diagnosis Stress fracture of left foot, initial encounter- Primary Left foot pain Pain in soft tissues of limb Equinus contracture of left ankle Difficulty walking Difficulty in walking Instability of left ankle joint [facility] Diagnosis Anxiety Anxiety state, unspecified Other chronic pain POTS (postural orthostatic tachycardia syndrome) Unspecified tachycardia [facility]* Diagnosis Generalized anxiety disorder (CMS/[facility]) [F41.1] Generalized anxiety disorder Depressive disorder ([facility]) Depressive disorder, not elsewhere classified [facility]* Diagnosis Left foot pain- Primary Pain in soft tissues of limb Stress fracture of left foot, initial encounter Equinus contracture of left ankle documented [facility]* Diagnosis Wellness examination- Primary Chronic pain syndrome Disturbance in sleep behavior Unspecified sleep disturbance Hyperkinetic heart disease Essential hypertension (CMS/[facility]) Unspecified essential hypertension POTS (postural orthostatic tachycardia syndrome) Unspecified tachycardia Disturbance of skin sensation Extrapyramidal disease Unspecified extrapyramidal disease and abnormal movement disorder Chronic fatigue syndrome Neuropathy Mononeuritis of unspecified site Obstructive sleep apnea of adult Other headache syndrome Restless legs Restless legs syndrome (RLS) Small fiber neuropathy Lumbar radiculopathy Thoracic or lumbosacral neuritis or radiculitis, unspecified Paresthesias Disturbance of skin sensation Occipital neuralgia of left side Foraminal stenosis of lumbar region Mild persistent asthma without complication (CMS/HCC) Dyspnea on exertion Other dyspnea and respiratory abnormality Gastroesophageal reflux disease with esophagitis without hemorrhage Irritable bowel syndrome with diarrhea Irritable bowel syndrome Nausea Nausea alone Vomiting, unspecified vomiting type, unspecified whether nausea present Acquired absence of both cervix and uterus Polyuria Cervical spondylosis without myelopathy Chondromalacia of patella, right Inflammation of sacroiliac joint (CMS/HCC) Sacroiliitis, not elsewhere classified Lumbosacral spondylosis without myelopathy Maltracking of right patella Facet arthritis of lumbar region Patellofemoral syndrome of right knee Primary osteoarthritis, unspecified site Narrowing of intervertebral disc space Degeneration of intervertebral disc, site unspecified Trochanteric bursitis of both hips Cyst of thyroid (CMS/HCC) Cyst of thyroid Obesity (BMI 30.0-34.9) Vitamin D deficiency Iron deficiency anemia secondary to inadequate dietary iron intake Chronic sinusitis, unspecified location Chronic rhinitis ADHD, predominantly inattentive type (CMS/HCC) Attention deficit disorder without mention of hyperactivity Cutaneous sensory hypersensitivity Decreased hearing of left ear Depressive disorder (CMS/HCC) Depressive disorder, not elsewhere classified Dyslipidemia (CMS/HCC) Other and unspecified hyperlipidemia Falls Generalized anxiety disorder (CMS/[facility]) Generalized anxiety disorder Chronic bilateral low back pain with left-sided sciatica Memory loss Pure hyperglyceridemia (CMS/HCC) Pure hyperglyceridemia Seasonal allergies Allergic rhinitis, cause unspecified Migraine without status migrainosus, not intractable, unspecified migraine type ([facility]) Syncope and collapse Sensitivity to sunlight Allergy, unspecified not elsewhere classified H/O cardiomyopathy Disorder of sacrum Disorders of sacrum documented [facility]* Diagnosis Lumbar radiculopathy- Primary Thoracic or lumbosacral neuritis or radiculitis, unspecified Foraminal stenosis of lumbar region Lumbosacral spondylosis without myelopathy Acute left-sided low back pain with left-sided sciatica Migraine without aura and without status migrainosus, not intractable ([facility]) Small fiber neuropathy POTS (postural orthostatic tachycardia syndrome) Unspecified tachycardia ADHD, predominantly inattentive type (CMS/HCC) Attention deficit disorder without mention of hyperactivity Small fiber neuropathy- Primary Occipital neuralgia of left side Foraminal stenosis of lumbar region Chronic fatigue syndrome Mild persistent asthma without complication (CMS/HCC) POTS (postural orthostatic tachycardia syndrome) Unspecified tachycardia Essential hypertension (CMS/HCC) Unspecified essential hypertension Inflammation of sacroiliac joint (CMS/HCC) Sacroiliitis, not elsewhere classified [facility] Diagnosis Left foot pain- Primary Pain in soft tissues of limb Small fiber neuropathy Occipital neuralgia of left side Foraminal stenosis of lumbar region Chronic fatigue syndrome Mild persistent asthma without complication (CMS/HCC) POTS (postural orthostatic tachycardia syndrome) Unspecified tachycardia Essential hypertension (CMS/HCC) Unspecified essential hypertension Inflammation of sacroiliac joint (CMS/HCC) Sacroiliitis, not elsewhere classified Weight gain Other symptoms concerning nutrition, metabolism, and development Other fatigue Vitamin D deficiency Need for vaccination Need for prophylactic vaccination and inoculation against unspecified single disease Female incontinence documented [facility]* Diagnosis Lumbar radiculopathy Thoracic or lumbosacral neuritis or radiculitis, unspecified Foraminal stenosis of lumbar region Lumbosacral spondylosis without myelopathy Acute left-sided low back pain with left-sided sciatica documented [facility]* Diagnosis Generalized anxiety disorder (CMS/HCC) [F41.1] Generalized anxiety disorder Depressive disorder (CMS/HCC) Depressive disorder, not elsewhere classified documented in [facility] encounter [facility]* Diagnosis Generalized anxiety disorder (CMS/HCC) [F41.1] Generalized anxiety disorder Depressive disorder (CMS/HCC) Depressive disorder, not elsewhere classified documented [facility] HealthcareEvaluation note* Diagnosis Generalized anxiety disorder (CMS/HCC) [F41.1] Generalized anxiety disorder Depressive disorder (CMS/HCC) Depressive disorder, not elsewhere classified documented in this encounter [facility] HealthcareEvaluation note* Diagnosis Lumbar spondylosis- Primary Lumbosacral spondylosis without myelopathy Lumbar spondylosis- Primary Lumbosacral spondylosis without myelopathy Lumbar spondylosis Lumbosacral spondylosis without myelopathy [facility] Diagnosis ADHD, predominantly inattentive type (CMS/HCC) Attention deficit disorder without mention of hyperactivity POTS (postural orthostatic tachycardia syndrome) Unspecified tachycardia Migraine without aura and without status migrainosus, not intractable (CMS/HCC) Lumbar radiculopathy Thoracic or lumbosacral neuritis or radiculitis, unspecified Small fiber neuropathy documented in this encounter [facility] HealthcareEvaluation note* Diagnosis Lumbar spondylosis- Primary Lumbosacral spondylosis without myelopathy Chronic midline low back pain without sciatica Leg weakness, bilateral Muscle weakness (generalized) documented [facility] Diagnosis Disorder of sacrum- Primary Disorders of sacrum Trochanteric bursitis of both hips Lumbar spondylosis Lumbosacral spondylosis without myelopathy Spinal stenosis of lumbar region with neurogenic claudication Spinal stenosis of lumbar region with neurogenic claudication- Primary Spinal stenosis of lumbar region with neurogenic claudication documented in this encounter [facility] SystemEvaluation [facility]* Diagnosis Lumbar spondylosis- Primary Lumbosacral spondylosis without myelopathy Trochanteric bursitis of both hips Lumbar spondylosis- Primary Lumbosacral spondylosis without myelopathy Lumbar spondylosis Lumbosacral spondylosis without myelopathy [facility] Diagnosis Lumbar spondylosis- Primary Lumbosacral spondylosis without myelopathy Disorder of sacrum Disorders of sacrum Lumbar spondylosis- Primary Lumbosacral spondylosis without myelopathy Lumbar spondylosis Lumbosacral spondylosis without myelopathy Lumbar spondylosis Lumbosacral spondylosis without myelopathy [facility]* Diagnosis Generalized anxiety disorder (CMS/HCC) [F41.1] Generalized anxiety disorder Depressive disorder (CMS/HCC) Depressive disorder, not elsewhere classified documented in this encounter [facility]* Diagnosis Lumbar spondylosis- Primary Lumbosacral spondylosis without myelopathy Disorder of sacrum Disorders of sacrum [facility] Diagnosis Primary insomnia- Primary Persistent disorder of initiating or maintaining sleep Migraine without aura and without status migrainosus, not intractable (CMS/HCC) POTS (postural orthostatic tachycardia syndrome) Unspecified tachycardia ADHD, predominantly inattentive type (CMS/HCC) Attention deficit disorder without mention of hyperactivity documented in this encounter [facility]* Diagnosis Generalized anxiety disorder (CMS/HCC) [F41.1] Generalized anxiety disorder Depressive disorder (CMS/HCC) Depressive disorder, not elsewhere classified documented in this encounter [facility]* Diagnosis Generalized anxiety disorder (CMS/HCC) [F41.1] Generalized anxiety disorder Depressive disorder Depressive disorder, not elsewhere classified documented in this encounter [facility] note* Diagnosis POTS (postural orthostatic tachycardia syndrome) Unspecified tachycardia ADHD, predominantly inattentive type Attention deficit disorder without mention of hyperactivity Lumbar radiculopathy Thoracic or lumbosacral neuritis or radiculitis, unspecified Small fiber neuropathy documented in this encounter [facility]* Diagnosis ADHD, predominantly inattentive type Attention deficit disorder without mention of hyperactivity documented in this encounter [facility] HealthcareHistory general Narrative - Reported* Type Description Date Medical History HTN Medical History HYPERMOBILITY SYNDROME Medical History POTS Medical History IBS Medical History HYSTERECTOMY Medical History RENAL REFLUX Medical History BPPV Medical History OBSTRUCTIVE SLEEP APNEA Medical History CHRONIC SINUSITIS Surgical History SEPTOPLASTY Surgical History CHOLECYSTECTOMY 02/2021 Surgical History LOOP RECORDER PLACEMENT- remove d in 10/2014 Surgical History RIGHT KNEE SCOPE Surgical History LEFT KNEE SCOPE Surgical History RODNEY, EBONI SALPINGECTOMY Surgical History CYSTOSCOPY Hospitalization History SEE ABOVE [employer] Other History general Narrative - Reported* Type Description Date Medical History HTN Medical History HYPERMOBILITY SYNDROME Medical History POTS Medical History IBS Medical History HYSTERECTOMY Medical History RENAL REFLUX Medical History BPPV Medical History OBSTRUCTIVE SLEEP APNEA Medical History CHRONIC SINUSITIS Medical History Arthritis Medical History asthma Medical History high cholesterol Medical History migraine headache Medical History pneumonia Medical History chronic depression Medical History anxiety Surgical History SEPTOPLASTY Surgical History CHOLECYSTECTOMY 02/2021 Surgical History LOOP RECORDER PLACEMENT- remove d in 10/2014 Surgical History RIGHT KNEE SCOPE Surgical History LEFT KNEE SCOPE Surgical History RODNEY, EBONI SALPINGECTOMY Surgical History CYSTOSCOPY Hospitalization History SEE ABOVE [employer] Other InstructionsNot on filedocumented in this encounter [facility] on filedocumented in this encounter [facility] SystemReason for referral (narrative)* Consultation (Routine) - Authorized Specialty Diagnoses / Procedures Referred By Tanvir charles Referred To Contact Pain Medicine Diagnoses Lumbar radiculopathy Foraminal stenosis of lumbar region Lumbosacral spondylosis without myelopathy Acute left-sided low back pain with left-sided sciatica Procedures [place] OFFICE/OUTPATIENT [facility] 60 MINUTES Maryse Hinson MD [address] [place] [address] Pj Cabrales MD [address] [place] [address] Referral ID Status Reason Start Date Expiration Date Visits Requested Visits Authorized [id number] Authorized Specialty Services Required 02/29/2024 08/27/2024 1 1 [facility] Summary Purpose Family History No Family History Records FoundNo Family History Records FoundNo Family History Records FoundNo Family History Records FoundNo Family History Records FoundNo Family History Records FoundNo Family History Records FoundNo Family History Records FoundNo Family History Records Found Advance Directives No Advanced Directives Records FoundNo Advanced Directives Records FoundNo Advanced Directives Records FoundNo Advanced Directives Records FoundNo Advanced Directives Records FoundNo Advanced Directives Records FoundNo Advanced Directives Records FoundNo Advanced Directives Records FoundNo Advanced Directives Records Found History of Past Illness Problem Noted Date Resolved Date SYNCOPE AND COLLAPSE 05/31/2007 03/21/2016 Reason for Referral Specialty Diagnoses / Procedures [facility] Referred To Contact Diagnoses Spinal stenosis of lumbar region with neurogenic claudication Procedures Case request operating room: INJECTION BLOCK EPIDURAL CAUDAL STEROID Mauricio Bagley PA-C [address] [address] Referral ID Status Reason Start Date Expiration Date V isits Requested Visits Authorized [id number] Pending Review 03/12/2024 03/12/2025 1 1 Specialty Diagnoses / Procedures Referred By Tanvir charles Referred To Contact Rehabilitation Diagnoses Disorder of sacrum Trochanteric bursitis of both hips Lumbar spondylosis Spinal stenosis of lumbar region with neurogenic claudication Mauricio Bagley PA-C [address] [address] [facility] [address] [place] [address] Referral ID Status Reason Start Date Expiration Date Visits Requested Visits Authorized [id number] Authorized Specialty Services Required 03/12/2024 03/12/2025 1 1 Additional Source Comments INFORMATION SOURCE (unrecogn ized section and content) DATE CREATED AUTHOR 12/20/2017 [facility] DATE CREATED AUTHOR AUTHOR'S ORGANIZ ATION 07/10/2020 [facility] DATE CREATED AUTHOR AUTHOR'S ORGANIZ ATION 10/19/2021 [facility]ical Specialist DATE CREATED AUTHOR AUTHOR'S ORGANIZ ATION 01/17/2022 [facility]ital DATE CREATED AUTHOR AUTHOR'S ORGANIZ ATION 07/18/2022 [facility] DATE CREATED AUTHOR AUTHOR'S ORGANIZ ATION 08/05/2023 [facility] DATE CREATED AUTHOR AUTHOR'S ORGANIZ ATION 08/07/2024 [facility] DATE CREATED AUTHOR AUTHOR'S ORGANIZ ATION 10/24/2024 [facility] DATE CREATED AUTHOR AUTHOR'S ORGANIZ ATION 01/31/2025 [facility] dical Specialists EPIC Source Comments (unrecognize d section and content) In the event this informatio n is protected by the Federal Confidentiality of Alcohol and Drug Abuse Patient Records regulations: The Federal rules restrict any use of the information to criminally investigate or prosecute any alcohol or drug abuse patient.[facility] REASON FOR VISIT (unrecogniz ed section and content) Reason Comments Follow-up Specialty Diagnoses / Procedures Referred By Tanvir t Referred To Contact Behavioral Health Diagnoses Generalized anxiety disorder (CMS/HCC) Procedures [place] PSYCHIATRIC DIAGNOSTIC EVALUATION [facility] [address] [place] [address] Phone: tel: fax: Yanna Lazcano, [facility] [address] [place] [address] Phone: tel: fax: Referral ID Status Reason Start Date Expiration Date Visits Re quested Visits Authorized [id number] Closed 05/29/2024 11/25/2024 1 1 Reason Comments 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 Pt states Dr. Geovany gutierrez'haylee foot, pt relates falling about a month ago, no fractures. Pt states started hurting after fall, symptoms are flared up by increased activity, rest helps alleviate pain. Pt takes naproxen from pain management, icing, heat. Specialty Diagnoses / Procedures Referred By Contac t Referred To Contact Podiatry Diagnoses Left foot pain Procedures [place] OFFICE/OUTPATIENT NEW HIGH MDM 60 MINUTES Yisel Lowry MD [address] [place] [address] Sydni Eduardo, DPM [address] [place] [address] Referral ID Status Reason Start Date Expiration Date V isits Requested Visits Authorized [id number] Closed Specialty Services Required 03/03/2024 08/30/2024 1 1 Reason Comments Med Refill Reason Comments Follow-up Pt is here today for FUV stress fx Lt foot, still will flare up when she does a lot of walking Reason Comments Annual Exam Cardiology manages b ystolic for pt. Pt states her bp has been high at pain management. Pt is going to follow with cardiology regarding this Reason Comments Foot Pain Lt foot pain - fell about a month ago, has been hurting off and on since. Hurts along medial side and top of it. Swelling. Reason Comments Back Pain Reason Comments Consult New patient consult lumbar mri being pushed noms not w/c Reason Comments Back Pain Reason Onset Date Comments Med Refill 02/11/2025 Care Teams (unrecognized sec tion and content) Scratch Polisher Relationship Specialty Start Date End Date Yisel Lowry MD [address] [place] [address] PCP - General Family Medicine 11/15/22 Lisa Guallpa NP [address] [place] [address] PCP - [employer] 06/18/23 Scratch Polisher Relationship Specialty Start Date End Date Yisel Lowry MD [address] [place] [address] PCP - General Family Medicine 11/15/22 Lisa Guallpa INDIGO MIXER [address] [place] [address], [place] [address] PCP - [employer] 05/18/23 Scratch Polisher Relationship Specialty Start Date End Date Yisel Lowry MD [address] [place] [address] PCP - General Family Medicine 11/15/22 Lisa Guallpa NP [address] [place] [address], [place] [address] PCP - [employer] 05/18/23 Scratch Polisher Relationship Specialty Start Date End Date Yisel Lowry MD [facility] [place] [address] PCP - General Family Medicine 11/15/22 Lisa Guallpa INDIGO MIXER [address] [facility] [address] [place] [address], [place] [address] PCP - [employer] 05/18/23 Scratch Polisher Relationship Specialty Start Date End Date Yisel Lowry MD [facility] [place] [address] PCP - General Family Medicine 11/15/22 Lisa Guallpa INDIGO MIXER [address] [place] [address], [place] [address] PCP - [employer] 05/18/23 Scratch Polisher Relationship Specialty Start Date End Date Yisel Lowry MD [facility] [place] [address] PCP - General Family Medicine 11/15/22 Lisa Guallpa INDIGO MIXER [address] [place] [address], [place] [address] PCP - [employer] 05/18/23 Scratch Polisher Relationship Specialty Start Date End Date Yisel Lowry MD [facility] [place] [address] PCP - General Family Medicine 11/15/22 Lisa Guallpa, INDIGO MIXER [address] [place] [address], [place] [address] PCP - [employer] 05/18/23 Scratch Polisher Relationship Specialty Start Date End Date Yisel Lowry MD [facility] [place] [address] PCP - General Family Medicine 11/15/22 Lisa Guallpa, INDIGO MIXER [address] [facility] [address] [place] [address], [place] [address] PCP - [employer] 05/18/23 Scratch Polisher Relationship Specialty Start Date End Date Yisel Lowry MD [facility] [place] [address] PCP - General Family Medicine 11/15/22 Lisa Guallpa, INDIGO MIXER [address] [place] [address], [place] [address] PCP - [employer] 05/18/23 Scratch Polisher Relationship Specialty Start Date End Date Yisel Lowry MD [facility] [place] [address] PCP - General Family Medicine 11/15/22 Lisa Guallpa, INDIGO MIXER [address] [place] [address], [place] [address] PCP - [employer] 05/18/23 Scratch Polisher Relationship Specialty Start Date End Date Yisel Lowry MD [address] [place] [address] PCP - General Family Medicine 11/15/22 Lisa Guallpa, INDIGO MIXER [address] [facility] [address] [place] [address], [place] [address] PCP - [employer] 05/18/23 Scratch Polisher Relationship Specialty Start Date End Date Yisel Lowry MD [facility] [place] [address] PCP - General Family Medicine 11/15/22 Lisa Guallpa, INDIGO MIXER [address] [facility] [address] [place] [address], [place] [address] PCP - [employer] 05/18/23 Scratch Polisher Relationship Specialty Start Date End Date Yisel Lowry MD [facility] [place] [address] PCP - General Family Medicine 11/15/22 Lisa Guallpa, INDIGO MIXER [address] [facility] [address] [place] [address], [place] [address] PCP - [employer] 05/18/23 Scratch Polisher Relationship Specialty Start Date End Date Yisel Lowry MD [address] [place] [address] PCP - General Family Medicine 11/15/22 Lisa Guallpa, INDIGO MIXER [address] [facility] [address] [place] [address], [place] [address] PCP - [employer] 05/18/23 Scratch Polisher Relationship Specialty Start Date End Date Yisel Lowry MD [address] [place] [address] PCP - General Family Medicine 11/15/22 Lisa Guallpa, INDIGO MIXER [address] [facility] [address] [place] [address], [place] [address] PCP - [employer] 05/18/23 Scratch Polisher Relationship Specialty Start Date End Date Yisel Lowry MD [facility] [place] [address] PCP - General Family Medicine 11/15/22 Lisa Guallpa, INDIGO MIXER [address] [facility] [address] [place] [address], [place] [address] PCP - [employer] 05/18/23 Scratch Polisher Relationship Specialty Start Date End Date Yisel Lowry MD [facility] [place] [address] PCP - General Family Medicine 11/15/22 Lisa Guallpa, INDIGO MIXER [address] [facility] [address] [place] [address], [place] [address] PCP - [employer] 05/18/23 Scratch Polisher Relationship Specialty Start Date End Date Yisel Lowry MD [address] [facility] [place] [address] PCP - General Family Medicine 11/15/22 Lisa Guallpa, INDIGO MIXER [address] [place] [address] PCP - [employer] 05/18/23 Scratch Polisher Relationship Specialty Start Date End Date Yisel Lowry MD [address] [place] [address] PCP - General Family Medicine 10/26/16 Scratch Polisher Relationship Specialty Start Date End Date Yisel Lowry MD [address] [place] [address] PCP - General Family Medicine 11/15/22 Lisa Guallpa, INDIGO MIXER [address] [place] [address] PCP - [employer] 05/18/23 Yanna Lazcano [facility] [address] [facility] [address] [place] [address] Strip Polisher Behavioral Health 07/01/24 Scratch Polisher Relationship Specialty Start Date End Date Yisel Lowry MD [facility] [place] [address] PCP - General Family Medicine 11/15/22 Lisa Guallpa, INDIGO MIXER [address] [place] [address] PCP - [employer] 05/18/23 Yanna Lazcano [facility] [address] [facility] [address] [place] [address] Strip Polisher Behavioral Health 07/01/24 Scratch Polisher Relationship Specialty Start Date End Date WonderYisel tamez MD [address] [place] [address] PCP - General Family Medicine 10/26/16 Scratch Polisher Relationship Specialty Start Date End Date WonderYisel tamez MD [address] [place] [address] PCP - General Family Medicine 10/26/16 Scratch Polisher Relationship Specialty Start Date End Date WonderYisel tamez MD [address] [place] [address] PCP - General Family Medicine 10/26/16 Scratch Polisher Relationship Specialty Start Date End Date WonderYisel tamez MD [address] [place] [address] PCP - General Family Medicine 10/26/16 Scratch Polisher Relationship Specialty Start Date End Date WonderYisel tamez MD [address] [place] [address] PCP - General Family Medicine 11/15/22 Yanna Lazcano [facility] [address] [facility] [address] [place] [address] Strip Polisher Behavioral Health 07/01/24 Scratch Polisher Relationship Specialty Start Date End Date WonderYisel tamze MD [address] [place] [address] PCP - General Family Medicine 11/15/22 Yanna Lazcano [facility] [address] [place] [address] Strip Polisher Behavioral Health 07/01/24 Scratch Polisher Relationship Specialty Start Date End Date Yisel Lowry MD [address] [place] [address] PCP - General Family Medicine 11/15/22 Yanna Lazcano [facility] [address] [place] [address] Strip Polisher Behavioral Health 07/01/24 Scratch Polisher Relationship Specialty Start Date End Date Yisel Lowry MD [address] [place] [address] PCP - General Family Medicine 10/26/16 Scratch Polisher Relationship Specialty Start Date End Date Yisel Lowry MD [address] [place] [address] PCP - General Family Medicine 11/15/22 Yanna Lazcano [facility] [address] [place] [address] Strip Polisher Behavioral Health 07/01/24 Scratch Polisher Relationship Specialty Start Date End Date Yisel Lowry MD [address] [place] [address] PCP - General Family Medicine 11/15/22 Yanna Lazcano [facility] [address] [place] [address] Strip Polisher Behavioral Health 07/01/24 Scratch Polisher Relationship Specialty Start Date End Date Yisel Lowry MD PCP - General Family Medicine 11/15/22 Yanna Lazcano [facility] [address] [place] [address] Strip Polisher Behavioral Health 07/01/24 Scratch Polisher Relationship Specialty Start Date End Date Yisel Lowry MD PCP - General Family Medicine 11/15/22 Yanna Lazcano [facility] [address] [place] [address] Strip Polisher Behavioral Health 07/01/24 Scratch Polisher Relationship Specialty Start Date End Date Yisel Lowry MD PCP - General Family Medicine 11/15/22 Yanna Lazcano [facility] [address] [place] [address] Strip Polisher Behavioral Health 07/01/24 Scratch Polisher Relationship Specialty Start Date End Date Yisel Lowry MD PCP - General Family Medicine 11/15/22 Yanna Lazcano, [facility] [address] [place] [address] Strip Polisher Behavioral Health 07/01/24 Scratch Polisher Relationship Specialty Start Date End Date Yisel Lowry MD PCP - General Family Medicine 11/15/22 Yanna Lazcano [facility] [address] [place] [address] Strip Polisher Behavioral Health 07/01/24 FOR RECORDS PERTAINING TO PATIENTS WHO ARE OR HAVE BEEN ENROLLED IN A CHEMICAL DEPENDENCY/SUBSTANCEABUSE PROGRAM, SOME INFORMATION MAY BE OMITTED. This clinical summary was aggregated from multiple sources. Caution should be exercised in using it in the provision of clinical care. This summary normalizes information from multiple sources, and as a consequence, information in this document may materially change the coding, format and clinical context of patient data. In addition, data may be omitted in some cases. CLINICAL DECISIONS SHOULD BE BASED ON THE PRIMARY CLINICAL RECORDS. [facility] [employer] [facility]. provides no warranty or guarantee of the accuracy or completeness of information in this document.
== END 2025-03-09 09:32 | disposition home or self-care (01) ==
PROVIDERS: PCP Family Medicine; Visit Provider Family Medicine
DX: Z12.31 Encounter for screening mammogram for malignant neoplasm of breast (principal); Z80.3 Family history of malignant neoplasm of breast; Z80.1 Family history of malignant neoplasm of trachea, bronchus and lung; Z80.8 Family history of malignant neoplasm of other organs or systems
CPT/HCPCS: 77063; 77067